=== PATIENT | female | born 1945 | race Caucasian/White ===

== ENCOUNTER → 2017-04-07 | Outpatient (CLI) | payer BC ==
[~2017-04-07] MED LIST: ASPI81TA21 PO; CALCCHW57 PO; CHOL100027 PO; DOXY100C76 PO; FSMD/70 PO; LOPE2TAB84 PO; NAPR1TAB9 PO
--- NOTE | 2017-04-07 13:38 | MAMMOGRAPHY REPORT ---
BILATERAL DIGITAL SCREENING MAMMOGRAM WITH CAD: 04/07/2017 CLINICAL HISTORY: Routine screening. Patient has no complaints. TECHNIQUE: Current study was also evaluated with a Computer Aided Detection (CAD) system. Bilateral CC and MLO views were obtained. COMPARISON: Comparison is made to exams dated: 03/16/2016 mammogram, 03/13/2015 mammogram, 4 mammogram, 03/11/2013 mammogram, 03/07/2012 mammogram, and 03/03/2011 mammogram - [facility]. BREAST COMPOSITION: There are scattered areas of fibroglandular density in both breasts. FINDINGS: No suspicious masses, calcifications, or areas of architectural distortion are noted in ei ther breast. There has been no significant interval change compared to prior exams. Circular markers zoltan bilateral moles. A round benign-appearing 7 mm mass within the left medial breast on the cc vi ew was previously marked with a mole marker on some of the prior exams, and is consistent with a misael gn skin mole. Bilateral benign-appearing calcifications are not significantly changed. IMPRESSION: ACR BI-RADS CATEGORY 2: BENIGN There is no mammographic evidence of malignancy. A 1 year screening mammogram is recommended. The pa tient will receive written notification of the results. Approximately 10% of breast cancers are not detected with mammography. A negative mammographic report should not delay biopsy if a clinically suggestive mass is present. Aixa Mar M.D. /:04/07/2017 12:22:22 Marketing Production Coordinator: Vinny Mccracken, M, [facility] letter sent: Normal 1/2 BI-RADS Code: ACR BI-RADS Category 2: Benign
== END | disposition home or self-care (01) ==
LOC: C.MAMM 08:43
PROVIDERS: ATTEND Obstetrics & Gynecology
DX: Z12.31 Encounter for screening mammogram for malignant neoplasm of breast (principal)

== ENCOUNTER → 2017-04-27 | Outpatient (CLI) | payer BC | END | disposition home or self-care (01) | LOC: C.MAMM 09:56 | PROVIDERS: ATTEND Nurse Practitioner Family | DX: M81.0 Age-related osteoporosis without current pathological fracture (principal); M85.851 Other specified disorders of bone density and structure, right thigh; M85.852 Other specified disorders of bone density and structure, left thigh ==

== ENCOUNTER → 2017-05-09 | Outpatient (CLI) | payer BC ==
--- NOTE | 2017-05-09 10:12 | DIAGNOSTIC IMAGING REPORT ---
CHEST 2 VIEWS ROUTINE CLINICAL HISTORY: Memory loss. COMPARISON STUDY: Chest radiograph August 26, 2014. FINDINGS: Lung volumes are normal. Lungs are clear. No pneumothorax or pleural effusion is noted. Cardiomediastinal silhouette is normal. Pulmonary vascularity is normal. IMPRESSION: No acute cardiopulmonary findings. Electronically signed by: Piotr Dobbs M.D. 05/09/2017 10:11 AM Dictated Date/Time: 05/09/2017 10:04 AM
== END | disposition home or self-care (01) ==
LOC: C.RAD 09:43
PROVIDERS: ATTEND Nurse Practitioner Family
DX: R41.3 Other amnesia (principal)

== ENCOUNTER → 2017-05-26 | Outpatient (CLI) | payer BC ==
[~2017-05-26] MED LIST changes: +GADAVIST IV PRN
--- NOTE | 2017-05-26 10:55 | DIAGNOSTIC IMAGING REPORT ---
BRAIN COMBO CLINICAL HISTORY: R41.3 COMPARISON STUDY: No previous studies for comparison. TECHNIQUE: Utilizing a 1.5 Afsaneh magnet and dedicated coil, multiplanar, multiecho imaging of the brain was performed pre and postcontrast administration. IV administration of 7.5 mL of Gadavist contrast was uneventful. FINDINGS: Significant atrophy over the cerebral convexities. Mild chronic small vessel change of aging. No evidence for an acute ischemic insult on diffusion. No abnormal postcontrast enhancement. Ventricular system is midline. Sella and parasellar regions are unremarkable. IMPRESSION: 1. Atrophy primarily over the cerebral convexities. 2. Mild chronic small vessel change. 3. Otherwise negative study. The above report was generated using voice recognition software. It may contain grammatical, syntax or spelling errors. Electronically signed by: Rao Stratton M.D. 05/26/2017 10:53 AM Dictated Date/Time: 05/26/2017 10:39 AM
== END | disposition home or self-care (01) ==
LOC: C.MRI 09:33
PROVIDERS: ATTEND Nurse Practitioner Family
DX: R41.3 Other amnesia (principal)

== ENCOUNTER 2020-01-20 09:38 | Observation (INO) ==
[2020-01-20 10:11] LABS: Basophils # (auto) 0.02 K/uL (0-0.2); Basophils % (auto) 0.4 %; Hematocrit (blood only) 46.2 % (37-47); Hemoglobin 16.1 g/dL (12.0-16.0); Lymphocytes # (auto) 1.43 K/uL (1.2-3.4); Lymphocytes % (auto) 29.2 %; Mean Corpuscular Hemoglobin 33.5 pg (25-34); Mean Corpuscular Hgb Conc 34.8 g/dL (32-36); Mean Corpuscular Volume 96.3 fL (80-100); Monocytes # (auto) 0.39 K/uL (0.11-0.59); Neutrophils # (auto) 2.95 K/uL (1.4-6.5); Neutrophils % (auto) 60.4 %; Platelet Count 188 K/uL (130-400); RDW Standard Deviation 45.3 fL (36.4-46.3); White Blood Count 4.89 K/uL (4.8-10.8)
[2020-01-20 10:31] LABS: Albumin Level 3.9 gm/dl (3.4-5.0); BUN Creatinine Ratio 14.2 (10-20); Blood Urea Nitrogen 11 mg/dl (7-18); Calcium 9.5 mg/dl (8.5-10.1); Carbon Dioxide 26 mmol/L (21-32); Chloride 107 mmol/L (98-107); Creatinine Clr Calc Pharmacy 67.2 ml/min; Est GFR (African American) 87.5; Est GFR (Non-African American) 75.5; Glucose 83 mg/dl (70-99); Magnesium 2.3 mg/dl (1.8-2.4); Potassium 3.9 mmol/L (3.5-5.1); Sodium 141 mmol/L (136-145)
[2020-01-20] MEDS ORDERED: dilTIAZem HCl 5 MG/ML 5 ML VIAL IV STA (10:31)
--- NOTE | 2020-01-20 10:31 | Emergency Department Note ---
Impression & Plan Atrial fibrillation with RVR, Light-headed ED Provider Note NAME: MARION OLMOS AGE: 74 SEX: F : 1945 ARRIVES VIA: Walk-In INFORMANT: Patient, ED PROVIDER(S): Amol Singleton MD Chief Complaint: DrClarissa referral, palpitations, lightheadedness HPI: [facility] as the patient did have some associated tachycardia and likely atrial fibrillation. Patient has had some associated lightheadedness for several months and palpitations that have been occasional. Patient denies any prior history of irregular heartbeat. The patient's caffeine intake has been normal occasional alcohol use patient denies any tobacco or supplements. Patient has been compl iant with medications. The only recent change was after seeing Dr. Chen she had been given some trazodone as she has had some cognitive issues. Patient denies any fevers, chest pains, shortness of breath, abdominal pain, nausea, vomiting, fevers, chills, or cough. The patient denies any history of DVT or PE is not on blood thinning medications and denies lower extremity swelling. ROS: See HPI for pertinent positives and negatives. A total of 10 systems were reviewed and otherwise negative. Past medical history: See below Surgical history: See below Social history: See below Physical Exam: GENERAL: Wearing glasses and a mask. NAD, non-toxic. EYE EXAM: Normal conjunctiva. PERRL, no anisocoria and EOM's grossly intact w/o pain. NECK: Supple, no nuchal rigidity, no adenopathy, non-tender. No signs of meningismus. LUNGS: Clear to auscultation. Normal chest wall mechanics. HEART: Tachycardic and irregularly irregular, no MRG. ABDOMEN: Abdomen soft, non-tender, normo-active bowel sounds, no masses, no rebound or guarding. BACK: No CVA TTP. SKIN: No rashes and no bruising. UPPER EXTREMITIES: Upper extremities are grossly normal. LOWER EXTREMITIES: Grossly normal, no edema. NEURO EXAM: A&O x3, cranial nerves II-XII grossly intact, normal speech, moves all 4 extremities on command w/o issue. Differential diagnoses: Premature contractions, electrolyte abnormality, cardiac dysrhythmia, thyroid dysfunction, pulmonary embolism, infection, gastrointestinal, as well as other pathologies. Course: Patient was seen and evaluated the bedside. Full history physical exam was p erformed. EKG: Location: Palpitations EKG was obtained after the patient had spontaneously converted. Normal sinus rhythm, rate 82, normal intervals, normal axis, no ST changes or T WI. Imaging Studies: None Cardiac monitoring: An order was placed for continuous cardiac monitoring. The monitor shows a rate of 125 with irregularly irregular rhythm. MDM: Patient was seen due to concern for palpitations. The patient is in A. fib with RVR. Blood work was obtained the patient was given Cardizem. The patient did have improvement in her rate control. Patient was started on heparin drip and I did speak with the on-call hospitalist and the patient was subsequently admitted to the medicine service. I did speak with the on-call spray machine tender Dr. Morin given the patient spontaneous conversion, [id number], still elevated and would warrant anticoagulant medication at this time. This was ordered. I did speak with Dr. Schaeffer of the internal medicine service. Patient was updated with the findings and is agreeable to plan of care. Critical Care: I have personally spent 45 minutes of critical care time in direct management of this patient. This includes bedside care, interpretation of diagnostic studies, and testing, discussion with consultants, patient, and family members, and other require inpatient management activities. This 45 minutes is in excess of all separately billable procedures. Past Med/Surg History Medical History Adjustment disorder with depressed mood Eustachian tube dysfunction FH: cholecystectomy Mild cognitive impairment Rosacea Surgical History S/P abdominal hysterectomy S/P total knee arthroplasty Family History Mother Colon cancer Cancer Father Colon cancer Lung cancer Cancer Social History Smoking Status: Former smoker Tobacco Type: Cigarettes Feels Safe at Home: Yes Allergies Allergies Allergy/AdvReac Type Severity Reaction Status Date / Time Cipro Allergy Unknown rash Verified 02/18/16 06:42 ciprofloxacin Allergy Unknown rash Verified 01/20/20 11:08 Home Meds Home Medications Medication Instructions Recorded Confirmed cholecalciferol (vitamin D3) 125 5,000 unit PO QAM tab 12/21/18 01/20/20 mcg (5,000 unit) tablet alendronate 70 mg tablet 70 mg PO WK tab 01/09/19 01/20/20 multivitamin 1 tab PO QAM 01/09/19 01/20/20 aspirin 81 mg PO WK 01/20/20 01/20/20 calcium carbonate [Tums] 600 mg PO QAM 01/20/20 01/20/20 loperamide 2 mg PO Q6H PRN 01/20/20 01/20/20 Previous Rx's Medication Instructions Recorded donepezil 10 mg tablet 10 mg PO QAM #90 tab 01/15/20 trazodone 50 mg tablet 50 mg PO HS #90 tab 01/15/20 Results & Data (ED) Vital Signs Vital Signs - 24 hr 01/20/20 09:42 01/20/20 10:40 01/20/20 10:50 Temperature 36.3 C L Temperature Source Oral Pulse Rate 122 H 83 Pulse Rate from SpO2 Sensor 74 86 Respiratory Rate 20 19 Blood Pressure 147/86 H Blood Pressure Mean 106 Pulse Oximetry 93 96 97 Oxygen Delivery Method Room Air Sepsis Recent Fever Within 48 Hours No Sepsis New/Unexplained Change in Mental Status N/A Sepsis Action Taken by Nursing No Action Required Home Medications Current Medication List: was personally reviewed by me Laboratory Data Attestation: I reviewed the patient's lab results. Result diagrams: 01/20/20 10:02 01/20/20 10:02 Lab Results 01/20/20 01/20/20 Range/Units 10:02 10:02 WBC 4.89 (4.8-10.8) K/uL RBC 4.80 (4.2-5.4) M/uL Hgb 16.1 H (12.0-16.0) g/dL Hct 46.2 (37-47) % MCV 96.3 (80-100) fL MCH 33.5 (25-34) pg MCHC 34.8 (32-36) g/dL RDW Std Deviation 45.3 (36.4-46.3) fL RDW Coeff of Dave 13.0 (11.5-14.5) % Plt Count 188 (130-400) K/uL MPV 11.0 H (7.4-10.4) fL Immature Gran % (Auto) 0.0 % Neut % (Auto) 60.4 % Lymph % (Auto) 29.2 % Ector % (Auto) 8.0 % Eos % (Auto) 2.0 % Baso % (Auto) 0.4 % Neut # (Auto) 2.95 (1.4-6.5) K/uL Lymph # (Auto) 1.43 (1.2-3.4) K/uL Ector # (Auto) 0.39 (0.11-0.59) K/uL Eos # (Auto) 0.10 (0-0.5) K/uL Baso # (Auto) 0.02 (0-0.2) K/uL Immature Gran # (Auto) 0.00 (0.00-0.02) K/uL Sodium 141 (136-145) mmol/L Potassium 3.9 (3.5-5.1) mmol/L Chloride 107 (98-107) mmol/L Carbon Dioxide 26 (21-32) mmol/L Anion Gap 8.0 (3-11) BUN 11 (7-18) mg/dl Creatinine 0.77 (0.6-1.2) mg/dl Est Cr Clr Drug Dosing 67.2 ml/min Est GFR ( Amer) 87.5 Est GFR (Non-Af Amer) 75.5 BUN/Creatinine Ratio 14.2 (10-20) Glucose 83 (70-99) mg/dl Calcium 9.5 (8.5-10.1) mg/dl Phosphorus 3.0 (2.5-4.9) mg/dl Magnesium 2.3 (1.8-2.4) mg/dl Total Bilirubin 0.7 (0.2-1) mg/dl AST 19 (15-37) U/L ALT 24 (12-78) U/L Alkaline Phosphatase 51 (45-117) U/L Troponin I < 0.015 (0-0.045) ng/ml Total Protein 7.3 (6.4-8.2) gm/dl Albumin 3.9 (3.4-5.0) gm/dl Globulin 3.4 (2.5-4.0) gm/dl Albumin/Globulin Ratio 1.1 (0.9-2) TSH 0.722 (0.300-4.500) uIu/ml Administered Medications Discontinued Medications Diltiazem HCl (Diltiazem Hcl 5 Mg/Ml 5 Ml Vial) 18 mg IV NOW STA Stop: 01/20/20 10:32 Last Admin: 01/20/20 10:50 Dose: Not Given Documented by: [id number] Discharge Plan Visit Data Chief Complaint: Arrhythmia/Palpitations Stated Complaint: AFIB ED Provider: Amol Singleton Discharge Problem: Atrial fibrillation with RVR, Light-headed Forms Stand Alone Forms: [facility] Prescriptions Prescriptions: No Action trazodone 50 mg tablet 50 mg PO HS Qty: 90 RF: 1 donepezil 10 mg tablet 10 mg PO QAM Qty: 90 RF: 1 cholecalciferol (vitamin D3) 5,000 unit tablet 5,000 unit PO QAM RF: 0 alendronate 70 mg tablet 70 mg PO WK RF: 0 multivitamin [Multiple Vitamins] tablet 1 tab PO QAM RF: 0 loperamide 2 mg Tablet 2 mg PO Q6H PRN (Reason: Diarrhea) RF: 0 calcium carbonate [Tums] 300 mg (750 mg) Tablet,Chewable 600 mg PO QAM RF: 0 aspirin 81 mg Tablet,Delayed Release (Dr/Ec) 81 mg PO WK RF: 0
[2020-01-20 10:42] LABS: Alanine Aminotransferase 24 U/L (12-78); Albumin Globulin Ratio 1.1 (0.9-2); Alkaline Phosphatase 51 U/L (45-117); Aspartate Aminotransferase 19 U/L (15-37); Bilirubin,Total 0.7 mg/dl (0.2-1); Globulin 3.4 gm/dl (2.5-4.0); Thyroid Stimulating Hormone 0.722 uIu/ml (0.300-4.500); Total Protein 7.3 gm/dl (6.4-8.2); Troponin I < 0.015 ng/ml (0-0.045)
[2020-01-20] MEDS ORDERED: Heparin IV Standard *NO* Bolus IV ONE (11:02)
[2020-01-20] MEDS ORDERED: HEPARIN SODIUM/DEXTROSE 25,000 UNITS/500 ML BAG IV SCH (11:15)
--- NOTE | 2020-01-20 11:25 | History & Physical Report ---
Date of Service January 20, 2020 Assessment & Plan (1) Atrial fibrillation with RVR: - Admit to tele for obs -likely ongoing for 3-6 months with symptoms - Initially EKG showed afib with RVR in the 140s-150s, but then spontaneously converted prior to receiving any medication in the ER. Will start metoprolol tartrate 25 mg BID as her BP can tolerate this with being slightly elevated at 147/86. - Consult cardiology [id number] score 3 for female age 74, high risk - Started on heparin gtt, will continue - likely can switch to DOAC tomorrow pending cardiology recs - Trend cardiac biomarkers, initial set was negative - EKG reviewed - Check 2 D echo -was on ASA 1x/week at home-hold/dc in favor of anticoagulation - PT/OT consulted (2) Rosacea: - noted (3) Mild cognitive impairment: - Cont aricept, some difficulty recalling short term events at baseline. Spouse helps support the history at bedside. (4) Osteoporosis: continue Fosamax, Vit D, calcium (5) Insomnia: stable, continue trazodone (6) DVT prophylaxis: - heparin gtt CODE: Full Dispo: admit to PCU on OBS History of Present Illness Primary Care Provider: EMILEE Fermin This is a 74 yo female with PMHx of mild cognitive impairment, rosacea, who presents with acute onset of palpitations, with reports of lightheadedness intermittently over the past 6 months. She was having palpitations and had lightheadedness therefore went to her PCPs office this morning. There EKG was completed showing A. fib awith RVR in the 140s to 150s and was referred to the ER. Once here she was ordered to have IV diltiazem, however spontaneously converted prior to receiving any medication. At bedside the patient denies any palpitations, lightheadedness, dizziness. She was seen back in May by PCP where she wore a Holter monitor for 24 hours which did not result in any abnormal findings. She does not currently take any cardiac medications or has ever required seeing a floating derrick operator in the past. Patient walks approximately 1/2 miles per day but otherwise does not exercise routinely. She drinks 1 glass of wine daily, and quit smoking 30 years ago, where she smoked 1 pack/day x 20 years. Her , Xochilt, is present with her at bedside and helps support the history. Allergies Allergy/AdvReac Type Severity Reaction Status Date / Time Cipro Allergy Unknown rash Verified 02/18/16 06:42 ciprofloxacin Allergy Unknown rash Verified 01/20/20 11:08 Home Medications Home Medications Medication Instructions Recorded Confirmed Type cholecalciferol (vitamin D3) 125 5,000 unit PO QAM tab 12/21/18 01/20/20 History mcg (5,000 unit) tablet alendronate 70 mg tablet 70 mg PO WK tab 01/09/19 01/20/20 History multivitamin 1 tab PO QAM 01/09/19 01/20/20 History donepezil 10 mg tablet 10 mg PO QAM #90 tab 01/15/20 01/20/20 Rx trazodone 50 mg tablet 50 mg PO HS #90 tab 01/15/20 01/20/20 Rx aspirin 81 mg PO WK 01/20/20 01/20/20 History calcium carbonate [Tums] 600 mg PO QAM 01/20/20 01/20/20 History loperamide 2 mg PO Q6H PRN 01/20/20 01/20/20 History Past Med/Surg History Medical History Adjustment disorder with depressed mood Eustachian tube dysfunction FH: cholecystectomy Mild cognitive impairment Osteoporosis Rosacea Surgical History S/P abdominal hysterectomy S/P cholecystectomy S/P total knee arthroplasty bilateral, 2009 and 2004 Family History Mother Colon cancer Cancer Father Colon cancer Lung cancer Cancer Social History (Updated 01/20/20 @ 12:31 by Anamaria Schaeffer MD) Smoking Status: Former smoker Tobacco Type: Cigarettes Age Quit Using Tobacco: 44; Cigarettes Per Day: 20; Hx Alcohol Use: Yes Alcohol type: wine Hx Substance Use: No Preferred Language: Maori Communication Ability: Effective Auto Garage Mechanic Required: No Beliefs That Will Affect Care: None Current Living Situation: Spouse Other Information That Helps Us Care for You: No Feels Safe at Home: Yes Safety Concerns: Feels Safe At This Time Assistive Devices: Glasses Review of Systems Review of Systems: Constitutional: No fever, sweats or chills Eyes: No diplopia, no worsening or blurred vision ENT: normal hearing, no trouble swallowing Respiratory: No cough, sputum, dyspnea at rest or on exertion Cardiovascular: No chest pain, tightness or palpitations Abdomen: No pain, nausea, vomiting, diarrhea or constipation Musculoskeletal: No joint pain, calf pain, swelling Neurologic: No weakness, numbness/tingling, or balance problems Psychiatric: No anxiety or depression Skin: No rash or itch Physical Exam Physical Exam: General: awake, alert, no apparent distress Head: Normocephalic, atraumatic ENT: PERRL, EOMI, no pharyngeal exudate, mucous membranes moist Chest: Clear to auscultation, on room air, no adventitious breath sounds Cardiac: Regular rate and rhythm, no murmur, no JVD, normal peripheral pulses, good capillary refill Abdominal: NABS x 4 quadrants, soft, nondistended, nontender to palpation, no r ebound or guarding Extremities: Normal inspection, no peripheral edema or erythema, calfs nontender to palpation Psych: Normal mood and affect Neuro: AAO x 3, strength intact bilaterally and rated 5/5, no motor deficits, speech is clear, no peripheral sensory deficits Results & Data Results & Data ([facility]) Vital Signs (Past 12 Hours) Vital Signs Temp Pulse Resp BP Pulse Ox 01/20/20 10:50 83 19 97 01/20/20 10:40 96 01/20/20 09:42 36.3 C L 122 H 20 147/86 H 93 ECG Additional Comments: 20-JAN-2020 09:49:56 [facility]-EDSTAT ROUTINE RETRIEVAL Atrial fibrillation with rapid ventricular response Marked ST abnormality, possible inferior subendocardial injury Abnormal ECG When compared with ECG of 09-FEB-2016 16:27, Atrial fibrillation has replaced Sinus rhythm Vent. rate has increased BY [address] now depressed in Inferior leads ST now depressed in Anterolateral leads Nonspecific T wave abnormality now evident in Inferior leads T wave inversion now evident in Lateral leads 25mm/s 10mm/mV 150Hz 9.0.9 12SL 241 LYNEN: 16 Referred by: REFERRED SELF Unconfirmed Vent. rate 147 BPM GA interval * ms QRS duration 96 ms QT/QTc 288/450 ms P-R-T axes * 50 207 Code Status & VTE Plan Code Status Full code-discussed with the patient at bedside Supervising Physician Co-Signing Physician Notes PA Supervision Note: I personally saw and examined the patient. I verified all gonzalez points and agree with YVETTE Reno with the following exceptions and/or additions: Pt presented with intermittent palpitations for several months, found ot have rapid afib in PCP office today and sent to ER for further assessment, SPontaneously converted to NSR in ER without any medication being given. Has been having palpitations, occasional dizziness for several months. PMH and ROS reviewed as above Vitals reviewed Gen: AAOx3, NAD HEENT: Anicteric sclerae, EOMI CV: RRR no mgr nl S1S2 Pulm: CTAB no wcr Abd: +BS soft NT ND no masses or hernias Ext: No edema, 2+ DP pulses Skin: No rashes, warm/dry Neuro: Full strength throughout Laboratory values, ECG all personally reviewed by me 74-year-old female with history of osteoporosis, insomnia, and mild cognitive impairment, here with new onset of rapid atrial fibrillation. We will attempt rate control strategy by adding metoprolol tartrate and carefully watching blood pressure and heart rate. Check echocardiogram and consult cardiology for further recommendations. May end up needing antiarrhythmic strategy as she typically has a low resting heart rate and low blood pressure as per her home readings. May not tolerate AV theron rate control strategy. Continue with heparin drip started in the ER for now and as above, will likely convert to DOAC if cost affordable. This was discussed with patient who is agreeable to all treatment. Follow BMP and CBC, replete electrolytes as needed, and watch for any evidence of bleeding while on anticoagulation. Continue other home medications as above. PG Care Time/CCT Total # of Minutes Spent Total Time Spent with Patient: Total time spent is greater than 50% in coordination of care (as documented) at patient's floor/unit and/or counseling patient: Coding Level of Care Code 22445 OBS Care - Level 3 Diagnoses Atrial fibrillation with RVR I48.91 Rosacea L71.9 Mild cognitive impairment G31.84 Osteoporosis M81.0 Insomnia G47.00 DVT prophylaxis Z29.9
[2020-01-20] MEDS ORDERED: METOPROLOL TARTRATE 25 MG TAB PO SCH ×2 (12:00→16:40)
[2020-01-20] MEDS ORDERED: ONDANSETRON INJ 2 MG/ML 2 ML VIAL IV PRN (14:39)
[2020-01-20] MEDS ORDERED: ACETAMINOPHEN 325 MG TAB PO PRN (14:39)
--- NOTE | 2020-01-20 15:48 | Cardiology Consultation ---
Date of Consultation January 20, 2020 Assessment & Plan (1) Atrial fibrillation with RVR: She presents with atrial fibrillation and symptoms of palpitations but not lightheadedness or dizziness. She has had intermittent palpitations over the last month but she describes these being brief, 10 to 15 seconds, so it is not clear if this represents prior atrial fibrillation. I suspect her memory is not very accurate however. In any case I would try rate control (she does have a low blood pressure but she needs to be on something for rate control) and anticoagulation. Currently on heparin, I would transition to one of the newer agents. Her echocardiogram visually looks unremarkable when I reviewed it quickly in the echo reading room. History of Present Illness Reason for Consultation: AF with rapid ventricular response Attending Physician: Anamaria Schaeffer MD History of Present Illness This is a 74-year-old woman with a history of osteoporosis who presents with intermittent palpitations. The duration of the palpitations is unclear but she has had intermittent palpitations for some months. She apparently has had lightheadedness and palpitations on occasion although they have been infrequent and brief. Her memory may not be clear due to some cognitive impairment. Typically she tells me the palpitations are 10 to 15 seconds although perhaps there longer. She presented after being identified as having tachycardia identified at [facility]. In the emergency room she was observed to have atrial fibrillation with a heart rate of about 140 bpm, this converted after about 1/2- hour to sinus rhythm. She was admitted, anticoagulated with heparin. I evaluated her in the echo room when she was getting her echo done. Following conversion she felt well, she has no other cardiovascular symptoms such as shortness of breath, chest discomfort or activity limitation by her history. Allergies Allergy/AdvReac Type Severity Reaction Status Date / Time Cipro Allergy Unknown rash Verified 02/18/16 06:42 ciprofloxacin Allergy Unknown rash Verified 01/20/20 11:08 Home Medications Home Medications Medication Instructions Recorded Confirmed Type cholecalciferol (vitamin D3) 125 5,000 unit PO QAM tab 12/21/18 01/20/20 History mcg (5,000 unit) tablet alendronate 70 mg tablet 70 mg PO WK tab 01/09/19 01/20/20 History multivitamin 1 tab PO QAM 01/09/19 01/20/20 History donepezil 10 mg tablet 10 mg PO QAM #90 tab 01/15/20 01/20/20 Rx trazodone 50 mg tablet 50 mg PO HS #90 tab 01/15/20 01/20/20 Rx aspirin 81 mg PO WK 01/20/20 01/20/20 History calcium carbonate [Tums] 600 mg PO QAM 01/20/20 01/20/20 History loperamide 2 mg PO Q6H PRN 01/20/20 01/20/20 History Patient History Medical History Adjustment disorder with depressed mood Eustachian tube dysfunction FH: cholecystectomy Mild cognitive impairment Osteoporosis Rosacea Surgical History S/P abdominal hysterectomy S/P cholecystectomy S/P total knee arthroplasty bilateral, 2009 and 2004 Family History Mother Colon cancer Cancer Father Colon cancer Lung cancer Cancer Social History Smoking Status: Former smoker Tobacco Type: Cigarettes Age Quit Using Tobacco: 44; Cigarettes Per Day: 20; Hx Alcohol Use: Yes Alcohol type: wine Hx Substance Use: No Preferred Language: Samoan Communication Ability: Effective Chemistry Faculty Member Required: No Beliefs That Will Affect Care: None Current Living Situation: Spouse Other Information That Helps Us Care for You: No Feels Safe at Home: Yes Safety Concerns: Feels Safe At This Time Assistive Devices: None Review of Systems Review of Systems: All systems reviewed & are unremarkable except as noted in HPI & below Physical Exam Physical Exam: Constitutional: Alert, cooperative and in no distress. HEENT: Unremarkable Neck: No jugular venous distention, carotid pulses are normal and equal bilaterally without bruits. Pulmonary: Clear to auscultation bilaterally. Cardiac: Regular rhythm with no murmur, gallop or rub. Abdomen: Soft, nontender with normal bowel sounds. Extremities: No edema. Distal pulses intact. Neurologic: No focal findings. Gait is steady. Skin: No rash, ecchymoses or petechiae. Results & Data ([facility]) Vital Signs (Past 12 Hours) Vital Signs Temp Pulse Pulse Resp BP BP Pulse Ox 01/20/20 15:00 36.6 C 66 18 141/77 H 95 01/20/20 14:39 72 01/20/20 14:31 36.6 C 66 18 141/77 H 95 01/20/20 13:50 71 21 97 01/20/20 13:40 70 21 98 01/20/20 13:30 75 23 119/67 96 01/20/20 13:20 73 18 96 01/20/20 13:10 74 22 95 01/20/20 13:00 74 16 126/74 95 01/20/20 12:50 73 19 97 01/20/20 12:44 73 21 97 01/20/20 12:30 77 17 117/78 96 01/20/20 12:20 77 21 96 01/20/20 12:10 80 19 97 01/20/20 12:00 73 19 133/61 98 01/20/20 11:50 70 19 97 01/20/20 11:40 77 22 96 01/20/20 11:30 74 19 148/82 H 96 01/20/20 11:20 75 21 94 01/20/20 11:10 83 18 96 01/20/20 11:00 88 17 123/82 95 01/20/20 10:50 83 19 97 01/20/20 10:40 96 01/20/20 09:42 36.3 C L 122 H 20 147/86 H 93 Diagnostic Findings Telemetry: Atrial fibrillation for the first half hour in the emergency room followed by termination to sinus rhythm. Rate about 140 bpm during atrial fibrillation. Electrocardiogram: Her presenting electrocardiogram on January 20, 2020 at 9:49 AM shows atrial fibrillation with a heart rate of 147 bpm. Her prior electrocardiogram from January 2016 showed sinus rhythm. A subsequent electrocardiogram at 10:47 AM shows sinus rhythm at 82 bpm. Echocardiogram: Normal LV function, no significant valvular abnormalities. She does have MAC. PG Care Time/CCT Total # of Minutes Spent Total Time Spent with Patient: Total time spent is greater than 50% in coordination of care (as documented) at patient's floor/unit and/or counseling patient: Coding Level of Care Code 90953 Initial Inpt Care Lvl 3 Diagnoses Atrial fibrillation with RVR I48.91
--- NOTE | 2020-01-20 16:32 | XCELERA ---
[id number] \\[id number]
[2020-01-20 18:43] LABS: Partial Thromboplastin Ratio 2.1
[2020-01-20 18:56] LABS: Partial Thromboplastin Time 57.6 Seconds (21.0-31.0)
[2020-01-20 19:30] LABS: Basophils # (auto) 0.03 K/uL (0-0.2); Basophils % (auto) 0.6 %; Eosinophils # (auto) 0.08 K/uL (0-0.5); Eosinophils % (auto) 1.5 %; Hematocrit (blood only) 43.5 % (37-47); Hemoglobin 14.9 g/dL (12.0-16.0); Immature Granulocytes # (auto) 0.01 K/uL (0.00-0.02); Immature Granulocytes % (auto) 0.2 %; Lymphocytes # (auto) 1.82 K/uL (1.2-3.4); Lymphocytes % (auto) 33.8 %; Mean Corpuscular Hemoglobin 33.2 pg (25-34); Mean Corpuscular Hgb Conc 34.3 g/dL (32-36); Mean Corpuscular Volume 96.9 fL (80-100); Mean Platelet Volume 11.1 fL (7.4-10.4); Monocytes # (auto) 0.39 K/uL (0.11-0.59); Monocytes % (auto) 7.2 %; Neutrophils # (auto) 3.06 K/uL (1.4-6.5); Neutrophils % (auto) 56.7 %; Platelet Count 188 K/uL (130-400); RDW Coefficient of Variation 12.8 % (11.5-14.5); RDW Standard Deviation 45.4 fL (36.4-46.3); Red Blood Count 4.49 M/uL (4.2-5.4); White Blood Count 5.39 K/uL (4.8-10.8)
[2020-01-20] MEDS: TRAZODONE HCL 50 MG TAB PO SCH (20:37)
[2020-01-20] MEDS: APIXABAN 5 MG TABLET PO SCH (20:37)
[2020-01-21 07:03] LABS: Albumin Level 3.4 gm/dl (3.4-5.0); BUN Creatinine Ratio 15.6 (10-20); Calcium 8.9 mg/dl (8.5-10.1); Creatinine Clr Calc Pharmacy 66.5 ml/min; Est GFR (African American) 87.5; Est GFR (Non-African American) 75.5; Magnesium 2.4 mg/dl (1.8-2.4); Potassium 4.4 mmol/L (3.5-5.1)
[2020-01-21 07:06] LABS: Albumin Globulin Ratio 1.1 (0.9-2); Bilirubin,Total 0.9 mg/dl (0.2-1); Globulin 3.1 gm/dl (2.5-4.0); Total Protein 6.5 gm/dl (6.4-8.2)
[2020-01-21] MEDS: CALCIUM CARBONATE 500 MG CHEWABLE TAB PO SCH (08:43)
[2020-01-21] MEDS: CHOLECALCIFEROL 1,000 UNITS 25 MCG TAB PO SCH (08:44)
[2020-01-21] MEDS: DONEPEZIL HCL 10 MG TAB PO SCH (08:44)
[2020-01-21] MEDS: APIXABAN 5 MG TABLET PO SCH ×2 (08:44→19:42)
[2020-01-21] MEDS: MULTIVITAMIN TAB PO SCH (08:44)
[2020-01-21] MEDS: METOPROLOL SUCC 25MG EXT REL TAB PO SCH ×2 (08:48→10:44)
--- NOTE | 2020-01-21 09:03 | Cardiology Progress Note ---
Date of Service January 21, 2020 Assessment & Plan (1) Atrial fibrillation with RVR: She presented with atrial fibrillation and symptoms of palpitations but not lightheadedness or dizziness at that time. She has had intermittent palpitations over the last month but she describes these being brief, 10 to 15 seconds, so it is not clear if this represents prior atrial fibrillation. I suspect her memory is not very accurate however. In any case I would continue with rate control (she does have a labile blood pressure but she needs to be on something for rate control and she is tolerating low-dose metoprolol) and anticoagulation. Currently on Eliquis at the proper dose. I am going to increase her metoprolol to 25 mg twice a day to help control heart rate. We can see her in the office rather than keep her here, although she is having enough atrial fibrillation that we could continue with rate control in-house for another day or so if desired. Admission and Anticipated Discharge Date Admission Date: January 20, 2020 Subjective She is feeling very well today, she has no complaints including no palpitations despite the fact that she is in atrial fibrillation this morning. We did start low-dose metoprolol yesterday (in part because her blood pressure was on the low side) which she is tolerating well with no symptoms of dizziness. She is doing well on Eliquis with no side effects or bleeding. Physical Exam Physical Exam: Constitutional: Alert, cooperative and in no distress. HEENT: Unremarkable Neck: No jugular venous distention, carotid pulses are irregular but otherwise normal and equal bilaterally without bruits. Pulmonary: Clear to auscultation bilaterally. Cardiac: Irregular somewhat rapid rhythm with no murmur, gallop or rub. Abdomen: Soft, nontender with normal bowel sounds. Extremities: No edema. Distal pulses intact. Neurologic: No focal findings. Gait is steady. Skin: No rash, ecchymoses or petechiae. Results & Data ([facility]) Vital Signs (Past 12 Hours) Vital Signs Temp Pulse Pulse Resp BP Pulse Ox 01/21/20 07:15 59 L 01/21/20 07:03 36.5 C 18 L 18 156/79 H 93 01/21/20 04:58 36.7 C 62 20 131/76 96 01/21/20 00:00 58 L 01/20/20 22:44 36.6 C 62 18 120/68 94 Laboratory Results Cardiac Enzymes 01/20/20 01/20/20 01/21/20 Range/Units 10:02 17:56 05:48 AST 19 17 (15-37) U/L Troponin I < 0.015 < 0.015 (0-0.045) ng/ml Coagulation 01/20/20 Range/Units 17:56 APTT 57.6 H* (21.0-31.0) Seconds CBC 01/20/20 01/20/20 Range/Units 10:02 19:12 WBC 4.89 5.39 (4.8-10.8) K/uL RBC 4.80 4.49 (4.2-5.4) M/uL Hgb 16.1 H 14.9 (12.0-16.0) g/dL Hct 46.2 43.5 (37-47) % Plt Count 188 188 (130-400) K/uL Neut # (Auto) 2.95 3.06 (1.4-6.5) K/uL Lymph # (Auto) 1.43 1.82 (1.2-3.4) K/uL [place] # (Auto) 0.39 0.39 (0.11-0.59) K/uL Eos # (Auto) 0.10 0.08 (0-0.5) K/uL Baso # (Auto) 0.02 0.03 (0-0.2) K/uL Comprehensive Metabolic Panel 01/20/20 01/21/20 Range/Units 10:02 05:48 Sodium 141 140 (136-145) mmol/L Potassium 3.9 4.4 (3.5-5.1) mmol/L Chloride 107 107 (98-107) mmol/L Carbon Dioxide 26 29 (21-32) mmol/L BUN 11 12 (7-18) mg/dl Creatinine 0.77 0.77 (0.6-1.2) mg/dl Glucose 83 83 (70-99) mg/dl Calcium 9.5 8.9 (8.5-10.1) mg/dl AST 19 17 (15-37) U/L ALT 24 22 (12-78) U/L Alkaline Phosphatase 51 47 (45-117) U/L Total Protein 7.3 6.5 (6.4-8.2) gm/dl Albumin 3.9 3.4 (3.4-5.0) gm/dl Intake and Output 01/20/20 01/21/20 01/21/20 22:59 06:59 14:59 Intake Total 561.6 / 1111.6 550 / 1111.6 Balance 561.6 / 1111.6 550 / 1111.6 Intake: IV 211.6 / 211.6 HEPARIN SODIUM/DEXTROSE 25,000 211.6 / 211.6 units In 500 ml @ 1,200 UNITS/ HR 24 mls/hr IV .[id number] ANH Rx #:[id number] Oral 350 / 900 550 / 900 Other: # Unmeasured Voids 1 Weight 74.4 kg Diagnostic Findings Telemetry: Mostly sinus rhythm and sinus bradycardia with a heart rate generally in the 60s during sinus rhythm. Intermittent atrial fibrillation, the episodes tend to be brief, she does not seem to notice them, currently at the time my evaluation she was in atrial fibrillation a heart rate of about 140 bpm. PG Care Time/CCT Total # of Minutes Spent Total Time Spent with Patient: Total time spent is greater than 50% in coordination of care (as documented) at patient's floor/unit and/or counseling patient: Coding Level of Care Code 76424 Subseq Hosp Care Lvl 3 Diagnoses Atrial fibrillation with RVR I48.91
[2020-01-21] MEDS ORDERED: METOPROLOL TARTRATE 1 MG/ML VIAL IV ONE (09:15)
[2020-01-21] MEDS: METOPROLOL TARTRATE 25 MG TAB PO SCH ×2 (10:44→19:42)
--- NOTE | 2020-01-21 11:04 | Hospitalist Progress Note ---
Date of Service January 21, 2020 Assessment & Plan (1) Atrial fibrillation with RVR: Previous negative holter monitor, but given HPI on admission, likely occuring for at least past 3-6 months * Continue to monitor on telemetry --> patient had spontaneous conversion on the ER back to NSR, although has been flipping in and out of afib with rates up to the 150s. * Had been initiated on metoprolol tartrate 12.5mg BID on admission for rate control and maintaining normal rhythm although home BP readings have been on the lower side so will need to monitor closely. * --> Appears BP tolerating well, 156/79 morning of 01/20 and still 132/69 after increased metoprolol tartrate to 25mg BID * Of note, incorrectly ordered and charted this morning although patient did receive correct metorpolol tartrate 25mg instead of 12.5mg dose as cardiology was in the room with patient at the time of administration and requested whole tablet. Ordered for 25mg BID moving forward * Cardiology consulted -- appreciate assistance * Had been on heparin on admission --> transitioned to Eliquis 5mg BID evening 01/19 and to be continued at discharge. [id number] score 3 for female age 74, high risk. Will d/c ASA * ECHO with LV systolic function normal, mod-severe mitral annular calcification, RV systolic pressure normal * TSH wnl at 0.722 * Continue to monitor on telemetry overnight (2) Rosacea: * noted (3) Mild cognitive impairment: * Continue aricept, some difficulty recalling short term events at baseline. Spouse, Xochilt, helps support the history at bedside. (4) Osteoporosis: * continue Fosamax, Vit D, calcium (5) Insomnia: * stable, continue trazodone (6) DVT prophylaxis: * Now on Eliquis PT/OT with patient at baseline. Dispo: likely discharge in AM Admission and Anticipated Discharge Date Admission Date: January 20, 2020 Subjective Patient evaluated this morning at bedside. Partner Xochilt present at this time. No further episodes of palpitations, lightheadedness or dizziness despite continually flipping into afib on monitor. Discussed that while negative Holter monitor in the past, could very well have been flipping in and out and just didn't occur during that shorter period of time. Discussed TSH wnl. Discussed conversation with cardiology to increase the metoprolol to 25mg twice daily to see if we can obtain better rate control now that she will is on the Eliquis. Agreeable to wait overnight for additional monitoring/further medication titration as needed and hopeful discharge tomorrow. No fever, chills, chest pain, shortness of breath, cough, headache, palpitations, abdominal pain, nausea, vomiting, dysuria at this time. Questions/concerns addressed. Review of Systems Review of Systems: All systems reviewed & are unremarkable except as noted in HPI & below Physical Exam Constitutional: WD/WN, vitals as above no acute distress Eyes: + anicteric sclerae and PERRL Neck: normal visual inspection Respiratory: normal respiratory effort, lungs clear to auscultation Cardiovascular: RRR, no murmur, no edema Gastrointestinal (Abdomen): normal bowel sounds, soft, nontender, no hepatosplenomegaly Musculoskeletal: no cyanosis or clubbing, extremities motor strength 5/5 Skin: warm, dry Neurologic: PERRL, EOMI, accommodation nl, no face palsy, no dysarthria Psychiatric: Orientation: alert and oriented x 3 Lymphatic: no cervical or axillary lymphadenopathy Results & Data Results & Data ([facility]) Vital Signs (Past 12 Hours) Vital Signs Temp Pulse Pulse Resp BP Pulse Ox 01/21/20 07:15 59 L 01/21/20 07:03 36.5 C 18 L 18 156/79 H 93 01/21/20 04:58 36.7 C 62 20 131/76 96 01/21/20 00:00 58 L Laboratory Results 01/21/20 01/20/20 01/20/20 Range/Units 05:48 19:12 17:56 WBC 5.39 (4.8-10.8) K/uL RBC 4.49 (4.2-5.4) M/uL Hgb 14.9 (12.0-16.0) g/dL Hct 43.5 (37-47) % MCV 96.9 (80-100) fL MCH 33.2 (25-34) pg MCHC 34.3 (32-36) g/dL RDW Std Deviation 45.4 (36.4-46.3) fL RDW Coeff of Dave 12.8 (11.5-14.5) % Plt Count 188 (130-400) K/uL MPV 11.1 H (7.4-10.4) fL Immature Gran % (Auto) 0.2 % Neut % (Auto) 56.7 % Lymph % (Auto) 33.8 % [place] % (Auto) 7.2 % Eos % (Auto) 1.5 % Baso % (Auto) 0.6 % Neut # (Auto) 3.06 (1.4-6.5) K/uL Lymph # (Auto) 1.82 (1.2-3.4) K/uL [place] # (Auto) 0.39 (0.11-0.59) K/uL Eos # (Auto) 0.08 (0-0.5) K/uL Baso # (Auto) 0.03 (0-0.2) K/uL Immature Gran # (Auto) 0.01 (0.00-0.02) K/uL APTT 57.6 H* (21.0-31.0) Seconds PTT Ratio 2.1 Sodium 140 (136-145) mmol/L Potassium 4.4 (3.5-5.1) mmol/L Chloride 107 (98-107) mmol/L Carbon Dioxide 29 (21-32) mmol/L Anion Gap 4.0 (3-11) BUN 12 (7-18) mg/dl Creatinine 0.77 (0.6-1.2) mg/dl Est Cr Clr Drug Dosing 66.5 ml/min Est GFR ( Amer) 87.5 Est GFR (Non-Af Amer) 75.5 BUN/Creatinine Ratio 15.6 (10-20) Glucose 83 (70-99) mg/dl Calcium 8.9 (8.5-10.1) mg/dl Magnesium 2.4 (1.8-2.4) mg/dl Total Bilirubin 0.9 (0.2-1) mg/dl AST 17 (15-37) U/L ALT 22 (12-78) U/L Alkaline Phosphatase 47 (45-117) U/L Troponin I (0-0.045) ng/ml Total Protein 6.5 (6.4-8.2) gm/dl Albumin 3.4 (3.4-5.0) gm/dl Globulin 3.1 (2.5-4.0) gm/dl Albumin/Globulin Ratio 1.1 (0.9-2) 01/20/20 Range/Units 17:56 WBC (4.8-10.8) K/uL RBC (4.2-5.4) M/uL Hgb (12.0-16.0) g/dL Hct (37-47) % MCV (80-100) fL MCH (25-34) pg MCHC (32-36) g/dL RDW Std Deviation (36.4-46.3) fL RDW Coeff of Dave (11.5-14.5) % Plt Count (130-400) K/uL MPV (7.4-10.4) fL Immature Gran % (Auto) % Neut % (Auto) % Lymph % (Auto) % [place] % (Auto) % Eos % (Auto) % Baso % (Auto) % Neut # (Auto) (1.4-6.5) K/uL Lymph # (Auto) (1.2-3.4) K/uL [place] # (Auto) (0.11-0.59) K/uL Eos # (Auto) (0-0.5) K/uL Baso # (Auto) (0-0.2) K/uL Immature Gran # (Auto) (0.00-0.02) K/uL APTT (21.0-31.0) Seconds PTT Ratio Sodium (136-145) mmol/L Potassium (3.5-5.1) mmol/L Chloride (98-107) mmol/L Carbon Dioxide (21-32) mmol/L Anion Gap (3-11) BUN (7-18) mg/dl Creatinine (0.6-1.2) mg/dl Est Cr Clr Drug Dosing ml/min Est GFR ( Amer) Est GFR (Non-Af Amer) BUN/Creatinine Ratio (10-20) Glucose (70-99) mg/dl Calcium (8.5-10.1) mg/dl Magnesium (1.8-2.4) mg/dl Total Bilirubin (0.2-1) mg/dl AST (15-37) U/L ALT (12-78) U/L Alkaline Phosphatase (45-117) U/L Troponin I < 0.015 (0-0.045) ng/ml Total Protein (6.4-8.2) gm/dl Albumin (3.4-5.0) gm/dl Globulin (2.5-4.0) gm/dl Albumin/Globulin Ratio (0.9-2) Diagnostic Findings ECHO PG Care Time/CCT Total # of Minutes Spent Total Time Spent with Patient: Total time spent is greater than 50% in coordination of care (as documented) at patient's floor/unit and/or counseling patient: Coding Level of Care Code 72524 Subseq Hosp Care Lvl 2 Diagnoses Atrial fibrillation with RVR I48.91 Rosacea L71.9 Mild cognitive impairment G31.84 Osteoporosis M81.0 Insomnia G47.00 DVT prophylaxis Z29.9
--- NOTE | 2020-01-21 15:26 | Electrocardiogram Report ---
Test Reason : Blood Pressure : / mmHG Vent. Rate : 147 BPM Atrial Rate : 357 BPM P-R Int : 000 ms QRS Dur : 096 ms QT Int : 288 ms P-R-T Axes : 000 050 207 degrees QTc Int : 450 ms Atrial fibrillation with rapid ventricular response Marked ST abnormality, possible inferior subendocardial injury Abnormal ECG When compared with ECG of 09-FEB-2016 16:27, Atrial fibrillation has replaced Sinus rhythm Vent. rate has increased BY [address] now depressed in Inferior leads ST now depressed in Anterolateral leads Confirmed by Misbah Valadez ([id number]) on 01/21/2020 3:25:29 PM Referred By: REFERRED SELF Confirmed By:Misbah Valadez
--- NOTE | 2020-01-21 15:30 | Electrocardiogram Report ---
Test Reason : Blood Pressure : / mmHG Vent. Rate : 082 BPM Atrial Rate : 082 BPM P-R Int : 154 ms QRS Dur : 106 ms QT Int : 360 ms P-R-T Axes : 060 029 050 degrees QTc Int : 420 ms Normal sinus rhythm Possible Left atrial enlargement Borderline ECG When compared with ECG of 20-JAN-2020 09:49, (unconfirmed) Sinus rhythm has replaced Atrial fibrillation Vent. rate has decreased BY [address] no longer depressed in Inferior leads ST no longer depressed in Anterolateral leads Confirmed by Misbah Valadez ([id number]) on 01/21/2020 3:30:03 PM Referred By: REFERRED SELF Confirmed By:Misbah Valadez
[2020-01-21] MEDS: TRAZODONE HCL 50 MG TAB PO SCH (19:42)
[2020-01-22] MEDS: CALCIUM CARBONATE 500 MG CHEWABLE TAB PO SCH (07:40)
[2020-01-22] MEDS: APIXABAN 5 MG TABLET PO SCH (07:40)
[2020-01-22] MEDS: CHOLECALCIFEROL 1,000 UNITS 25 MCG TAB PO SCH (07:40)
[2020-01-22] MEDS: MULTIVITAMIN TAB PO SCH (07:40)
[2020-01-22] MEDS: METOPROLOL TARTRATE 25 MG TAB PO SCH (07:40)
[2020-01-22] MEDS: DONEPEZIL HCL 10 MG TAB PO SCH (07:41)
[2020-01-22 08:02] LABS: Calcium 9.1 mg/dl (8.5-10.1); Potassium 4.2 mmol/L (3.5-5.1)
[2020-01-22 08:13] LABS: BUN Creatinine Ratio 16.7 (10-20); Creatinine Clr Calc Pharmacy 61.9 ml/min; Est GFR (African American) 79.9
[2020-01-22] MEDS ORDERED: METOPROLOL TARTRATE 1 MG/ML VIAL IV STA (08:55)
--- NOTE | 2020-01-22 11:38 | Hospitalist Progress Note ---
Date of Service January 22, 2020 Assessment & Plan Admission and Anticipated Discharge Date Admission Date: January 20, 2020 Results & Data Results & Data ([facility]) Vital Signs (Past 12 Hours) Vital Signs Temp Pulse Pulse Resp BP BP BP 01/22/20 10:37 80 110/84 01/22/20 08:11 111/72 01/22/20 07:36 36.6 C 89 18 99/61 L 01/22/20 07:00 96 H 01/22/20 04:00 36.9 C 78 18 133/81 01/21/20 23:46 36.5 C 84 20 142/80 H Pulse Ox 01/22/20 10:37 01/22/20 08:11 01/22/20 07:36 94 01/22/20 07:00 01/22/20 04:00 94 01/21/20 23:46 93 PG Care Time/CCT Total # of Minutes Spent Total Time Spent with Patient: Total time spent is greater than 50% in coordination of care (as documented) at patient's floor/unit and/or counseling patient: Coding
--- NOTE | 2020-01-22 11:58 | Cardiology Progress Note ---
Date of Service January 22, 2020 Assessment & Plan (1) Atrial fibrillation with RVR: She presented with atrial fibrillation and symptoms of palpitations but not lightheadedness or dizziness at that time. She has had intermittent palpitations over the last month but she describes these being brief, 10 to 15 seconds, so it is not clear if this represents prior atrial fibrillation. I suspect her memory is not very accurate however. In any case I would continue with rate control (she does have a labile blood pressure but she needs to be on something for rate control and she is tolerating metoprolol) and anticoagulation. Currently on Eliquis at the proper dose. I did increase her m etoprolol to 25 mg twice a day to help control heart rate, her heart rate may be a little bit fast in atrial fibrillation but she feels well and I would probably leave it at this dose. We can see her in the office rather than keep her here, I will arrange a follow- up visit for about 1 month. Admission and Anticipated Discharge Date Admission Date: January 20, 2020 Subjective She feels well, she is in atrial fibrillation but does not have an awareness of it. She went into atrial fibrillation last evening with a somewhat higher heart rate, overnight this morning her heart rate is adequately controlled. Physical Exam Physical Exam: Constitutional: Alert, cooperative and in no distress. HEENT: Unremarkable Neck: No jugular venous distention, carotid pulses are irregular but otherwise normal and equal bilaterally without bruits. Pulmonary: Clear to auscultation bilaterally. Cardiac: Irregular somewhat rapid rhythm with no murmur, gallop or rub. Abdomen: Soft, nontender with normal bowel sounds. Extremities: No edema. Distal pulses intact. Neurologic: No focal findings. Gait is steady. Skin: No rash, ecchymoses or petechiae. Results & Data ([facility]) Vital Signs (Past 12 Hours) Vital Signs Temp Pulse Pulse Resp BP BP BP 01/22/20 11:42 36.0 C L 85 18 116/84 01/22/20 10:37 80 110/84 01/22/20 08:11 111/72 01/22/20 07:36 36.6 C 89 18 99/61 L 01/22/20 07:00 96 H 01/22/20 04:00 36.9 C 78 18 133/81 Pulse Ox 01/22/20 11:42 96 01/22/20 10:37 01/22/20 08:11 01/22/20 07:36 94 01/22/20 07:00 01/22/20 04:00 94 Laboratory Results Comprehensive Metabolic Panel 01/22/20 Range/Units 06:57 Sodium 140 (136-145) mmol/L Potassium 4.2 (3.5-5.1) mmol/L Chloride 107 (98-107) mmol/L Carbon Dioxide 26 (21-32) mmol/L BUN 14 (7-18) mg/dl Creatinine 0.83 (0.6-1.2) mg/dl Glucose 89 (70-99) mg/dl Calcium 9.1 (8.5-10.1) mg/dl Intake and Output 01/21/20 01/22/20 01/22/20 22:59 06:59 14:59 Intake Total 200 / 840 Balance 200 / 840 Intake: Oral 200 / 840 Other: Weight 75 kg Diagnostic Findings Telemetry: Atrial fibrillation starting at 1934 last evening, rate around 120 bpm. Subsequently the rate dropped and overnight was acceptable and this morn ing after IV Lopressor the rate is 85 average. PG Care Time/CCT Total # of Minutes Spent Total Time Spent with Patient: Total time spent is greater than 50% in coordination of care (as documented) at patient's floor/unit and/or counseling patient: Coding Level of Care Code 51013 Subseq Hosp Care Lvl 2 Diagnoses Atrial fibrillation with RVR I48.91
--- NOTE | 2020-01-22 12:25 | Discharge Summary ---
Date of Service January 22, 2020 Admission HPI Per Admitting Provider This is a 74 yo female with PMHx of mild cognitive impairment, rosacea, who presents with acute onset of palpitations, with reports of lightheadedness intermittently over the past 6 months. She was having palpitations and had lightheadedness therefore went to her PCPs office this morning. There EKG was completed showing A. fib awith RVR in the 140s to 150s and was referred to the ER. Once here she was ordered to have IV diltiazem, however spontaneously converted prior to receiving any medication. At bedside the patient denies any palpitations, lightheadedness, dizziness. She was seen back in May by PCP where she wore a Holter monitor for 24 hours which did not result in any abnormal findings. She does not currently take any cardiac medications or has ever required seeing a pedodontist in the past. Patient walks approximately 1/2 miles per day but otherwise does not exercise routinely. She drinks 1 glass of wine daily, and quit smoking 30 years ago, where she smoked 1 pack/day x 20 years. Her , Xochilt, is present with her at bedside and helps support the history. Admission Exam Per Admitting Provider General: awake, alert, no apparent distress Head: Normocephalic, atraumatic ENT: PERRL, EOMI, no pharyngeal exudate, mucous membranes moist Chest: Clear to auscultation, on room air, no adventitious breath sounds Cardiac: Regular rate and rhythm, no murmur, no JVD, normal peripheral pulses, good capillary refill Abdominal: NABS x 4 quadrants, soft, nondistended, nontender to palpation, no rebound or guarding Extremities: Normal inspection, no peripheral edema or erythema, calfs nontender to palpation Psych: Normal mood and affect Neuro: AAO x 3, strength intact bilaterally and rated 5/5, no motor deficits, speech is clear, no peripheral sensory deficits Principal Diagnosis Afib with RVR Discharge Exam Constitutional WD/WN, vitals as above no acute distress Eyes PERRL, conjunctivae normal, anicteric sclerae ENMT external ear and nose normal, oropharynx normal Neck trachea midline, no thyromegaly Respiratory normal respiratory effort, lungs clear to auscultation Cardiovascular Rate/Rhythm: + irregularly irregular Heart Sounds: no murmur Vessels: no JVD Extremities: no edema Gastrointestinal (Abdomen) normal bowel sounds, soft, nontender, no hepatosplenomegaly Musculoskeletal no cyanosis or clubbing, extremities motor strength 5/5 Skin no rashes, warm and dry Neurologic patellar DTR's 2+ bilat, sensation intact and PERRL, EOMI, accommodation nl, no face palsy, no dysarthria Psychiatric A+Ox3, euthymic affect Lymphatic no cervical or axillary lymphadenopathy Discharge Data Allergies Allergy/AdvReac Type Severity Reaction Status Date / Time Cipro Allergy Unknown rash Verified 02/18/16 06:42 ciprofloxacin Allergy Unknown rash Verified 01/20/20 11:08 Consultations 01/20/20 11:22 ED Decision to Admit Stat 01/20/20 14:39 Consult Cardiology Routine Consult Case Management - Discharge Planning Routine Procedures Performed 01/19 ECHOCARDIOGRAM Hospital Course (1) Atrial fibrillation with RVR: Previous negative holter monitor, but given HPI on admission, likely occurring for at least past 3-6 months.. Presented with palpitations and found to be in afib with RVR, initially spontaneously converted back but then had paroxysms and was flipping between NSR/aflutter prior to discharge Cardiology consulted -- will have follow up in [address] Valadez Initiated on metoprolol tartrate 12.5mg BID and titrated up to 25mg BID and continued at discharge ECHO with LV systolic function normal, mod-severe mitral annular calcification, RV systolic pressure normal TSH wnl at 0.722 Given [id number] score 3, ASA discontinued and started and continued on Eliquis 5mg BID (2) Rosacea: noted, no issues (3) Mild cognitive impairment: Continued aricept, some difficulty recalling short term events at baseline. Spouse, Xochilt, helps to support history at bedside. (4) Osteoporosis: continued Fosamax, Vit D, calcium (5) Insomnia: stable, continued trazodone (6) DVT prophylaxis: Eliquis as above PT/OT with pt at baseline. Discharge home on metoprolol 25mg BID, Eliquis 5mg BID Total Time Total Time Spent Total Time Spent (In Minutes): 60 Discharge Plan Discharge Items Patient Disposition: Home - Self-Care Reason For Visit: AFIB WITH RVR Discharge Diagnosis: Atrial fibrillation with rapid ventricular response Condition on Discharge: Good Goals: You have been hospitalized for an acute medical problem. During your stay at [facility], we have made an effort to correct the problem that brought you to the hospital while keeping you as comfortable as possible. Medications were used to bring your condition under control and your discharge instructions will include directions for any medications you should take after leaving the hospital. Please make sure you see your Primary Care Provider as part of your follow up plan. Activity: Resume your previous activity Non-emergency contact: Primary Care Provider and Supervisor Customer Complaint Service Call non-emergency contact if: you have any medication questions and your symptoms worsen Follow-up/Referrals: Misbah Valadez MD [Physician] - (1 month- Dr. Valadez will arrange) Kristina Gil CRNP [Primary Care Provider] - 01/27/20 1:50 pm (You have a follow up appt with Kristina on MondayJan 26 at 1:50pm. It is important that you keep this appt. If this appt does not fit into your schedule please call [phone] to reschedule. ) Diet: Heart Healthy Addtl Attending Provider Instructions: You have been hospitalized and found to be in an irregular heart rhythm. You were treated with medication and converted back to a normal rhythm but you do have episodes continuing in afib. Given symptoms have resolved and you have not felt them overnight, it is felt safe to discharge on the following: * Metoprolol tartrate 25mg by mouth TWICE daily -- this will help with rate control as well as blood pressure * Eliquis 5mg by mouth TWICE daily -- this is to help anticoagulate and prevent blood clots, as you are at increased risk with flipping in and out of this rhythm. Please avoid any ibuprofen/motrin/NSAIDs while on Eliquis as this increases your risk of bleeding. You may utilize tylenol as needed for pain/aches/headaches. You should follow up with your primary care provider in the next week to monitor your progress. Of note, as discussed, please bring your home BP cuff to your next visit to see about the accuracy of your cuff as your blood pressures have been acceptable while inpatient. You will be set up with a follow up with Dr. Valadez (Cardiology) in the next month and they will call you with an appointment time. Please return to the emergency department with any worsening symptoms, shortness of breath, dizziness, or for any other symptoms that are concerning for you. It has been a pleasure being a part of the medical team providing for you while you have been in the hospital. Take care! 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 Anticoagulants will thin your blood to help prevent new clots. * You should take her medication exactly as directed. * Never skip a dose. * Never take a double dose. If you miss a dose, take it as soon as you remember. Call your Primary Care doctor if you experience any of the following: * Swelling or Pain in your leg * Sudden, continuous pain deep in a muscle * Pain that worsens when you are active or when you stand still for a long time * Chest Pain * Sudden Shortness of Breath * Rapid or pounding heart beat * Fainting * Dizziness * Cough with blood or bloody sputum * Sweating more than normal * Bruises * Heavy or uncontrolled bleeding * Blood in your urine, stool or vomit * Black or tarry stools Caring for Your Self at Home: * Avoid sitting, standing or lying down for long periods without moving your legs and feet * When traveling by car, stop to get out and move around at least once every 3 hours * On long airplane, train or bus rides, get up and move around when possible * If you can't get up, wiggle your toes and tighten your calves to keep your blood moving Follow Up: It is important for you to keep your follow up appointments with your medical provider. Pending Studies at Discharge: No Stand-Alone Forms: My [facility], Smoking Cessation Medications and DC Order Prescriptions: New metoprolol tartrate 25 mg Tablet 25 mg PO BID 30 Days Qty: 60 RF: 1 Eliquis 5 mg Tablet 5 mg PO BID 30 Days Qty: 60 RF: 1 Continued trazodone 50 mg tablet 50 mg PO HS Qty: 90 RF: 1 donepezil 10 mg tablet 10 mg PO QAM Qty: 90 RF: 1 cholecalciferol (vitamin D3) 5,000 unit tablet 5,000 unit PO QAM RF: 0 alendronate 70 mg tablet 70 mg PO WK RF: 0 multivitamin [Multiple Vitamins] tablet 1 tab PO QAM RF: 0 loperamide 2 mg Tablet 2 mg PO Q6H PRN (Reason: Diarrhea) RF: 0 calcium carbonate [Tums] 300 mg (750 mg) Tablet,Chewable 600 mg PO QAM RF: 0 Discontinued aspirin 81 mg Tablet,Delayed Release (Dr/Ec) 81 mg PO WK RF: 0 Discharge Orders: Discharge Order (Routine); Ordered 01/22/20 Ordered By: Ammy Swartz Admission Data Admit Date/Time: 01/20/20 11:29 Attending Provider: Cornell Arrieta Admit Provider: Anamaria Schaeffer Primary Care Provider: Kristina Gil Other Providers: Anamaria Schaeffer ; Misbah Valadez Other Interventions: Discharge Summary Assessment (RN) Last Done: 01/22/20 13:30 Coding Level of Care Code D/C Day Management >30 mins Diagnoses Atrial fibrillation with RVR I48.91 Rosacea L71.9 Mild cognitive impairment G31.84 Osteoporosis M81.0 Insomnia G47.00 DVT prophylaxis Z29.9
== END 2020-01-22 14:22 | disposition home or self-care (01) ==
LOC: 2N 09:38 → ED 09:38 → INTOOBSV 11:29 → SUATTDRO 11:57 → OBSVTOIN 11:57 → 2N 13:58
DX: Z79.899 Other long term (current) drug therapy; Z80.1 Family history of malignant neoplasm of trachea, bronchus and lung; G31.84 Mild cognitive impairment of uncertain or unknown etiology; Z88.1 Allergy status to other antibiotic agents; Z79.82 Long term (current) use of aspirin; I48.91 Unspecified atrial fibrillation; L71.9 Rosacea, unspecified; F43.21 Adjustment disorder with depressed mood; G47.00 Insomnia, unspecified; Z80.0 Family history of malignant neoplasm of digestive organs; M81.0 Age-related osteoporosis without current pathological fracture; Z87.891 Personal history of nicotine dependence

== ENCOUNTER 2020-02-08 21:39 | Inpatient (IN) ==
[2020-02-08] MEDS ORDERED: SODIUM CHLORIDE 0.9% 1000ML 1,000 ML IV STA (22:23)
[2020-02-08 22:53] LABS: Hematocrit (blood only) 44.1 % (37-47); Hemoglobin 15.3 g/dL (12.0-16.0); Mean Corpuscular Hemoglobin 33.4 pg (25-34); Mean Corpuscular Hgb Conc 34.7 g/dL (32-36); Mean Corpuscular Volume 96.3 fL (80-100); Mean Platelet Volume 11.8 fL (7.4-10.4); Platelet Count 240 K/uL (130-400); RDW Standard Deviation 45.4 fL (36.4-46.3); Red Blood Count 4.58 M/uL (4.2-5.4)
[2020-02-08 23:02] LABS: Alanine Aminotransferase 28 U/L (12-78); Albumin Level 3.6 gm/dl (3.4-5.0); Aspartate Aminotransferase 24 U/L (15-37); BUN Creatinine Ratio 17.4 (10-20); Blood Urea Nitrogen 17 mg/dl (7-18); Calcium 9.1 mg/dl (8.5-10.1); Carbon Dioxide 24 mmol/L (21-32); Chloride 109 mmol/L (98-107); Creatinine Clr Calc Pharmacy 52.2 ml/min; Est GFR (African American) 64.2; Est GFR (Non-African American) 55.4; Glucose 114 mg/dl (70-99); Magnesium 2.1 mg/dl (1.8-2.4); Potassium 3.7 mmol/L (3.5-5.1); Sodium 142 mmol/L (136-145)
[2020-02-08] MEDS ORDERED: SODIUM CHLORIDE 0.9% 1000ML 500 ML IV ONE (23:11)
[2020-02-08 23:13] LABS: Albumin Globulin Ratio 1.2 (0.9-2); Alkaline Phosphatase 51 U/L (45-117); Bilirubin,Total 0.4 mg/dl (0.2-1); Globulin 2.9 gm/dl (2.5-4.0); Total Protein 6.5 gm/dl (6.4-8.2); Troponin I < 0.015 ng/ml (0-0.045)
[2020-02-08 23:33] LABS: ALC (manual) 5.32 K/uL (1.2-3.4); ANC (manual) 3.09 K/uL (1.4-6.5); Basophils # (manual) 0.08 K/uL (0-0.2); Basophils % (manual) 0.9 %; Eosinophils # (manual) 0.24 K/uL (0-0.5); Eosinophils % (manual) 2.6 %; Large Granular Lymph # (manua 2.54 K/uL; Lymphocytes # (manual) 2.78 K/uL (1.2-3.4); Lymphocytes % (manual) 29.6 %; Monocytes # (manual) 0.66 K/uL (0.11-0.59); Neutrophils # (manual) 3.09 K/uL (1.4-6.5); Neutrophils % (manual) 32.9 %; RBC Morphology Unremarkable
--- NOTE | 2020-02-09 00:29 | Emergency Department Note ---
Impression & Plan Syncope and collapse, Bradycardia ED Provider Note INFORMANT: Patient ED PROVIDER(S): Dixon Merritt MD CHIEF COMPLAINT: Syncope PLAN: Disposition: Admitted Condition: Good MEDICAL DECISION MAKING: Patient is a 75-year-old female that had an abrupt onset of syncope this evening. She was seated. She had no prodrome. Prehospital ECG did reveal bradycardia with a rate in the 50s. There is no ischemia. Repeat ECG here reveals sinus bradycardia at 50 bpm. The patient was monitored. Her heart rate stayed in the mid 50s to low 60s. She had some mildly low blood pressures but was not symptomatic with this. Her blood work was unremarkable. She was hydrated. Given the abrupt onset and recent issues with rapid atrial fibrillation I discussed further management in the hospital. The patient feels very comfortable with the plan. Consultation was made with Dr[facility]. The patient was evaluated and admitted for further management. Triage Nursing notes reviewed and agree them. Additional history obtained from patient's partner Prior medical records reviewed regarding prior ER visit for rapid atrial fibrillation. Vital Signs: reviewed and remarkable for mildly low blood pressure and bradycardia Differential diagnosis: Vasovagal event, dehydration, infection, hypoglycemia, electrolyte abnormalities, cardiac sources, intracerebral event, pulmonary embolism, seizure, toxicologic, neurologic, as well as other pathologies. Diagnostics interpreted by me: ECG: Twelve-lead ECG was performed and reveals sinus bradycardia at 50 bpm. There is no ST elevation or depression. Normal axis and QRS. No PVCs or PACs. Cardiac Monitoring: .Cardiac monitoring ordered by me: The patient was placed on continuous cardiac monitoring and observed. It revealed a normal sinus rhythm at 60 beats per minute without ectopy or evidence of dysrhythmia. Imaging studies: Deferred Consultation(s): Dr. Varun Raygoza, [facility] service HPI: The patient is a 75 year old female who presents to the Emergency Room with complaints of syncope. This started suddenly this evening while sitting down and is resolved. It lasted about 30 seconds. There was no prodrome. The patient also notes the following associated symptoms, some nausea earlier today. The patient has taken no medication for relieving factors. Current pain is rated as 0/10. Patient was recently admitted to the hospital for new onset atrial fibrillation. She was prescribed metoprolol and Eliquis. Her PCP just recently decreased her metoprolol to 25 mg in the morning and 12.5 mg in the evening. Pt denies headache, fevers, chills, diaphoresis, visual changes, neck pain, chest pain, breathing difficulties, vomiting, abdominal pain, back pain, melena, hematochezia, urinary symptoms, numbness, weakness, lymphadenopathy, rash, or other complaints. ROS: See above HPI for pertinent positives & negatives. A total of 10 systems reviewed and were otherwise negative. PAST MEDICAL HISTORY:See Below, anticoagulated, A. fib PAST SURGICAL HISTORY:See Below, FAMILY HISTORY:See Below SOCIAL HISTORY:See Below, retired HOME MEDICATIONS:See Below ALLERGIES:See Below VITALS:See Below PHYSICAL EXAMINATION: GENERAL: Awake, alert, well-appearing, in no distress HENT: Normocephalic, atraumatic. Oropharynx unremarkable. EYES: Normal conjunctiva. Sclera non-icteric. NECK: Inspection normal. Non-tender. Supple. No nuchal rigidity. FROM. No masses. RESPIRATORY: Clear to auscultation. No wheezes. No rales. Normal respiratory effort. CARDIAC: Normal rate. Normal rhythm. No murmurs. No rubs. Extremities warm and well perfused. Pulses equal. No JVD. GI: Soft, non-distended. No tenderness to palpation. No rebound or guarding. No masses. RECTAL: Deferred. MUSCULOSKELETAL: Atraumatic. Chest examination reveals no tenderness. The back is symmetrical on inspection without obvious abnormality. There is no CVA t enderness to palpation. No joint edema. LOWER EXTREMITIES: Calves are equal size bilaterally and non-tender. No edema. No discoloration. NEURO: Normal sensorium. No sensory or motor deficits noted. SKIN: No rash or jaundice noted. Dixon Merritt MD Past Med/Surg History Medical History (Updated 02/09/20 @ 00:24 by Dixon Merritt MD) Adjustment disorder with depressed mood Eustachian tube dysfunction FH: cholecystectomy Mild cognitive impairment Osteoporosis Rosacea Surgical History S/P abdominal hysterectomy S/P cholecystectomy S/P total knee arthroplasty bilateral, 2009 and 2004 Family History Mother Colon cancer Cancer Father Colon cancer Lung cancer Cancer Social History Smoking Status: Former smoker Tobacco Type: Cigarettes Age Quit Using Tobacco: 44; Cigarettes Per Day: 20; Hx Alcohol Use: Yes Alcohol type: wine Hx Substance Use: No Preferred Language: Lebanese Communication Ability: Effective 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 Beliefs That Will Affect Care: None marital status: Current Living Situation: Spouse Feels Safe at Home: Yes Assistive Devices: Glasses Allergies Allergies Allergy/AdvReac Type Severity Reaction Status Date / Time ciprofloxacin Allergy Unknown rash Verified 02/08/20 23:22 Home Meds Home Medications Medication Instructions Recorded Confirmed alendronate 70 mg tablet 70 mg PO WK tab 01/09/19 02/08/20 multivitamin 1 tab PO QAM 01/09/19 02/08/20 loperamide 2 mg PO Q6H PRN 01/20/20 02/08/20 calcium carbonate-vitamin D3 1 tab PO QAM 02/08/20 02/08/20 [Calcium 600 + D(3)] metoprolol tartrate See Rx Instructions .ROUTE .COMPLEX 02/08/20 02/08/20 omega 7-ezd-gpy-fish oil [Fish Oil] 2 cap PO QAM 02/08/20 02/08/20 Previous Rx's Medication Instructions Recorded donepezil 10 mg tablet 10 mg PO QAM #90 tab 01/15/20 trazodone 50 mg tablet 50 mg PO HS #90 tab 01/15/20 apixaban [Eliquis] 5 mg PO BID 30 Days #60 tab 01/22/20 Results & Data (ED) Vital Signs Vital Signs - 24 hr 02/08/20 21:46 02/08/20 21:50 02/08/20 22:00 Temperature 36.4 C L Temperature Source Oral Pulse Rate - Lying Pulse Rate - Sitting Pulse Rate - Standing Pulse Rate 54 L 52 L 60 Pulse Rate [Right Finger] Pulse Rate from SpO2 Sensor 56 L 53 L 60 Pulse Rhythm Regular Pulse Rhythm [Right Finger] Pulse Strength Normal Pulse Strength [Right Finger] Respiratory Rate 19 20 20 Respiratory Effort / Characteristics Non-Labored Spontaneous Respiratory Depth Normal Respiratory Pattern Regular Blood Pressure - Lying Blood Pressure - Sitting Blood Pressure- Standing Blood Pressure 121/62 121/62 110/58 L Blood Pressure [Right Arm] Blood Pressure Mean 90 81 74 Blood Pressure Mean [Right Arm] Blood Pressure Position Sitting Pulse Oximetry 95 93 95 Oxygen Delivery Method Room Air Sepsis Recent Fever Within 48 Hours No Sepsis New/Unexplained Change in Mental Status No Sepsis Action Taken by Nursing No Action Required 02/08/20 22:10 02/08/20 22:20 02/08/20 22:30 Temperature Temperature Source Pulse Rate - Lying Pulse Rate - Sitting Pulse Rate - Standing Pulse Rate 57 L 63 67 Pulse Rate [Right Finger] Pulse Rate from SpO2 Sensor 58 L 63 66 Pulse Rhythm Pulse Rhythm [Right Finger] Pulse Strength Pulse Strength [Right Finger] Respiratory Rate 20 17 19 Respiratory Effort / Characteristics Respiratory Depth Respiratory Pattern Blood Pressure - Lying Blood Pressure - Sitting Blood Pressure- Standing Blood Pressure 92/56 L Blood Pressure [Right Arm] Blood Pressure Mean 78 Blood Pressure Mean [Right Arm] Blood Pressure Position Pulse Oximetry 94 94 95 Oxygen Delivery Method Sepsis Recent Fever Within 48 Hours Sepsis New/Unexplained Change in Mental Status Sepsis Action Taken by Nursing 02/08/20 22:34 02/08/20 22:42 02/08/20 22:43 Temperature Temperature Source Pulse Rate - Lying 64 Pulse Rate - Sitting 65 Pulse Rate - Standing Pulse Rate Pulse Rate [Right Finger] Pulse Rate from SpO2 Sensor Pulse Rhythm Pulse Rhythm [Right Finger] Pulse Strength Pulse Strength [Right Finger] Respiratory Rate Respiratory Effort / Characteristics Respiratory Depth Respiratory Pattern Blood Pressure - Lying 102/54 L Blood Pressure - Sitting 111/60 Blood Pressure- Standing Blood Pressure Blood Pressure [Right Arm] Blood Pressure Mean Blood Pressure Mean [Right Arm] Blood Pressure Position Pulse Oximetry 94 Oxygen Delivery Method Room Air Sepsis Recent Fever Within 48 Hours Sepsis New/Unexplained Change in Mental Status Sepsis Action Taken by Nursing 02/08/20 22:47 02/08/20 23:00 02/08/20 23:27 Temperature Temperature Source Pulse Rate - Lying Pulse Rate - Sitting Pulse Rate - Standing 67 Pulse Rate 58 L Pulse Rate [Right Finger] 65 Pulse Rate from SpO2 Sensor Pulse Rhythm Pulse Rhythm [Right Finger] Regular Pulse Strength Pulse Strength [Right Finger] Normal Respiratory Rate 22 20 Respiratory Effort / Characteristics Non-Labored Spontaneous Respiratory Depth Normal Respiratory Pattern Blood Pressure - Lying Blood Pressure - Sitting Blood Pressure- Standing 124/64 Blood Pressure 107/58 L Blood Pressure [Right Arm] 107/58 L Blood Pressure Mean 74 Blood Pressure Mean [Right Arm] 74 Blood Pressure Position Pulse Oximetry 97 97 Oxygen Delivery Method Room Air Room Air Sepsis Recent Fever Within 48 Hours Sepsis New/Unexplained Change in Mental Status Sepsis Action Taken by Nursing Laboratory Data Result diagrams: 02/08/20 21:20 02/08/20 21:20 Lab Results 02/08/20 02/08/20 Range/Units 21:20 21:20 WBC 9.40 (4.8-10.8) K/uL RBC 4.58 (4.2-5.4) M/uL Hgb 15.3 (12.0-16.0) g/dL Hct 44.1 (37-47) % MCV 96.3 (80-100) fL MCH 33.4 (25-34) pg MCHC 34.7 (32-36) g/dL RDW Std Deviation 45.4 (36.4-46.3) fL RDW Coeff of Dave 13.0 (11.5-14.5) % Plt Count 240 (130-400) K/uL MPV 11.8 H (7.4-10.4) fL Neutrophils % (Manual) 32.9 % Lymphocytes % (Manual) 29.6 % Monocytes % (Manual) 7.0 % Eosinophils % (Manual) 2.6 % Basophils % (Manual) 0.9 % Neutrophils # (Manual) 3.09 (1.4-6.5) K/uL Total Absolute Neuts 3.09 (1.4-6.5) K/uL Lymphocytes # (Manual) 2.78 (1.2-3.4) K/uL Total Abs Lymphocytes 5.32 H (1.2-3.4) K/uL Monocytes # (Manual) 0.66 H (0.11-0.59) K/uL Eosinophils # (Manual) 0.24 (0-0.5) K/uL Basophils # (Manual) 0.08 (0-0.2) K/uL Large Granular Lymphs 27.0 % # Lrg Granular Lymphs 2.54 K/uL RBC Morphology Unremarkable Sodium 142 (136-145) mmol/L Potassium 3.7 (3.5-5.1) mmol/L Chloride 109 H (98-107) mmol/L Carbon Dioxide 24 (21-32) mmol/L Anion Gap 9.0 (3-11) BUN 17 (7-18) mg/dl Creatinine 0.99 (0.6-1.2) mg/dl Est Cr Clr Drug Dosing 52.2 ml/min Est GFR ( Amer) 64.2 Est GFR (Non-Af Amer) 55.4 BUN/Creatinine Ratio 17.4 (10-20) Glucose 114 H (70-99) mg/dl Calcium 9.1 (8.5-10.1) mg/dl Magnesium 2.1 (1.8-2.4) mg/dl Total Bilirubin 0.4 (0.2-1) mg/dl AST 24 (15-37) U/L ALT 28 (12-78) U/L Alkaline Phosphatase 51 (45-117) U/L Troponin I < 0.015 (0-0.045) ng/ml Total Protein 6.5 (6.4-8.2) gm/dl Albumin 3.6 (3.4-5.0) gm/dl Globulin 2.9 (2.5-4.0) gm/dl Albumin/Globulin Ratio 1.2 (0.9-2) TSH 2.550 (0.300-4.500) uIu/ml Administered Medications Sodium Chloride (Nss 1000ml) 1,000 mls @ 125 mls/hr IV .Q8H STA Stop: 02/09/20 06:22 Last Admin: 02/08/20 22:49 Dose: 125 mls/hr Documented by: [id number] Discontinued Medications Sodium Chloride (Nss 1000ml) 500 mls @ 999 mls/hr IV .Q31M ONE Stop: 02/08/20 23:41 Last Infusion: 02/09/20 00:04 Dose: 0 mls/hr Documented by: [id number] Admin: 02/08/20 23:30 Dose: 999 mls/hr Documented by: [id number] Discharge Plan Visit Data Chief Complaint: Cardiac Assessment Stated Complaint: CARDIAC ASSESSENT ED Provider: Dixon Merritt Discharge Problem: Syncope and collapse, Bradycardia Forms Stand Alone Forms: My [employer] Prescriptions Prescriptions: No Action trazodone 50 mg tablet 50 mg PO HS Qty: 90 RF: 1 donepezil 10 mg tablet 10 mg PO QAM Qty: 90 RF: 1 alendronate 70 mg tablet 70 mg PO WK RF: 0 multivitamin [Multiple Vitamins] tablet 1 tab PO QAM RF: 0 calcium carbonate-vitamin D3 [Calcium 600 + D(3)] 600 mg(1,500mg) -400 unit Tablet 1 tab PO QAM RF: 0 omega 5-ego-hgl-fish oil [Fish Oil] 1,200 (144-216) mg Capsule 2 cap PO QAM RF: 0 metoprolol tartrate 25 mg tablet See Rx Instructions .ROUTE .COMPLEX RF: 0 loperamide 2 mg Tablet 2 mg PO Q6H PRN (Reason: Diarrhea) RF: 0 Eliquis 5 mg Tablet 5 mg PO BID 30 Days Qty: 60 RF: 1
--- NOTE | 2020-02-09 00:32 | History & Physical Report ---
Date of Service February 09, 2020 Assessment & Plan (1) Bradycardia: Charleen Krishnamurthy 75 year old woman with history of a fib rvr on eliquis and beta dawit presents for syncopal episode Syncopal episode. Possibly secondary to bradycardia, patient has been bradycardic consistently over the last few weeks likely exacerbated by her new metoprolol Also on the differential is falling asleep from sleep deprivation as she hadn't slept the night before, seizure, tachyarrhythmia Patients consistent bradyacardia and lightheadedness concerning for sinus node dysfunction ECG showing normal intervals just a sinus bhargav Will hold beta dawit, as well as trazodone which can slow heart rate and drop blood pressure expecially orthostatically.but if having true sinus node dysfunction may need pacemaker to imrpove symptoms cardiology Dr. Mix consulted Will supplement postassaium with oral KCl with goal >4. Atrial Fibrillation IN normal sinus now Will continue eliquis, and d/c metoprolol On monitored floor Mild cognitive impairment Continuing donepezil DVT PPx: Continuing home eliquis F/E?N: heart healthy diet encouraging good PO intake DispoL admit to telemetry for further monitoring and cardiology evaluation. Full Code (2) Syncope and collapse: (3) Osteoporosis: (4) Atrial fibrillation with RVR: (5) Insomnia: (6) Mild cognitive impairment: History of Present Illness Chief Complaint: Syncope, bradycardia Primary Care Provider: EMILEE Fermin Charleen Krishnamurthy is a 75 year old woman with a past medical history significant for recently diagnosed atrial fibrillation. She was hospitalized last month with a fib and RVR and was started on anticoagulation with eliquis and metoprolol 25 mg BID. Patient was sitting playing scrabble today with her partner when she became "dizzy" lightheaded and felt slightly nauseous when her partner noticed that she was snoring. She woke her up and she was back to her normal self within a few s econds but did have cold extremities per her partner. She has been well recently, no recent fevers, chills, sweats, no previous syncope, no palpitations, no chest pain, no shortness of breath, no cough, no N/V/D/c. She does tell me she regularly feels lightheaded while changing positions, particularly while getting up from sitting or from leaning over to tie her shoes but has not fainted before. She says this has been happening lately but also did occur prior to starting her metoprolol. She does check her blood pressure and heart rate at home and has been averaging 90's-100's/50's-60's and pulse rate has been in the 50's consistently. Has not had any further tachycardia that she is aware of. On presentation to ED patient is feeling back to her usual state of health but she is hypotensive and bradycardic to what sounds like her baseline 107/58 and pulse rate of 58. Per EMS patient was in 40's HR on the drive over. Patient was given 1.5 L nss in ED and was seen by me with her partner present. She has a remote smoking history 30+ years ago, drinks one glass of wine per day, and does not use any drugs. She lives at home with partner Xochilt here in [place]. FUll Code Allergies Allergy/AdvReac Type Severity Reaction Status Date / Time ciprofloxacin Allergy Unknown rash Verified 02/08/20 23:22 Home Medications Home Medications Medication Instructions Recorded Confirmed Type alendronate 70 mg tablet 70 mg PO WK tab 01/09/19 02/08/20 History multivitamin 1 tab PO QAM 01/09/19 02/08/20 History donepezil 10 mg tablet 10 mg PO QAM #90 tab 01/15/20 02/08/20 Rx trazodone 50 mg tablet 50 mg PO HS #90 tab 01/15/20 02/08/20 Rx loperamide 2 mg PO Q6H PRN 01/20/20 02/08/20 History apixaban [Eliquis] 5 mg PO BID 30 Days #60 tab 01/22/20 02/08/20 Rx calcium carbonate-vitamin D3 1 tab PO QAM 02/08/20 02/08/20 History [Calcium 600 + D(3)] metoprolol tartrate See Rx Instructions .ROUTE .COMPLEX 02/08/20 02/08/20 History omega 0-bro-pbz-fish oil [Fish Oil] 2 cap PO QAM 02/08/20 02/08/20 History Past Med/Surg History Medical History (Updated 02/09/20 @ 00:24 by Dixon Merritt MD) Adjustment disorder with depressed mood Eustachian tube dysfunction FH: cholecystectomy Mild cognitive impairment Osteoporosis Rosacea Surgical History S/P abdominal hysterectomy S/P cholecystectomy S/P total knee arthroplasty bilateral, 2009 and 2004 Family History Mother Colon cancer Cancer Father Colon cancer Lung cancer Cancer Social History Smoking Status: Unknown if ever smoked Tobacco Type: Cigarettes Age Quit Using Tobacco: 44; Cigarettes Per Day: 20; Hx Alcohol Use: No Hx Substance Use: No Preferred Language: Ethiopian Communication Ability: Effective Warp Picker Required: No Beliefs That Will Affect Care: None marital status: Current Living Situation: Spouse Feels Safe at Home: Yes Safety Concerns: Feels Safe At This Time Assistive Devices: Glasses Review of Systems Review of Systems: All systems reviewed & are unremarkable except as noted in HPI & below Physical Exam Physical Exam: Constitutional: Well appearing 75 year old woman appearing stated age in no distress resting comfortably in bed Eyes: PERRLA EOMMI bilaterally ENMT: NAD Neck: No JVD, no abnormalities detected REspiratory: No increased work of breathing, lung sounds vesicular in all lung reyes Cardiovascular: S1 S2 normal, bradycardic, regular rhythm, no m/r/s/g, peripheral pulses intact globally GI: Abdomen soft non tender no masses Neuro: CN II-Xii intact, muscle strength equal in all extremities, reflexes equal and normal bilaterally Results & Data Results & Data ([facility]) Vital Signs (Past 12 Hours) Vital Signs Temp Pulse Pulse Resp BP BP Pulse Ox 02/08/20 23:27 58 L 20 107/58 L 97 02/08/20 23:00 65 22 107/58 L 97 02/08/20 22:34 94 02/08/20 22:30 67 19 92/56 L 95 02/08/20 22:20 63 17 94 02/08/20 22:10 57 L 20 94 02/08/20 22:00 60 20 110/58 L 95 02/08/20 21:50 36.4 C L 52 L 20 121/62 93 02/08/20 21:46 54 L 19 121/62 95 Code Status & VTE Plan VTE Prophylaxis Plan VTE Prophylaxis will be ordered: Yes Supervising Physician Co-Signing Physician Notes Attending addendum: I have physically seen this patient, have supervised the medical residents activities, and agree with the H&P unless as otherwise noted. Assessment and Plan: Syncope with collapse- Most likely secondary to arrhythmia Will also hold trazodone as a potential aggravating factor Tachybradycardia syndrome/atrial fibrillation/bradycardia- The patient will be admitted to telemetry for serial cardiac enzymes, serial EKG's, cardiac rhythm monitoring and a 2-D echocardiogram with Dopplers. Hold metoprolol tartrate. Continue to continue Eliquis for now, if plans for pacer, will need to be converted to IV heparin. Consult cardiology Continue remaining orders as noted. Resident Activity Tracking Resident Involvement: Resident Care Provided Care Provided: Adult Hospital Medicine
[2020-02-09] MEDS ORDERED: ONDANSETRON INJ 2 MG/ML 2 ML VIAL IV PRN (03:07)
[2020-02-09] MEDS ORDERED: POLYETHYLENE (MIRALAX) 17 GM PACK PO PRN (03:07)
[2020-02-09] MEDS ORDERED: ACETAMINOPHEN 325 MG TAB PO PRN (03:07)
[2020-02-09] MEDS ORDERED: LOPERAMIDE HCL 2 MG CAP PO PRN (03:07)
[2020-02-09] MEDS: POTASSIUM CHLORIDE CRTAB 20 MEQ TABCR PO SCH ×3 (03:59→19:46)
[2020-02-09] MEDS: APIXABAN 5 MG TABLET PO SCH ×2 (08:25→19:45)
[2020-02-09] MEDS: CALCIUM 600MG + VIT D 400 IU TAB PO SCH (08:25)
[2020-02-09] MEDS: DONEPEZIL HCL 10 MG TAB PO SCH (08:25)
[2020-02-09] MEDS: MULTIVITAMIN TAB PO SCH (08:25)
[2020-02-09] MEDS: OMEGA-3 (PURIFIED FISH OIL) 1 GM CAP PO SCH (09:03)
[2020-02-09] MEDS ORDERED: METOPROLOL TARTRATE 25 MG TAB PO ONE (11:30)
--- NOTE | 2020-02-09 11:33 | Cardiology Progress Note ---
Date of Service February 09, 2020 Assessment & Plan (1) Syncope and collapse: -she is bradycardic on her recently initiated metoprolol tartrate 25 mg b.i.d.. -will decrease dose of metoprolol and observe on telemetry. -if no dysrhythmia identified, could consider a 30 day event monitor versus a loop recorder. (2) Bradycardia: -as above, reduce metoprolol dose. (3) Atrial fibrillation with RVR: -continue Eliquis at 5 mg b.i.d.. -metoprolol as above. Admission and Anticipated Discharge Date Admission Date: February 09, 2020 Subjective The patient is resting comfortably in bed without complaints. Details of her syncopal event reviewed with her life partner who is at the bedside. The patient complained of being exhausted needing to go to bed. Her head then slumped to her chest and she began snoring. Her partner went over to assist the patient and she awoke abruptly in simply stared into the distance. This episode lasted for 30-40 seconds. Physical Exam Physical Exam: In general this is a well-developed well-nourished white female in no acute distress. HEENT exam is negative. Neck is supple with full carotid upstrokes. There are no carotid bruits. Jugular venous pressure is flat at 90. There is no thyromegaly. Cardiovascular exam reveals a regular rhythm with a normal S1 and S2. No S3, S4, or murmurs are noted. Lungs are clear without rales, rhonchi, or wheezes. Abdomen is soft and nontender without bruits. Extremities reveal intact radial artery and posterior tibial pulses bilaterally. There is no peripheral edema. Results & Data ([facility] [place]) Vital Signs (Past 12 Hours) Vital Signs Temp Pulse Pulse Pulse Resp BP BP 02/09/20 08:00 36.6 C 72 20 120/51 L 02/09/20 06:38 36.9 C 65 16 115/51 L 02/09/20 02:54 61 18 02/09/20 02:41 67 18 02/09/20 01:00 67 20 02/08/20 23:27 58 L 20 107/58 L BP Pulse Ox 02/09/20 08:00 97 02/09/20 06:38 95 02/09/20 02:54 112/69 96 02/09/20 02:41 122/63 98 02/09/20 01:00 107/64 98 02/08/20 23:27 97 Laboratory Results CBC notes hemoglobin 15.3, hematocrit 44.1, white count 9.4, platelet count [id number]. Electrolytes noted sodium of 142, potassium 3.7, chloride 109, bicarb 24, BUN 17, creatinine 0.99, and glucose of 114. Troponin I levels undetectable less than 0.015. TSH is normal at 2.55. Diagnostic Findings EKG notes sinus bradycardia and a left atrial abnormality. Echocardiogram performed on January 19 noted normal systolic function with ejection fraction 55-60%. There is no valvular pathology. desk monitor notes sinus bradycardia. PG Care Time/CCT Total # of Minutes Spent Total Time Spent with Patient: Total time spent is greater than 50% in coordination of care (as documented) at patient's floor/unit and/or counseling patient: Coding Level of Care Code 47151 Subseq Hosp Care Lvl 3 Diagnoses Syncope and collapse R55 Bradycardia R00.1 Atrial fibrillation with RVR I48.91
--- NOTE | 2020-02-09 12:22 | Electrocardiogram Report ---
Test Reason : Blood Pressure : / mmHG Vent. Rate : 050 BPM Atrial Rate : 050 BPM P-R Int : 158 ms QRS Dur : 112 ms QT Int : 430 ms P-R-T Axes : 069 038 050 degrees QTc Int : 392 ms Sinus bradycardia Possible Left atrial enlargement Borderline ECG When compared with ECG of 20-JAN-2020 10:47, Vent. rate has decreased BY 32 BPM Confirmed by Cristino Mix ([id number]) on 02/09/2020 12:22:23 PM Referred By: REFERRED SELF Confirmed By:Cristino Mix
--- NOTE | 2020-02-09 19:15 | Hospitalist Progress Note ---
Date of Service February 09, 2020 Assessment & Plan (1) Bradycardia: Charleen Krishnamurthy 75 year old woman with history of a fib rvr on eliquis and beta dawit presents for possible syncopal episode Syncopal episode -Possibly secondary to bradycardia, patient has been bradycardic consistently over the last few weeks likely exacerbated by her new metoprolol -Also on the differential is falling asleep from sleep deprivation as she hadn't slept the night before, seizure, tachyarrhythmia -Patients consistent bradycardia and lightheadedness concerning for sinus node dysfunction -Will supplement potassium with oral KCl with goal >4; repeat BMP tomorrow morning. -cardiology Dr. Mix consulted; if no recurrent bradycardic episodes or dysrhythmia identified, plan for d/c home tomorrow with event monitor vs. loop recorder -will continue to follow with cardiology; appreciate their recommendations Atrial Fibrillation -In normal sinus now -Will continue eliquis -Per cardiology, pt had tachy-bhargav episode; restarted metoprolol (receiving 12.5mg po BID) at reduced dose -On monitored floor Mild cognitive impairment -Continuing donepezil DVT PPx: Continuing home eliquis F/E?N: heart healthy diet encouraging good PO intake Dispo: telemetry further monitoring and cardiology evaluation. Code status: Full Code (2) Syncope and collapse: (3) Osteoporosis: (4) Atrial fibrillation with RVR: (5) Insomnia: (6) Mild cognitive impairment: Admission and Anticipated Discharge Date Admission Date: February 09, 2020 Supervising Physician Co-Signing Physician Notes Patient seen and examined with PGY-1 Dr. Casarez. Agree with history, exam findings, assessment and plan of care as outlined. In brief, Ms Krishnamurthy is a 75 year old female with history of afib and mild cognitive impairment admitted following a syncopal episode. PCP: Kristina José with [facility]. Today, she is doing well. Did have some episodes of tachycardia where she experienced the sensation of palpitations. Does have some dizziness with positional changes. Denies chest pain, dyspnea. Has not had any further syncopal events. VS, labs, imaging and nursing notes reviewed. Well appearing. Sinus rhythm on the telemonitor. Heart with regular rate and rhythm. No peripheral edema. Lungs are clear to auscultation throughout with good air movement. 1. Syncope. Initially held metoprolol dose, but this was re-initiated after her episodes of tachycardia at metoprolol 12.5mg. Will continue to monitor on tele. If she has more episodes of tachycardia-bradycardia, may consider pacer. However, if she does not, ok to discharge home with event monitor vs loop recorder. Appreciate cardiology recommendations. 2. Afib. NSR. Anticoagulated with Eliquis. 3. Mild cognitive impairment: continue home donepezil. Dispo: possible discharge tomorrow. Subjective The patient was seen this evening with her partner, Xochilt, at bedside. Patient is doing well. She is eating dinner without difficulty, nausea, or vomiting. Patient has no complaints of chest pain, SOB, fever, chills, abdominal pain, leg pain, or leg swelling at this time. Review of Systems Constitutional: no fever and no chills Respiratory: no cough and no dyspnea Cardiovascular: no chest pain and no palpitations Gastrointestinal: no abdominal pain, no nausea and no vomiting Musculoskeletal: no swelling Physical Exam Physical Exam: GENERAL: No acute distress. Well developed and well nourished. Vital signs reviewed as above. A/O x3. EYES: EOMI. HENT: Moist mucous membranes. RESPIRATORY: Clear to auscultation bilaterally. No wheezing, rales, or rhonchi. CARDIOVASCULAR: Regular rate and rhythm. 2/6 MARIO. ABDOMEN: Soft, non-tender and non-distended. No palpable masses. Normal bowel sounds. EXTREMITIES: No edema. Non-tender. SKIN: Warm, dry. NEUROLOGIC: No focal neurological deficits. Pt is intermittently confused and looks towards partner for some answers. PSYCHIATRIC: Cooperative. Appropriate mood and affect. Results & Data Results & Data ([facility]) Vital Signs (Past 12 Hours) Vital Signs Temp Pulse Resp BP Pulse Ox 02/09/20 12:00 36.8 C 65 18 138/70 96 02/09/20 08:00 36.6 C 72 20 120/51 L 97
[2020-02-09] MEDS: METOPROLOL TARTRATE 25 MG TAB PO SCH (19:46)
--- NOTE | 2020-02-09 22:53 | Billing Data ---
Date of Service February 09, 2020 Coding Level of Care Code 30597 OBS Care - Level 3
[2020-02-10 04:37] LABS: Basophils # (auto) 0.04 K/uL (0-0.2); Basophils % (auto) 0.9 %; Eosinophils # (auto) 0.09 K/uL (0-0.5); Hematocrit (blood only) 45.7 % (37-47); Hemoglobin 15.5 g/dL (12.0-16.0); Immature Granulocytes # (auto) 0.01 K/uL (0.00-0.02); Immature Granulocytes % (auto) 0.2 %; Lymphocytes # (auto) 2.18 K/uL (1.2-3.4); Lymphocytes % (auto) 49.5 %; Mean Corpuscular Hemoglobin 32.9 pg (25-34); Mean Corpuscular Hgb Conc 33.9 g/dL (32-36); Mean Platelet Volume 10.7 fL (7.4-10.4); Monocytes # (auto) 0.28 K/uL (0.11-0.59); Monocytes % (auto) 6.4 %; Platelet Count 172 K/uL (130-400); RDW Coefficient of Variation 13.1 % (11.5-14.5); RDW Standard Deviation 46.6 fL (36.4-46.3); Red Blood Count 4.71 M/uL (4.2-5.4)
[2020-02-10 05:14] LABS: BUN Creatinine Ratio 13.9 (10-20); Creatinine Clr Calc Pharmacy 73.2 ml/min; Est GFR (Non-African American) 84.6; Potassium 3.8 mmol/L (3.5-5.1)
[2020-02-10] MEDS: APIXABAN 5 MG TABLET PO SCH ×2 (08:48→20:45)
[2020-02-10] MEDS: DONEPEZIL HCL 10 MG TAB PO SCH (08:48)
[2020-02-10] MEDS: CALCIUM 600MG + VIT D 400 IU TAB PO SCH (08:48)
[2020-02-10] MEDS: MULTIVITAMIN TAB PO SCH (08:48)
[2020-02-10] MEDS: METOPROLOL TARTRATE 25 MG TAB PO SCH ×2 (08:49→20:45)
[2020-02-10] MEDS: OMEGA-3 (PURIFIED FISH OIL) 1 GM CAP PO SCH (08:50)
[2020-02-10] MEDS: POTASSIUM CHLORIDE CRTAB 20 MEQ TABCR PO SCH ×2 (08:50→20:44)
[2020-02-10] MEDS ORDERED: METOPROLOL TARTRATE 25 MG TAB PO STA (11:06)
--- NOTE | 2020-02-10 13:39 | Cardiology Progress Note ---
Date of Service February 10, 2020 Assessment & Plan (1) Syncope and collapse: -no bhargav dysrhythmia identified thus far. -will increase dose of metoprolol due to her rapid atrial fibrillation. -continue to observe on telemetry. -could consider a 30 day event monitor versus a loop recorder. (2) Bradycardia: -as above, increase metoprolol dose. (3) Atrial fibrillation with RVR: -continue Eliquis at 5 mg b.i.d.. -metoprolol as above. Admission and Anticipated Discharge Date Admission Date: February 09, 2020 Subjective Ms. Krishnamurthy is resting comfortably in bed but is noticing palpitations and dizziness. Physical Exam Physical Exam: In general this is a well-developed well-nourished white female in no acute distress. HEENT exam is negative. Neck is supple with full carotid upstrokes. There are no carotid bruits. Jugular venous pressure is flat at 90. There is no thyromegaly. Cardiovascular exam reveals an irregularly irregular rhythm with distant heart sounds. Lungs are clear without rales, rhonchi, or wheezes. Abdomen is soft and nontender without bruits. Extremities reveal intact radial artery and posterior tibial pulses bilaterally. There is no peripheral edema. Results & Data ([facility]) Vital Signs (Past 12 Hours) Vital Signs Temp Pulse Resp BP BP Pulse Ox 02/10/20 11:47 36.8 C 87 20 130/78 98 02/10/20 07:38 36.5 C 89 19 135/72 96 02/10/20 04:00 36.5 C 104 H 19 157/87 H 94 Diagnostic Findings monitor car operator notes paroxysms of atrial fibrillation with ventricular response between 100-130 beats per minute. PG Care Time/CCT Total # of Minutes Spent Total Time Spent with Patient: Total time spent is greater than 50% in coordination of care (as documented) at patient's floor/unit and/or counseling patient: Coding Level of Care Code 87454 Subseq Hosp Care Lvl 3 Diagnoses Syncope and collapse R55 Bradycardia R00.1 Atrial fibrillation with RVR I48.91
--- NOTE | 2020-02-10 14:58 | Medical Student Progress Note ---
Date of Service February 10, 2020 Assessment & Plan (1) Atrial fibrillation with RVR: Charleen Krishnamurthy 75 y/o woman with history of afib w/ rvr on eliquis and beta dawit who presents for possible syncopal episode 1) Syncopal episode -Possibly secondary to bradycardia, patient has been bradycardic consistently over the last few weeks likely exacerbated by her new metoprolol. -On 25mg metoprolol BID on admission, titrated down to 12.5 BID during current hospitalization, back up to 25mg today per cards recs -Patients consistent bradycardia and lightheadedness concerning for sinus node dysfunction -Cardiology Dr. Mix consulted; if no recurrent bradycardic episodes or dysrhythmia identified, plan for d/c home tomorrow with event monitor vs. loop recorder -will continue to follow with cardiology; appreciate their recommendations 2) Atrial Fibrillation -Will continue eliquis 5mg BID -Per cardiology, pt had tachy-bhargav episode; restarted metoprolol (receiving 12.5mg po BID) at reduced dose, now up to 25mg BID today -On monitored floor 3) Mild cognitive impairment -Continuing donepezil DVT PPx: Continuing home eliquis F/E/N: heart healthy diet encouraging good PO intake Dispo: telemetry further monitoring and cardiology evaluation. Admission and Anticipated Discharge Date Admission Date: February 09, 2020 Supervising Attestation I personally examined the patient and verified all gonzalez points of history and exam, discussed case, and agree with decision making with Jett Zhang MS4. feeling ok - was a little lightheaded last night now better. cardiology input noted vitals noted nad heent nc at mmm breathing unlabored no accessory muscles good effort skin no rashes no pallor or icterus neuro no focal deficits mental status intact lightheaded/palpitations/syncope -continue to follow rate/rhythm as cardiology titrates beta dawit -anticipate a need for outpt monitoring once she goes home -encouraged activity. Subjective Charleen states that she has had increased dizziness and lightheadedness while getting up to use the restroom last night. She states that she is not in any pain and has not had issues with using the restroom. Review of Systems Constitutional: no fever, no chills, no sweats and no weakness Respiratory: no cough, no dyspnea, no hemoptysis and no wheezing Cardiovascular: + palpitations; no chest pain, no dyspnea and no edema Gastrointestinal: no abdominal pain, no nausea, no vomiting and no diarrhea/loose stools Physical Exam Constitutional: Well appearing female in no acute distress Eyes: PERRL, conjunctivae normal, anicteric sclerae ENMT: external ear and nose normal, oropharynx normal Respiratory: Lungs clear to auscultation bilaterally, no wheezes, rales or rhonchi Cardiovascular: Tachycardic, irregularly irregular rhythm, no murmurs, rubs or extra heart sounds, no peripheral edema. Gastrointestinal (Abdomen): normal bowel sounds, soft, nontender, no hepatosplenomegaly Musculoskeletal: no cyanosis or clubbing, extremities motor strength 5/5 Results & Data ([facility]) Vital Signs (Past 12 Hours) Vital Signs Temp Pulse Resp BP BP Pulse Ox 02/10/20 11:47 36.8 C 87 20 130/78 98 02/10/20 07:38 36.5 C 89 19 135/72 96 02/10/20 04:00 36.5 C 104 H 19 157/87 H 94
--- NOTE | 2020-02-10 16:09 | Electrocardiogram Report ---
Test Reason : Blood Pressure : / mmHG Vent. Rate : 090 BPM Atrial Rate : 000 BPM P-R Int : 000 ms QRS Dur : 114 ms QT Int : 340 ms P-R-T Axes : 000 061 060 degrees QTc Int : 415 ms Atrial fibrillation Abnormal ECG When compared with ECG of 08-FEB-2020 21:42, Atrial fibrillation has replaced Sinus rhythm Vent. rate has increased BY 40 BPM Confirmed by Cristino Mix ([id number]) on 02/10/2020 4:08:59 PM Referred By: REFERRED SELF Confirmed By:Cristino Mix
--- NOTE | 2020-02-10 16:38 | Billing Data ---
Date of Service February 10, 2020 Coding Level of Care Code 32688 Subseq Obs Care Lvl 2
[2020-02-11 04:39] LABS: Basophils # (auto) 0.03 K/uL (0-0.2); Basophils % (auto) 0.6 %; Hematocrit (blood only) 44.7 % (37-47); Hemoglobin 14.6 g/dL (12.0-16.0); Lymphocytes % (auto) 39.1 %; Mean Corpuscular Hemoglobin 31.9 pg (25-34); Mean Corpuscular Hgb Conc 32.7 g/dL (32-36); Mean Corpuscular Volume 97.8 fL (80-100); Mean Platelet Volume 10.7 fL (7.4-10.4); Monocytes # (auto) 0.42 K/uL (0.11-0.59); Monocytes % (auto) 8.2 %; Neutrophils # (auto) 2.56 K/uL (1.4-6.5); Neutrophils % (auto) 50.1 %; Platelet Count 182 K/uL (130-400); RDW Coefficient of Variation 13.2 % (11.5-14.5); RDW Standard Deviation 46.9 fL (36.4-46.3); Red Blood Count 4.57 M/uL (4.2-5.4); White Blood Count 5.11 K/uL (4.8-10.8)
[2020-02-11 05:03] LABS: BUN Creatinine Ratio 18.9 (10-20); Calcium 8.7 mg/dl (8.5-10.1); Creatinine Clr Calc Pharmacy 61.6 ml/min; Est GFR (African American) 80.6; Est GFR (Non-African American) 69.5; Potassium 4.2 mmol/L (3.5-5.1)
[2020-02-11] MEDS: METOPROLOL TARTRATE 25 MG TAB PO SCH ×2 (07:44→19:52)
[2020-02-11] MEDS: MULTIVITAMIN TAB PO SCH (07:44)
[2020-02-11] MEDS: POTASSIUM CHLORIDE CRTAB 20 MEQ TABCR PO SCH ×2 (07:44→19:52)
[2020-02-11] MEDS: OMEGA-3 (PURIFIED FISH OIL) 1 GM CAP PO SCH (07:44)
[2020-02-11] MEDS: APIXABAN 5 MG TABLET PO SCH (07:45)
[2020-02-11] MEDS: DONEPEZIL HCL 10 MG TAB PO SCH (07:45)
[2020-02-11] MEDS: CALCIUM 600MG + VIT D 400 IU TAB PO SCH (07:45)
--- NOTE | 2020-02-11 10:57 | Discharge Summary ---
Date of Service February 11, 2020 Admission HPI Per Admitting Provider Charleen Krishnamurthy is a 75 year old woman with a past medical history significant for recently diagnosed atrial fibrillation. She was hospitalized last month with a fib and RVR and was started on anticoagulation with eliquis and metoprolol 25 mg BID. Patient was sitting playing scrabble today with her partner when she became "dizzy" lightheaded and felt slightly nauseous when her partner noticed that she was snoring. She woke her up and she was back to her normal self within a few seconds but did have cold extremities per her partner. She has been well recently, no recent fevers, chills, sweats, no previous syncope, no palpitations, no chest pain, no shortness of breath, no cough, no N/V/D/c. She does tell me she regularly feels lightheaded while changing positions, particularly while getting up from sitting or from leaning over to tie her shoes but has not fainted before. She says this has been happening lately but also did occur prior to starting her metoprolol. She does check her blood pressure and heart rate at home and has been averaging 90's-100's/50's-60's and pulse rate has been in the 50's consistently. Has not had any further tachycardia that she is aware of. On presentation to ED patient is feeling back to her usual state of health but she is hypotensive and bradycardic to what sounds like her baseline 107/58 and pulse rate of 58. Per EMS patient was in 40's HR on the drive over. Patient was given 1.5 L nss in ED and was seen by me with her partner present. She has a remote smoking history 30+ years ago, drinks one glass of wine per day, and does not use any drugs. She lives at home with partner Xochilt here in on license of [facility] [place]. FUll Code Admission Exam Per Admitting Provider Constitutional: Well appearing 75 year old woman appearing stated age in no distress resting comfortably in bed Eyes: PERRLA EOMMI bilaterally ENMT: NAD Neck: No JVD, no abnormalities detected REspiratory: No increased work of breathing, lung sounds vesicular in all lung reyes Cardiovascular: S1 S2 normal, bradycardic, regular rhythm, no m/r/s/g, peripheral pulses intact globally GI: Abdomen soft non tender no masses Neuro: CN II-Xii intact, muscle strength equal in all extremities, reflexes equal and normal bilaterally Principal Diagnosis Syncope Discharge Exam Constitutional Well appearing female in no acute distress. Eyes PERRL, conjunctivae normal, anicteric sclerae ENMT external ear and nose normal, oropharynx normal Respiratory Lungs clear to auscultation bilaterally, no wheezes, rales or rhonchi Cardiovascular Bradycardic, regular rhythm, no murmurs, rubs or extra heart sounds Gastrointestinal (Abdomen) Normoactive bowel sounds, nontender to palpation, no hepatosplenomegaly. Psychiatric A+Ox3, euthymic affect Discharge Data Allergies Allergy/AdvReac Type Severity Reaction Status Date / Time ciprofloxacin Allergy Unknown rash Verified 02/08/20 23:22 Consultations 02/08/20 23:13 ED Decision to Admit Stat 02/09/20 03:07 Consult Cardiology Routine Hospital Course (1) Syncope and collapse: Charleen Krishnamurthy is a 75 y/o woman with history of afib w/ rvr on eliquis and beta dawit who presents for possible syncopal episode 1) Syncopal episode -[place] secondary to bradycardia, patient has been bradycardic consistently over the last few weeks likely exacerbated by her new metoprolol 25mg BID for afib rate control. -On 25mg metoprolol BID on admission, titrated down to 12.5 BID during current hospitalization with episodes of afib w/RVR, per cardiology she will be titrated back up to 25mg BID at discharge. - -Cardiology Dr. Mix consulted; if no recurrent bradycardic episodes or dysrhythmia identified, plan for d/c home tomorrow with event monitor vs. loop recorder -will continue to follow with cardiology; appreciate their recommendations 2) Atrial Fibrillation -Will continue eliquis 5mg BID -Per cardiology, pt had tachy-bhargav episode; restarted metoprolol (receiving 12.5mg po BID) at reduced dose, now up to 25mg BID today -On monitored floor 3) Mild cognitive impairment -Continuing donepezil Discharge Plan Discharge Items Patient Disposition: Home - Self-Care Reason For Visit: SYNCOPE Discharge Diagnosis: Syncope Activity: Per Instructions section Non-emergency contact: Primary Care Provider Call non-emergency contact if: you have any medication questions and your symptoms worsen Follow-up/Referrals: Kristina Gil CRNP [Primary Care Provider] - Diet: Regular Addtl Attending Provider Instructions: You were admitted for syncope. We are sending you home with a heart monitor so we can evaluate for any cardiac events that are contributing to your syncope. Pick this up from the cardiology clinic at [address], just across the parking lot from [facility]. We are not sending you home with any new medications. Continue taking your home dose metoprolol (25mg twice a day). Make sure you stay well-hydrated to help prevent low blood pressure. It is very important that you move slowly and carefully when you are changing positions - when you stand up from a seated or laying position, or when you are bending over. Ask family or friends with help tying your shoes, picking something up off the floor, or any other activity that requires bending over. Use support when you can to stand up. This is all very important to prevent an injury from falling down. Please follow up with your primary care physician with one week of discharge. If you experience any new or worsening symptoms, please contact your primary care physician. If you experience any concerning symptoms, please call 911 or go to the nearest emergency department. Pending Studies at Discharge: No Stand-Alone Forms: My [facility], Smoking Cessation Medications and DC Order Prescriptions: Continued trazodone 50 mg tablet 50 mg PO HS Qty: 90 RF: 1 donepezil 10 mg tablet 10 mg PO QAM Qty: 90 RF: 1 alendronate 70 mg tablet 70 mg PO WK RF: 0 multivitamin [Multiple Vitamins] tablet 1 tab PO QAM RF: 0 calcium carbonate-vitamin D3 [Calcium 600 + D(3)] 600 mg(1,500mg) -400 unit Tablet 1 tab PO QAM RF: 0 omega 6-xpi-ktb-fish oil [Fish Oil] 1,200 (144-216) mg Capsule 2 cap PO QAM RF: 0 metoprolol tartrate 25 mg tablet See Rx Instructions .ROUTE .COMPLEX RF: 0 loperamide 2 mg Tablet 2 mg PO Q6H PRN (Reason: Diarrhea) RF: 0 Eliquis 5 mg Tablet 5 mg PO BID 30 Days Qty: 60 RF: 1 Admission Data Admit Date/Time: 02/11/20 06:30 Attending Provider: Satish Lawler Admit Provider: Gregoria,Daniele Primary Care Provider: Kristina Gil Other Providers: Varun Raygoza ; Cristino Mix ; Jyoti Gallagher
--- NOTE | 2020-02-11 11:25 | Cardiology Progress Note ---
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 Casarez. Agree with her assessment and plan. She needs metoprolol to rate control her paroxysmal afib. Bradycardia noted and may be symptomatic. Recent syncopal event noted. Case discussed with Dr. Mejias. He feels a pacemaker is indicated. Will proceed with permanent pacemaker implantation tomorrow. Subjective Patient was seen and evaluated in her room today. She was sitting in the chair at bedside and had just finished eating breakfast. Patient is resting comfortably but reports noticing persistent intermittent palpitations, dizziness, lightheadedness and nausea. She has had no vomiting. Patient denies CP, SOB, syncope, or edema. Review of Systems Constitutional: no fever and no chills Respiratory: no cough and no dyspnea Cardiovascular: + palpitations and + lightheadedness; no chest pain, no syncope and no edema Gastrointestinal: + nausea; no vomiting Musculoskeletal: no swelling Neurologic: + dizziness; no headache(s) Physical Exam Physical Exam: GENERAL: No acute distress. Well developed and well nourished. Vital signs reviewed as above. EYES: EOMI. Anicteric sclerae. HENT: Moist mucous membranes. RESPIRATORY: Clear to auscultation bilaterally. No wheezing, rales, or rhonchi. CARDIOVASCULAR: Regular rate and rhythm. No JVD. ABDOMEN: Soft and non-tender. Normal bowel sounds. EXTREMITIES: No edema. Non-tender. PSYCHIATRIC: Cooperative. Appropriate mood and affect. Results & Data ([facility]) Vital Signs (Past 12 Hours) Vital Signs Temp Pulse Pulse Pulse Resp BP BP 02/11/20 08:00 72 02/11/20 07:58 36.7 C 58 L 18 99/56 L 02/11/20 06:00 36.7 C 72 16 105/44 L 02/11/20 04:06 36.6 C 70 18 110/56 L 02/11/20 04:04 36.6 C 58 L 18 110/56 L 02/11/20 00:14 36.6 C 69 19 132/75 Pulse Ox 02/11/20 08:00 02/11/20 07:58 97 02/11/20 06:00 94 02/11/20 04:06 98 02/11/20 04:04 94 02/11/20 00:14 97 PG Care Time/CCT Total # of Minutes Spent Total Time Spent with Patient: Total time spent is greater than 50% in coordination of care (as documented) at patient's floor/unit and/or counseling patient: Coding Level of Care Code 74828 Subseq Hosp Care Lvl 3 Diagnoses Syncope and collapse R55 Bradycardia R00.1 Atrial fibrillation with RVR I48.91
--- NOTE | 2020-02-11 14:12 | Medical Student Progress Note ---
Date of Service February 11, 2020 Assessment & Plan (1) Syncope and collapse: Charleen Krishnamurthy 75 y/o woman with history of afib w/ rvr on eliquis and beta dawit who presents for possible syncopal episode 1) Syncopal episode -Possibly secondary to bradycardia, patient has been bradycardic consistently over the last few weeks likely exacerbated by her new metoprolol. -On 25mg metoprolol BID on admission, titrated down to 12.5 BID during current hospitalization, back up to 25mg BID per cards recs -Patients consistent bradycardia and lightheadedness concerning for sinus node dysfunction -Cardiology Dr. Mix consulted; will plan for implantable pacemaker 02/11. -Hold Eliquis prior to procedure. 2) Atrial Fibrillation -Hold Eliquis 5mg BID prior to procedure -Per cardiology, pt had tachy-bhargav episode; restarted metoprolol (receiving 12.5mg po BID) at reduced dose, now up to 25mg BID. -On monitored floor 3) Mild cognitive impairment -Continuing donepezil DVT PPx: Holding prior to procedure F/E/N: heart healthy diet encouraging good PO intake Dispo: Pacemaker implant 02/12/20. Admission and Anticipated Discharge Date Admission Date: February 11, 2020 Supervising Attestation I personally examined the patient and verified all gonzalez points of history and exam, discussed case, and agree with decision making with Jett Zhang MS4. feeling ok just dizzy and lightheaded. notes mostly a lightheaded sensation when getting up - but also did have a dizziness when leaning forward when tying shoes as an example of dizzy at home extensive d/w pt and partner, answered all questions to the best of my ability vitals noted nad heent nc at mmm breathing unlabored no accessory muscles good e ffort neuro no focal deficits sick sinus - agree w pacer - w her current issues w rate control it apperas that she would be headed in that direction in the near future regardless -and better to pace at current situation than when she has traumatic syncope, CHF, etc. stable for procedure. extensive discussion dizziness - difficult to discern if all lightheaded from flow vs also an element of BPV. for now will follow how she feels post pacer - then consider vestibular therapy otherwise as above Subjective Patient was seen in her room this morning while she was eating breakfast. She states that she feels more lightheaded and occasionally dizzy. This is not associated with activity. She states she has some occasional nausea but denies any vomiting. She had an episode of diarrhea but states that is not uncommon for her. Review of Systems Constitutional: no fever, no chills, no fatigue and no weakness Respiratory: no cough, no dyspnea, no hemoptysis and no wheezing Cardiovascular: + palpitations and + lightheadedness; no chest pain, no dyspnea, no orthopnea and no edema Gastrointestinal: + nausea; no abdominal pain, no vomiting and no constipation Physical Exam Constitutional: Well appearing woman in no acute distress sitting in her chair. Respiratory: Lungs clear to auscultation, no wheezes, rales or rhonchi Cardiovascular: Regular rate and rhythm, no murmurs, rubs or extra heart sounds. No peripheral edema. Gastrointestinal (Abdomen): Normoactive bowel sounds, nontender to palpation, no hepatosplenomegaly Psychiatric: A+Ox3, euthymic affect Results & Data ([facility]) Vital Signs (Past 12 Hours) Vital Signs Temp Pulse Pulse Pulse Resp BP BP 02/11/20 12:08 36.4 C L 59 L 17 116/42 L 02/11/20 08:00 72 02/11/20 07:58 36.7 C 58 L 18 99/56 L 02/11/20 06:00 36.7 C 72 16 105/44 L 02/11/20 04:06 36.6 C 70 18 110/56 L 02/11/20 04:04 36.6 C 58 L 18 110/56 L Pulse Ox 02/11/20 12:08 97 02/11/20 08:00 02/11/20 07:58 97 02/11/20 06:00 94 02/11/20 04:06 98 02/11/20 04:04 94
--- NOTE | 2020-02-11 17:43 | Billing Data ---
Date of Service February 11, 2020 Coding Level of Care Code 93277 Subseq Hosp Care Lvl 3
[2020-02-11] MEDS ORDERED: MELATONIN 3 MG TAB PO PRN (21:07)
[2020-02-12 05:35] LABS: Creatinine Clr Calc Pharmacy 66.5 ml/min; Est GFR (African American) 88.3; Est GFR (Non-African American) 76.2
[2020-02-12] MEDS: CALCIUM 600MG + VIT D 400 IU TAB PO SCH (09:01)
[2020-02-12] MEDS: METOPROLOL TARTRATE 25 MG TAB PO SCH ×2 (09:01→21:18)
[2020-02-12] MEDS: MULTIVITAMIN TAB PO SCH (09:01)
[2020-02-12] MEDS: OMEGA-3 (PURIFIED FISH OIL) 1 GM CAP PO SCH (09:01)
[2020-02-12] MEDS: DONEPEZIL HCL 10 MG TAB PO SCH (09:01)
[2020-02-12] MEDS: POTASSIUM CHLORIDE CRTAB 20 MEQ TABCR PO SCH ×2 (09:01→21:18)
--- NOTE | 2020-02-12 09:07 | Pre Anesthesia Assessment ---
Date of Service February 12, 2020 Pre Sedation Assessment Vital Signs Temp Pulse Pulse Pulse Resp BP BP 02/12/20 04:00 36.6 C 52 L 16 118/65 02/12/20 00:19 36.6 C 59 L 18 112/62 02/11/20 19:49 36.7 C 62 16 127/69 02/11/20 16:00 72 02/11/20 15:47 36.5 C 53 L 22 111/52 L 02/11/20 12:08 36.4 C L 59 L 17 116/42 L Pulse Ox 02/12/20 04:00 96 02/12/20 00:19 95 02/11/20 19:49 96 02/11/20 16:00 02/11/20 15:47 95 02/11/20 12:08 97 Cardiovascular + irregularly irregular Respiratory + respiratory effort normal Pre-Sedation Airway Assessment Smoking Status: Unknown if ever smoked Hx Sleep Apnea: No Hx Difficult Intubation: No Short, Thick Neck: No Thyromental Distance: > or= 3.5 Finger Breadths Oral Cavity: + WNL Mallampati Class: III ASA: ASA3 Procedure Planning Contraindications for Sedation: none Current Medications Reviewed: Yes Notes The planned sedation has been discussed with the patient. Informed Consent was obtained. I have identified the patient, determined the appropriateness of sedation and have assessed the patient immediately prior to the procedure. All medicine(s) and interventions are by my order.
--- NOTE | 2020-02-12 10:26 | Cardiology Progress Note ---
Date of Service February 12, 2020 Assessment & Plan (1) Syncope and collapse: After further discussion and evaluation yesterday, case was discussed with Dr. 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 Mejias NPO status in preparation for procedure Discussed plan for outpatient cardiac follow up with patient after discharge from hospital All questions answered to patient's and partner's satisfaction (2) Bradycardia: see above (3) Atrial fibrillation with RVR: see above This morning, on monitor patient converted back into atrial fibrillation with rates currently around 100 bpm Eliquis currently being held in preparation for today's pacemaker implantation procedure Plan to restart Eliquis 5mg po bid tonight after completion of procedure Admission and Anticipated Discharge Date Admission Date: February 11, 2020 Supervising Physician Co-Signing Physician Notes Patient seen and examined with Dr. Casarez. Agree with her assessment and plan. Permanent pacemaker by Dr. Mejias later today. Subjective Patient seen and evaluated in her room today; she was resting comfortably in bed with partner, Xochilt, in chair at bedside. Patient reports persistent lightheadedness and dizziness, both of which are exacerbated with positional changes. She also notes persistent intermittent palpitations. Prior complaint of nausea from yesterday has resolved; she has had no vomiting. Patient denies CP, SOB, syncope, or edema. Review of Systems Cardiovascular: + palpitations and + lightheadedness; no chest pain, no syncope and no edema Gastrointestinal: no nausea and no vomiting Neurologic: + dizziness; no headache(s) Physical Exam Physical Exam: GENERAL: No acute distress. Well developed and well nourished. Vital signs reviewed as above. EYES: EOMI. Anicteric sclerae. HENT: Moist mucous membranes. RESPIRATORY: Clear to auscultation bilaterally. No wheezing, rales, or rhonchi. CARDIOVASCULAR: Irregularly irregular rhythm. No JVD. ABDOMEN: Soft and non-tender. Normal bowel sounds. EXTREMITIES: No edema. Non-tender. No calf tenderness to palpation or with deep squeeze. PSYCHIATRIC: Cooperative. Appropriate mood and affect. Results & Data ([facility]) Vital Signs (Past 12 Hours) Vital Signs Temp Pulse Resp BP Pulse Ox 02/12/20 04:00 36.6 C 52 L 16 118/65 96 02/12/20 00:19 36.6 C 59 L 18 112/62 95 PG Care Time/CCT Total # of Minutes Spent Total Time Spent with Patient: Total time spent is greater than 50% in coordination of care (as documented) at patient's floor/unit and/or counseling patient: Coding Level of Care Code 02260 Subseq Hosp Care Lvl 3 Diagnoses Syncope and collapse R55 Bradycardia R00.1 Atrial fibrillation with RVR I48.91
[2020-02-12] MEDS ORDERED: BUPIVACAINE 0.25% 30 ML VIAL ONE (10:40)
[2020-02-12] MEDS ORDERED: BACITRACIN INJ 50,000 UNIT VIAL ONE (10:40)
[2020-02-12] MEDS ORDERED: LIDOCAINE HCL 1% 20 ML VIAL ONE (10:40)
[2020-02-12] MEDS ORDERED: MIDAZOLAM HCL 5 MG/ML 1 ML VIAL ONE (11:39)
[2020-02-12] MEDS ORDERED: fentaNYL citrate 100 MCG/2 ML VIAL ONE (11:39)
--- NOTE | 2020-02-12 13:01 | Electrophysiology Report ---
Date of Service February 12, 2020 Electrophysiology Procedure Electrophysiology Procedure Report Procedure performed: Implantation of dual-chamber permanent pacemaker Staff care transitions manager: Eladio Mejias MD Indication: The patient is a 75-year-old woman with a history of paroxysmal a trial fibrillation. She was noted to have rapid ventricular rates while in atrial fibrillation and bradycardia with symptoms when in sinus rhythm. 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 A pacemaker was felt to be at necessary for symptomatic nonreversible AV node dysfunction. Dual-chamber device was selected as wish to maintain AV synchrony and she is currently in sinus rhythm. Procedure in detail: The patient was informed of the risks benefits and alternatives to the intended procedure and she wished to proceed. She was taken to the electrophysiology suite in a fasting state. A preoperative antibiotic had been administered. The patient was monitored electrocardiographically throughout today's procedure and conscious sedation was administered per protocol. The left upper pectoral area is prepped and draped in usual sterile fashion. This area was anesthetized using subcutaneous administration of a xylocaine solution. An incision was made at this site and carried down to the prepectoralis fascia using sharp dissection. Electrocautery was also employed for dissection as well as for hemostasis. A device pocket was fashioned tissues above the pectoralis muscle. Subsequent to this maneuver the left axillary vein was accessed using modified Seldinger technique. Sheaths were placed over guidewires at this site and used to facilitate passage of the pacing leads to the respective chambers under fluoroscopic guidance. This included right atrial and septal right ventricular leads. For placement of the septal right ventricular lead a guiding sheath was used and pace mapping was performed. The septal lead position was evaluated with contrast injection. This demonstrated adequate position in the septum. Adequate sensing and threshold parameters were obtained prior to Active fixation of the leads to the endocardial surface. The proximal portion leads were then sutured the prepectoral fascia using nonabsorbable suture. The device pocket was irrigated with antibiotic solution. The leads were then attached to the device. The device and leads were then placed in the pocket and pocket was closed in 3 layers of absorbable suture. Steri-Strips and sterile dressing were applied. The device was tested noninvasively prior to conclusion the procedure. The patient tolerated procedure well there no immediate complications. Equipment used: New pulse generator: Repairer [employer] ftopia. Model number: [id number] serial number [id number] Right atrial lead: Repairer [employer]. Model number: 5076 serial number [id number] Right ventricular lead: Repairer [employer]. Model number: 3830 serial number [id number] Measured data: Right atrial lead: P waves measured 4.3 mV. Pacing threshold 1.25 V at 0.4 ms with a pacing impedance of 741 ohms Right ventricular lead: R waves measured greater than 20 mV. Pacing threshold 0.5 V at 0.4 ms with a pacing impedance of 950 ohms Impression: Successful implantation of dual-chamber permanent pacemaker with septal (LBB) right ventricular lead [facility] Electrophysiology codes Pacing Procedure 1: Pacin Insert/Replace Pacer A & V PG Moderate Sedation Codes Moderate Sedation Codes Procedure 1: Sedation/Anesthesia: 39970 Mod Sedation by the same physician;Init15 Min Child Age 5 & Up Procedure 2: Sedation/Anesthesia: 51722 Mod Sedation by the same physician; Ea [id number] Minutes
--- NOTE | 2020-02-12 13:01 | Post Anesthesia Assessment ---
Date of Service February 12, 2020 Post Sedation Assessment Vital Signs Temp Pulse Pulse Pulse Resp BP BP 02/12/20 08:00 69 02/12/20 07:14 36.5 C 61 17 111/69 02/12/20 04:00 36.6 C 52 L 16 118/65 02/12/20 00:19 36.6 C 59 L 18 112/62 02/11/20 19:49 36.7 C 62 16 127/69 02/11/20 16:00 72 02/11/20 15:47 36.5 C 53 L 22 111/52 L Pulse Ox 02/12/20 08:00 02/12/20 07:14 96 02/12/20 04:00 96 02/12/20 00:19 95 02/11/20 19:49 96 02/11/20 16:00 02/11/20 15:47 95 Recovery Score Activity: Moves 4 extremities Respiration: Deep Breath/Cough Circulation: +/-20% PreAnes Value Consciousness: Fully Awake Oxygen Saturation: > 92% On Room Air Discharge Sedation Level of Care: Fast Track Phase II Post Sedation Plan On clinical assessment, the patient appears to have tolerated the sedation without complications. Patient is recovering as anticipated. Patient will continue to be monitored by nursing and may be discharged when sedation discharge criteria are met per below protocol. Upon Completions of procedure up to 15 minutes continue every 5 minute vital signs and the P.A.R. score; then discharge to a Phase I or Fast Track to Phase II per the following guidelines: * Discharge Patient to appropriate Phase II area if PAR is 8 or greater or return to pre- procedure baseline. The post - procedure orders will be as directed. * If PAR score is less than 8 or not return to pre-procedure baseline then patient will follow Phase I monitoring till PAR is reached for Phase II. The Phase I may be done in procedure room or may call to secure a Phase I area. * If naloxone or flumazenil are used for reversal, hold in Phase I for continued monitoring from when last reversal dose was given for a minimum of 60 minutes or longer pending the nurse and/or physician discretion of patient condition before discharge to Phase II. Please call the Sedation Physician to re-evaluate and complete post-note for discharge to Phase II area. Do NOT discharge from procedure sedation or Phase 1 until post- sedation evaluation note is complete by procedure /sedation MD Sedation Discharge Instructions to be given to the patient at discharge to home.
[2020-02-12] MEDS ORDERED: oxyCODONE HCL IR 5 MG TAB (IMMEDIATE RELEASE) PO PRN (13:17)
--- NOTE | 2020-02-12 15:07 | Medical Student Progress Note ---
Date of Service February 12, 2020 Assessment & Plan (1) Atrial fibrillation with RVR: Charleen Krishnamurthy 75 y/o woman with history of afib w/ rvr on eliquis and beta dawit who presents for possible syncopal episode now s/p pacemaker implantation 1) Syncopal episode -Possibly secondary to bradycardia, patient has been bradycardic consistently over the last few weeks likely exacerbated by her new metoprolol. -On 25mg metoprolol BID on admission, titrated down to 12.5 BID during current hospitalization, back up to 25mg BID per cards recs -Patients consistent bradycardia and lightheadedness concerning for sinus node dysfunction -Cardiology Dr. Mix consulted; s/p implantable pacemaker 02/11. -Restart Eliquis 5mg BID this evening. 2) Atrial Fibrillation -Restart Eliquis 5mg BID this evening -Per cardiology, pt had tachy-bhargav episode; restarted metoprolol (receiving 12.5mg po BID) at reduced dose, now up to 25mg BID. -On monitored floor 3) Mild cognitive impairment -Continuing donepezil DVT PPx: Holding prior to procedure F/E/N: heart healthy diet encouraging good PO intake Dispo: Pacemaker implant 02/12/20. Admission and Anticipated Discharge Date Admission Date: February 11, 2020 Supervising Attestation I personally examined the patient and verified all gonzalez points of history and exam, discussed case, and agree with decision making with Jett Zhang MS4 feeling good - just a little sore, eating well. no distress vitals notedheent nc at mmm breathing unlabored no accessory muscles, HR 74 on monitor no focal neuro deficits L arm in a sling sick sinus - stable post pacer. contniue med management as well. hopefully home tomorrow dizziness - was difficult to discern if all lightheaded from flow vs also an element of BPV. for now will follow how she feels post pacer - then consider vestibular therapy otherwise as above Subjective Patient reports no concerns overnight. She states that she had some episodes of dizziness and lightheadedness that are not associated with movement or activity. She also had mild palpitations this morning. She denies any issues with urination or defecation. Review of Systems Constitutional: no fever, no chills, no fatigue and no weakness Respiratory: no cough, no chest congestion, no dyspnea and no wheezing Cardiovascular: + palpitations and + lightheadedness; no chest pain and no orthopnea Gastrointestinal: no abdominal pain, no nausea, no vomiting and no change in bowel habits Physical Exam Constitutional: Well appearing female in no acute distress resting comfortably in chair at bedside Eyes: PERRL, conjunctivae normal, anicteric sclerae Respiratory: Lungs clear to auscultation bilaterally, no wheezes, rales or rhonchi. Cardiovascular: Irregularly irregular, tachycardic, no JVD or peripheral edema Gastrointestinal (Abdomen): Normoactive bowel sounds, nontender to palpation thoughout Psychiatric: A+Ox3, euthymic affect Results & Data ([facility]) Vital Signs (Past 12 Hours) Vital Signs Temp Pulse Pulse Resp BP BP BP 02/12/20 13:18 60 17 105/61 02/12/20 13:05 66 17 106/60 02/12/20 08:00 69 02/12/20 07:14 36.5 C 61 17 111/69 02/12/20 04:00 36.6 C 52 L 16 118/65 Pulse Ox 02/12/20 13:18 98 02/12/20 13:05 98 02/12/20 08:00 02/12/20 07:14 96 02/12/20 04:00 96
--- NOTE | 2020-02-12 17:19 | Billing Data ---
Date of Service February 12, 2020 Coding Level of Care Code 33424 Subseq Hosp Care Lvl 2
[2020-02-12] MEDS: ceFAZolin 1000MG 1,000 MG/7.5 ML SYR IV SCH (21:17)
[2020-02-12] MEDS: APIXABAN 5 MG TABLET PO SCH (21:17)
[2020-02-13] MEDS: ceFAZolin 1000MG 1,000 MG/7.5 ML SYR IV SCH ×2 (02:50→13:56)
[2020-02-13] MEDS ORDERED: ALENDRONATE SODIUM 70 MG TAB PO SCH (06:00)
--- NOTE | 2020-02-13 09:01 | XRay Report ---
XR chest 2V PA/lateral CLINICAL HISTORY: Pacemaker insertion. COMPARISON STUDY: Chest radiograph May 19, 2017. FINDINGS: There is no pneumothorax placement of a dual-lead left subclavian pacemaker. Lead tips proj ect over the right atrial appendage and the right ventricle. Cardiac size is normal. Mediastinal cont ours are stable. There is no evidence for pulmonary edema. There is no consolidation. There is no ple ural effusion. IMPRESSION: No pneumothorax following placement of a dual-lead left subclavian pacemaker. ACT 112: Negative or not required by law. Electronically signed by: Piotr Dobbs M.D. 02/13/2020 9:00 AM
--- NOTE | 2020-02-13 09:20 | Cardiology Progress Note ---
Date of Service February 13, 2020 Assessment & Plan (1) Syncope and collapse: Likely related to bradycardia (2) Bradycardia: Dual chamber pacemaker implanted yesterday. No complications No lifting left arm above shoulder for 6 weeks. Keep wound dry and steri strip intact until f/u in 1 week Restart Eliquis tomorrow (3) Atrial fibrillation with RVR: -continue Eliquis at 5 mg b.i.d.. Can increase metoprolol as tolrated. Admission and Anticipated Discharge Date Admission Date: February 11, 2020 Subjective Patient with mild discomfort at implant site. Otherwise feeling well. Review of Systems Review of Systems: per HPI Physical Exam Physical Exam: Wound with mild ecchymosis. No hematoma. No drainage or erythema Results & Data ([facility]) Vital Signs (Past 12 Hours) Vital Signs Temp Pulse Pulse Resp BP BP Pulse Ox 02/13/20 06:59 37.0 C 66 20 144/72 H 97 02/13/20 04:01 37.1 C 62 18 113/59 L 98 02/12/20 23:12 37.2 C 63 18 131/71 97 02/12/20 22:28 95 H Diagnostic Findings CXR with good lead position and no PTX Interrogation reveals good function on both leads.
[2020-02-13] MEDS: METOPROLOL TARTRATE 25 MG TAB PO SCH (09:39)
[2020-02-13] MEDS: APIXABAN 5 MG TABLET PO SCH (09:39)
[2020-02-13] MEDS: POTASSIUM CHLORIDE CRTAB 20 MEQ TABCR PO SCH (09:40)
[2020-02-13] MEDS: DONEPEZIL HCL 10 MG TAB PO SCH (09:41)
[2020-02-13] MEDS: MULTIVITAMIN TAB PO SCH (09:42)
[2020-02-13] MEDS: CALCIUM 600MG + VIT D 400 IU TAB PO SCH (09:42)
[2020-02-13] MEDS: OMEGA-3 (PURIFIED FISH OIL) 1 GM CAP PO SCH (09:43)
--- NOTE | 2020-02-13 11:45 | Discharge Summary ---
Date of Service February 13, 2020 Admission HPI Per Admitting Provider Charleen Krishnamurthy is a 75 year old woman with a past medical history significant for recently diagnosed atrial fibrillation. She was hospitalized last month with a fib and RVR and was started on anticoagulation with eliquis and metoprolol 25 mg BID. Patient was sitting playing scrabble today with her partner when she became "dizzy" lightheaded and felt slightly nauseous when her partner noticed that she was snoring. She woke her up and she was back to her normal self within a few seconds but did have cold extremities per her partner. She has been well recently, no recent fevers, chills, sweats, no previous syncope, no palpitations, no chest pain, no shortness of breath, no cough, no N/V/D/c. She does tell me she regularly feels lightheaded while changing positions, particularly while getting up from sitting or from leaning over to tie her shoes but has not fainted before. She says this has been happening lately but also did occur prior to starting her metoprolol. She does check her blood pressure and heart rate at home and has been averaging 90's-100's/50's-60's and pulse rate has been in the 50's consistently. Has not had any further tachycardia that she is aware of. On presentation to ED patient is feeling back to her usual state of health but she is hypotensive and bradycardic to what sounds like her baseline 107/58 and pulse rate of 58. Per EMS patient was in 40's HR on the drive over. Patient was given 1.5 L nss in ED and was seen by me with her partner present. She has a remote smoking history 30+ years ago, drinks one glass of wine per day, and does not use any drugs. She lives at home with partner Xochilt here [facility]. FUll Code Admission Exam Per Admitting Provider Constitutional: Well appearing 75 year old woman appearing stated age in no distress resting comfortably in bed Eyes: PERRLA EOMMI bilaterally ENMT: NAD Neck: No JVD, no abnormalities detected REspiratory: No increased work of breathing, lung sounds vesicular in all lung reyes Cardiovascular: S1 S2 normal, bradycardic, regular rhythm, no m/r/s/g, peripheral pulses intact globally GI: Abdomen soft non tender no masses Neuro: CN II-Xii intact, muscle strength equal in all extremities, reflexes equal and normal bilaterally Principal Diagnosis Syncope Discharge Exam Constitutional Well appearing female in no acute distress, resting comfortably in bed. Eyes PERRL, conjunctivae normal, anicteric sclerae ENMT external ear and nose normal, oropharynx normal Respiratory Lungs clear to auscultation bilaterally, no wheezes, rales or rhonchi. Cardiovascular Regular rate and rhythm, no murmurs, rubs or extra heart sounds. Gastrointestinal (Abdomen) Normoactive bowel sounds, nontender to palpation, no hepatosplenomegaly Skin no rashes, warm and dry Psychiatric A+Ox3, euthymic affect Discharge Data Allergies Allergy/AdvReac Type Severity Reaction Status Date / Time ciprofloxacin Allergy Unknown rash Verified 02/08/20 23:22 Consultations 02/08/20 23:13 ED Decision to Admit Stat 02/09/20 03:07 Consult Cardiology Routine Procedures Performed Operation Date: 02/12/20 12:00 Actual Procedures p Pacer with A/V Leads (Dual) - Moise Mejias MD s Cineradiography w/Routine Exam - Moise Mejias MD s Venogram, Unilateral - Moise Mejias MD s Bundle of his Recording - Moise Mejias MD Ordered Studies 02/12/20 07:00 EP Lab Images for PACS ONCE Hospital Course (1) Syncope and collapse: Charleen Krishnamurthy 75 y/o woman with history of afib w/ rvr on eliquis and beta dawit who presents for possible syncopal episode now s/p pacemaker implantation 1) Syncopal episode -Possibly secondary to bradycardia, patient has been bradycardic consistently over the last few weeks likely exacerbated by her new metoprolol. -On 25mg metoprolol BID on admission, titrated down to 12.5 BID during current hospitalization with increased episodes of afib w/RVR so the decision was made to increase back up to 25mg BID per cards recommendations. -Her consistent bradycardia and lightheadedness concerning for sinus node dysfunction, the decision was made to place an implantable pacemaker on 02/12/20. -F/U with cardiology in outpatient setting 2) Atrial Fibrillation -Continue Eliquis 5mg BID. -Per cardiology, pt had tachy-bhargav episode; metoprolol titrated as above. 3) Mild cognitive impairment -No changes made and continued on home dose of donepezil Total Time Total Time Spent Total Time Spent (In Minutes): <30 Discharge Plan Discharge Items Patient Disposition: Home - Self-Care Reason For Visit: SYNCOPE Discharge Diagnosis: Syncope Activity: Per Instructions section Activity Comment: No raising left arm above shoulder or behind neck for 6 weeks Lifting: No more than 10 pounds Bathing: Keep incision dry Bathing Comment: keep wound dry and steri-strip intact until f/u next week Non-emergency contact: Primary Care Provider Call non-emergency contact if: you have any medication questions, your symptoms worsen, you have a fever, your wound has increased redness, your wound has increased drainage and your wound pain has increased Follow-up/Referrals: Kristnia Gil CRNP [Primary Care Provider] - 02/18/20 2:10 pm Diet: Regular Addtl Attending Provider Instructions: You were admitted for syncope. The cardiology team placed a pacemaker in your chest. We are not sending you home with any new medications. Continue taking your home dose metoprolol (25mg twice a day). Make sure you stay well-hydrated to help prevent low blood pressure. It is very important that you move slowly and carefully when you are changing positions - when you stand up from a seated or laying position, or when you are bending over. Ask family or friends with help tying your shoes, picking something up off the floor, or any other activity that requires bending over. Use support when you can to stand up. This is all very important to prevent an injury from falling down. Please follow up with your primary care physician with one week of discharge. If you experience any new or worsening symptoms, please contact your primary care physician. If you experience any concerning symptoms, please call 911 or go to the nearest emergency department. Pending Studies at Discharge: No Stand-Alone Forms: My [facility] Medications and DC Order Prescriptions: Continued trazodone 50 mg tablet 50 mg PO HS Qty: 90 RF: 1 donepezil 10 mg tablet 10 mg PO QAM Qty: 90 RF: 1 alendronate 70 mg tablet 70 mg PO WK RF: 0 multivitamin [Multiple Vitamins] tablet 1 tab PO QAM RF: 0 calcium carbonate-vitamin D3 [Calcium 600 + D(3)] 600 mg(1,500mg) -400 unit Tablet 1 tab PO QAM RF: 0 omega 1-oua-haw-fish oil [Fish Oil] 1,200 (144-216) mg Capsule 2 cap PO QAM RF: 0 metoprolol tartrate 25 mg tablet See Rx Instructions .ROUTE .COMPLEX RF: 0 loperamide 2 mg Tablet 2 mg PO Q6H PRN (Reason: Diarrhea) RF: 0 Eliquis 5 mg Tablet 5 mg PO BID 30 Days Qty: 60 RF: 1 Discharge Orders: Discharge Order (Routine); Ordered 02/13/20 Ordered By: Amol Zapata/Other Patient Handouts: Pacemakers, Causes of Syncope, Treating Syncope: Helping Your Heart Admission Data Admit Date/Time: 02/11/20 06:30 Attending Provider: Satish Lawler Admit Provider: Daniele Kinney Primary Care Provider: Kristina Gil Other Providers: Varun Raygoza ; Cristino Mix ; Jyoti Gallagher Other Interventions: Discharge Summary Assessment (RN) Last Done: 02/13/20 13:57 Supervising Physician Co-Signing Physician Notes I personally examined the patient and verified all gonzalez points of history and exam, discussed case, and agree with decision making with Jett Zhang MS4 feeling good - wants to go home vitals noted heent nc at mmm breathing unlabored no accessory muscles, arm in sling sick sinus - stable post pacer. stable for home, continue current med management dizziness - was difficult to discern if all lightheaded from flow vs also an element of BPV. for now will follow how she feels post pacer - then consider vestibular therapy otherwise as above
--- NOTE | 2020-02-13 16:19 | Billing Data ---
Date of Service February 13, 2020 Coding Level of Care Code D/C Day Management <30 mins
== END 2020-02-13 14:17 | disposition home or self-care (01) | DRG 244 ==
LOC: ED 21:39 → 1E 21:39 → SUATTDRO 02-09 00:19 → 1E 02-09 02:44 → 2S 02-12 22:14

== ENCOUNTER 2023-07-14 15:12 | Inpatient (IN) ==
--- NOTE | 2023-07-14 15:17 | ED Triage Note ---
Date of Service July 14, 2023 Provider in Triage Author: Shivani Weeks History of Present Illness This patient was briefly evaluated while in triage. An abbreviated physical exam was performed. This patient is a 78-year-old Female who presents to the ED for evaluation here yesterday after a fall at [facility] wrist fractures, c-spine fracture per spouse-staff at [facility] report patient is confused, uncooperative, refusing medications/food, complaining of a headache Physical Exam GENERAL: NAD in a wheelchair in a soft collar CARDIOVASCULAR: RRR RESPIRATORY: CTA EXT: bilateral wrists in orthoglass splints Initial orders for labs and / or imaging were placed and patient was placed in the waiting area until a bed is available. Please see further documentation for the full ED course.
[2023-07-14 15:58] LABS: Basophils # (auto) 0.03 K/uL (0.00-0.20); Basophils % (auto) 0.5 %; Eosinophils # (auto) 0.03 K/uL (0.00-0.50); Eosinophils % (auto) 0.5 %; Hematocrit (blood only) 44.8 % (37.0-47.0); Hemoglobin 15.6 g/dl (12.0-16.0); Immature Granulocytes # (auto) 0.02 K/uL (0.01-0.20); Immature Granulocytes % (auto) 0.4 %; Lymphocytes # (auto) 1.29 K/uL (1.20-3.40); Lymphocytes % (auto) 22.6 %; Mean Corpuscular Hemoglobin 32.8 pg (25.0-34.0); Mean Corpuscular Hgb Conc 34.8 g/dL (32.0-36.0); Mean Corpuscular Volume 94.3 fL (80.0-100.0); Mean Platelet Volume 11.3 fL (9.4-12.4); Monocytes # (auto) 0.44 K/uL (0.11-0.59); Monocytes % (auto) 7.7 %; Neutrophils % (auto) 68.3 %; Platelet Count 160 K/uL (130-400); RDW Coefficient of Variation 12.9 % (11.5-14.5); RDW Standard Deviation 45.2 fL (36.4-46.3); Red Blood Count 4.75 M/uL (4.20-5.40); White Blood Count 5.71 K/ul (4.8-10.8)
[2023-07-14 16:02] LABS: iSTAT Creatinine 0.6 mg/dl (0.6-1.3); iSTAT Hemoglobin 15.3 g/dl (12.0-16.0); iSTAT Ionized Calcium 1.2 mmol/l (1.12-1.32); iSTAT Potassium 4.4 mmol/L (3.3-5.0)
[2023-07-14 16:13] LABS: Alanine Aminotransferase 9 U/L (7-52); Albumin Globulin Ratio 1.5 (0.9-2); Albumin Level 4.9 gm/dl (3.4-5.0); Alkaline Phosphatase 65 U/L (34-104); Anion Gap 11 (3-11); Aspartate Aminotransferase 19 U/L (13-39); BUN Creatinine Ratio 17.4 (10-20); Bilirubin,Total 1.1 mg/dl (0.2-1.0); Blood Urea Nitrogen 12 mg/dl (6-23); Calcium 9.8 mg/dl (8.6-10.3); Carbon Dioxide 19 mmol/L (21-32); Chloride 106 mmol/L (98-107); Est GFR (Non-African American) 82.8 ml/min; Globulin 3.3 gm/dl (2.5-4.0); Glucose 108 mg/dl (70-99(Fasting)); Magnesium 2.2 mg/dl (1.7-2.4); Potassium 4.5 mmol/L (3.5-5.1); Sodium 136 mmol/L (136-145); Total Protein 8.2 gm/dl (6.0-8.3)
--- NOTE | 2023-07-14 16:17 | Emergency Department Note ---
Impression & Plan Confusion, Fall, Closed C1 fracture, Wrist fracture, bilateral, Acute UTI ED Provider Note NAME: MARION OLMOS AGE: 78 SEX: F : 1945 ARRIVES VIA: Walk-In INFORMANT: [Patient][sig other] ED PROVIDER(S): [Beto Hackett MD] CHIEF COMPLAINT: Altered mental state HISTORY OF PRESENT ILLNESS: The patient is a 78-year-old female who presents to the ER with some confusion and stuttering to her speech. She was earlier complaining of a headache. The patient is on Eliquis. She had fallen yesterday. She suffered bilateral distal radius fractures, a C1 fracture that was thought nonsurgical. Brain CT imaging yesterday did not show acute bleed or mass effect. The patient is not herself since being discharged back to [facility]. She is more confused, she has not taken any of her meds, she has no appetite. She has no headache currently but did complain of a headache earlier. As per the significant other at the bedside, the patient appears similar in her mental state as she was yesterday. PMHx/PSHx/Social Hx: See Below PHYSICAL EXAM: GENERAL: Patient is in no acute distress. HEENT: No acute trauma, normocephalic atraumatic, mucous membranes moist, no nasal congestion. NECK: No stridor, soft collar in place. LUNGS: Clear to auscultation bilaterally, no wheeze, no rhonchi, breath sounds equal. HEART: Without murmurs gallops or rubs, regular rate and rhythm. ABDOMEN: Soft, nontender, no peritonitis. EXTREMITIES: No cyanosis. Patient does have splints on both forearms/wrists. NEUROLOGIC: Awake and alert, poor historian, no speech slur, no acute motor or sensory deficits, no focal weakness. SKIN: No jaundice, no diaphoresis. DIFFERENTIAL DIAGNOSIS: Dehydration, medication reaction, electrolyte imbalance, UTI, anemia, intracranial bleeding, among others. EMERGENCY DEPARTMENT PROCEDURES: MEDICAL DECISION MAKING: There is no leukocytosis or concerning anemia. There is a normal platelet count. There is no renal failure or significant electrolyte abnormality. No concerning liver enzyme elevation. Urinalysis does show infection. Chest x-ray shows some chronic change, no pneumonia. ECG shows a normal sinus rhythm, no obvious acute ST elevation. Cardiac enzyme testing x 1 is not consistent with acute cardiac injury. Brain CT shows no acute bleed or mass effect. CT angio of the head and neck were performed, there was no clot or significant stenosis. On exam, the patient had splints on both forearms. She was wearing a soft collar. She did not seem in significant distress. There is no speech slur or facial droop. The patient received IV saline 1 L. She was given IV ceftriaxone for the UTI, she was given oral Tylenol for her fracture pain. The patient is in need of a hospital stay. She has a UTI which may explain her confusion. She has fallen. She has bilateral wrist fractures and is not doing well at her care center. Hospitalization is currently indicated. I spoke with the patient and her significant other. I spoke with case management, the on-call hospitalist was consulted. Prior/Outside records/notes reviewed: Yesterday's ED visit note discussing her fall and findings on imaging. ECG per my interpretation: Indication was confusion. The ECG shows a normal sinus rhythm with a rate of 83. There is some subtle ST depression laterally. There is no acute ST elevation, no PVCs. The QTc is 448. Continuous Cardiac Monitoring per my interpretation: An order was placed for continuous cardiac monitoring. The monitor shows a rate of 84 with normal sinus rhythm. Imaging/x-ray results per my interpretation: Chest x-ray shows some chronic change, I see no pneumonia or pneumothorax. Chronic Medical/Social conditions affecting care: Advanced age, dementia. Care/Management discussed with: Case management, the on-call hospitalist Level of care consideration(s): After review of the information above and other included data: --I believe the patient requires escalation of care to admission DISPOSITION: Admission Past Med/Surg History Medical History Frequent diarrhea Multiple thyroid nodules scheduled for biopsy of thyroid 12/30/20 @ [facility] Tremor Anticoagulant long-term use eliquis bid Soft tissue mass Dementia Seasonal allergies Paroxysmal atrial fibrillation on eliquis daily--follows with Dr. Valadez Pacemaker meditronic--inserted 02/12/20 @ [facility] Osteoporosis DVT prophylaxis Adjustment disorder with depressed mood Eustachian tube dysfunction Mild cognitive impairment Rosacea Surgical History History of cardiac pacemaker meditronic--inserted 02/12/20 @ [facility]--follows with Dr. Valadez History of colonoscopy History of foot surgery (~2015) left foot cyst removal History of removal of cyst drained off eye History of total left knee replacement (TKR) (~03/2007) History of total right knee replacement (TKR) (~2009) History of wisdom tooth extraction S/P abdominal hysterectomy humphrey bso S/P cholecystectomy Family History Mother Colon cancer Cancer Father Colon cancer Lung cancer Cancer Other No family history of adverse response to anesthesia Social History Smoking Status: Never smoker Tobacco Type: Cigarettes Age Quit Using Tobacco: 44; packs per day: 1; Second Hand Exposure: No; Do You Dip or Chew Tobacco: No; Hx Alcohol Use: No Hx Substance Use: No Preferred Language: Bulgarian Communication Ability: Effective Floriculturist Required: No Beliefs That Will Affect Care: None marital status: Current Living Situation: Spouse current occupational status: retired How many Children do You have: 2 Feels Safe at Home: Yes Assistive Devices: Glasses Allergies Allergies Allergy/AdvReac Type Severity Reaction Status Date / Time ciprofloxacin Allergy Mild rash Verified 07/14/23 17:54 Home Meds Home Medications Medication Instructions Recorded Confirmed alendronate 70 mg tablet 70 mg PO WK 01/09/19 07/14/23 multivitamin (Multiple Vitamins 1 tab PO QAM 01/09/19 07/14/23 tablet) loperamide 2 mg tablet 2 mg PO BID 01/20/20 07/14/23 calcium carbonate 600 mg-vitamin 1 tab PO QAM 02/08/20 07/14/23 D3 10 mcg (400 unit) tablet (Calcium 600 + D(3)) calcium 650 mg-vitamin D3 12.5 1 tab PO QAM 10/01/20 07/14/23 mcg-vitamin K 40 mcg chewable tablet (Viactiv) acetaminophen 500 mg tablet 500 mg PO Q6H PRN Pain 07/12/21 07/14/23 (Tylenol Extra Strength) meclizine 12.5 mg tablet 12.5 mg PO TID PRN Dizziness 07/18/22 07/14/23 Previous Rx's Medication Instructions Recorded trazodone 50 mg tablet 25 mg (1/2 x 50 mg) PO HS 90 days 10/16/21 #45 tabs apixaban 5 mg tablet (Eliquis) 5 mg PO BID #180 tabs 04/07/22 metoprolol succinate 50 mg 50 mg PO DAILY #90 tabs 05/19/22 tablet,extended release 24 hr topiramate 50 mg tablet 50 mg PO BID 30 days #60 tabs 07/11/22 oxycodone 5 mg tablet 5 mg PO Q6H PRN pain #7 tabs 07/13/23 oxycodone 5 mg tablet 5 mg PO Q6H PRN pain #7 tabs 07/14/23 Results & Data (ED) Vital Signs Vital Signs - 24 hr 07/14/23 15:13 07/14/23 15:13 07/14/23 16:37 Temperature 36.5 C Temperature Source Temporal Artery Scan Pulse Rate 84 80 Respiratory Rate 18 Blood Pressure 208/99 H Blood Pressure Mean 135 Pulse Oximetry 97 Oxygen Delivery Method Room Air Sepsis Recent Fever Within 48 Hours No Sepsis New/Unexplained Change in Mental Status N/A Sepsis Action Taken by Nursing No Action Required Home Medications Current Medication List: was personally reviewed by me Laboratory Data Attestation: I reviewed the patient's lab results. 07/14/23 15:40 07/14/23 15:40 Lab Results 07/14/23 07/14/23 07/14/23 Range/Units 15:39 15:40 15:47 WBC 5.71 (4.8-10.8) K/ul RBC 4.75 (4.20-5.40) M/uL Hgb 15.6 (12.0-16.0) g/dl POC Hgb 15.3 (12.0-16.0) g/dl Hct 44.8 (37.0-47.0) % POC Hct 45 (37-47) % MCV 94.3 (80.0-100.0) fL MCH 32.8 (25.0-34.0) pg MCHC 34.8 (32.0-36.0) g/dL RDW Std Deviation 45.2 (36.4-46.3) fL RDW Coeff of Dave 12.9 (11.5-14.5) % Plt Count 160 (130-400) K/uL MPV 11.3 (9.4-12.4) fL Immature Gran % (Auto) 0.4 % Neut % (Auto) 68.3 % Lymph % (Auto) 22.6 % [place] % (Auto) 7.7 % Eos % (Auto) 0.5 % Baso % (Auto) 0.5 % Neut # (Auto) 3.90 (1.40-6.50) K/uL Lymph # (Auto) 1.29 (1.20-3.40) K/uL [place] # (Auto) 0.44 (0.11-0.59) K/uL Eos # (Auto) 0.03 (0.00-0.50) K/uL Baso # (Auto) 0.03 (0.00-0.20) K/uL Immature Gran # (Auto) 0.02 (0.01-0.20) K/uL PT Cancelled INR Cancelled APTT Cancelled PTT Ratio Cancelled POC Sodium 138 (135-144) mmol/L Sodium 136 (136-145) mmol/L POC Potassium 4.4 (3.3-5.0) mmol/L Potassium 4.5 (3.5-5.1) mmol/L POC Chloride 108 (101-112) mmol/L Chloride 106 (98-107) mmol/L Carbon Dioxide 19 L (21-32) mmol/L POC Total CO2 21 L (24-31) mmol/L Anion Gap 11 (3-11) POC Anion Gap 15.0 L (16-25) mmol/L POC BUN 12 (7-18) mg/dl BUN 12 (6-23) mg/dl Creatinine 0.69 (0.6-1.2) mg/dl POC Creatinine 0.6 (0.6-1.3) mg/dl Est Cr Clr Drug Dosing Not Reportable Est GFR ( Amer) 96.0 ml/min Est GFR (Non-Af Amer) 82.8 ml/min BUN/Creatinine Ratio 17.4 (10-20) Glucose 108 H (70-99(Fasting)) mg/dl POC Glucose 112 H (70-99) mg/dl POC Glucose (other) 110 H (70-99) mg/dl Calcium 9.8 (8.6-10.3) mg/dl POC Ioniz Calcium Anastasiia 1.20 (1.12-1.32) mmol/l Magnesium 2.2 (1.7-2.4) mg/dl Total Bilirubin 1.1 H (0.2-1.0) mg/dl AST 19 (13-39) U/L ALT 9 (7-52) U/L Alkaline Phosphatase 65 (34-104) U/L Troponin I High Sens 5.7 (0-14) pg/ml Total Protein 8.2 (6.0-8.3) gm/dl Albumin 4.9 (3.4-5.0) gm/dl Globulin 3.3 (2.5-4.0) gm/dl Albumin/Globulin Ratio 1.5 (0.9-2) Urine Color Urine Appearance (Clear) Urine pH (4.5-7.5) Ur Specific [place] (1.000-1.030) Urine Protein (Negative) Urine Glucose (UA) (Negative) Urine Ketones (Negative) Urine Blood (Negative) Urine Nitrite (Negative) Urine Bilirubin (Negative) Urine Urobilinogen (Negative) Ur Leukocyte Esterase (Negative) Urine WBC (Auto) (0-5) /hpf Urine RBC (Auto) (0-4) /hpf U Hyaline Cast (Auto) (0-5) /lpf U Epithel Cells (Auto) (0-5) /lpf Urine Bacteria (Auto) (Negative) 07/14/23 Range/Units 17:26 WBC (4.8-10.8) K/ul RBC (4.20-5.40) M/uL Hgb (12.0-16.0) g/dl POC Hgb (12.0-16.0) g/dl Hct (37.0-47.0) % POC Hct (37-47) % MCV (80.0-100.0) fL MCH (25.0-34.0) pg MCHC (32.0-36.0) g/dL RDW Std Deviation (36.4-46.3) fL RDW Coeff of Dave (11.5-14.5) % Plt Count (130-400) K/uL MPV (9.4-12.4) fL Immature Gran % (Auto) % Neut % (Auto) % Lymph % (Auto) % [place] % (Auto) % Eos % (Auto) % Baso % (Auto) % Neut # (Auto) (1.40-6.50) K/uL Lymph # (Auto) (1.20-3.40) K/uL [place] # (Auto) (0.11-0.59) K/uL Eos # (Auto) (0.00-0.50) K/uL Baso # (Auto) (0.00-0.20) K/uL Immature Gran # (Auto) (0.01-0.20) K/uL PT INR APTT PTT Ratio POC Sodium (135-144) mmol/L Sodium (136-145) mmol/L POC Potassium (3.3-5.0) mmol/L Potassium (3.5-5.1) mmol/L POC Chloride (101-112) mmol/L Chloride (98-107) mmol/L Carbon Dioxide (21-32) mmol/L POC Total CO2 (24-31) mmol/L Anion Gap (3-11) POC Anion Gap (16-25) mmol/L POC BUN (7-18) mg/dl BUN (6-23) mg/dl Creatinine (0.6-1.2) mg/dl POC Creatinine (0.6-1.3) mg/dl Est Cr Clr Drug Dosing Est GFR ( Amer) ml/min Est GFR (Non-Af Amer) ml/min BUN/Creatinine Ratio (10-20) Glucose (70-99(Fasting)) mg/dl POC Glucose (70-99) mg/dl POC Glucose (other) (70-99) mg/dl Calcium (8.6-10.3) mg/dl POC Ioniz Calcium Anastasiia (1.12-1.32) mmol/l Magnesium (1.7-2.4) mg/dl Total Bilirubin (0.2-1.0) mg/dl AST (13-39) U/L ALT (7-52) U/L Alkaline Phosphatase (34-104) U/L Troponin I High Sens (0-14) pg/ml Total Protein (6.0-8.3) gm/dl Albumin (3.4-5.0) gm/dl Globulin (2.5-4.0) gm/dl Albumin/Globulin Ratio (0.9-2) Urine Color Yellow Urine Appearance Clear (Clear) Urine pH 7.5 (4.5-7.5) Ur Specific [place] 1.020 (1.000-1.030) Urine Protein Negative (Negative) Urine Glucose (UA) Negative (Negative) Urine Ketones Trace H (Negative) Urine Blood Trace H (Negative) Urine Nitrite Positive A (Negative) Urine Bilirubin Negative (Negative) Urine Urobilinogen Negative (Negative) Ur Leukocyte Esterase 1+ H (Negative) Urine WBC (Auto) >30 H (0-5) /hpf Urine RBC (Auto) 0-4 (0-4) /hpf U Hyaline Cast (Auto) 1-5 (0-5) /lpf U Epithel Cells (Auto) 0-5 (0-5) /lpf Urine Bacteria (Auto) 1+ H (Negative) Administered Medications Discontinued Medications Sodium Chloride (Nss) 500 mls @ 999 mls/hr IV .Q31M ONE Stop: 07/14/23 16:37 Last Infusion: 07/14/23 17:23 Dose: Infused Documented By: Admin: 07/14/23 16:48 Dose: 999 mls/hr Documented By: EDITA Acetaminophen (Ofirmev) 1,000 mg in 100 mls @ 400 mls/hr IV NOW STA Stop: 07/14/23 16:21 Last Infusion: 07/14/23 17:23 Dose: Infused Documented By: Admin: 07/14/23 16:48 Dose: 400 mls/hr Documented By: EDITA Ioversol (Optiray 320 125ml) 116 ml IV ONCE ONE Stop: 07/14/23 16:27 Last Admin: 07/14/23 16:27 Dose: 116 ml Documented By: SOBEIDA Imaging Data Radiologist's Impression: Head CT 07/14/23 15:[address] DOSE: HISTORY: neuro deficit, acute stroke suspected TECHNIQUE: Multiaxial CT images of the head were performed without the use of intravenous contrast. Automated exposure control was utilized for this study. A dose lowering technique was utilized adhering to the principles of ALARA. Comparison: Head CT and cervical spine CT 07/13/2023.. Findings: The paranasal sinuses and mastoid air cells are clear. The calvarium and skull base are intact. There is no mass, hematoma, midline shift, acute infarct. White matter hypodensity is nonspecific but suggestive of microvascular ischemic change. The ventricles and sulci demonstrate mild age-related involutional changes. Nondisplaced right C1 fracture again noted. Impression: 1. No acute infarct or intracranial hemorrhage. 2. Nondisplaced right C1 fracture again noted. ACT 112: Negative or not required by law. Electronically signed by: Kirill Forde M.D. 07/14/2023 4:57 PM Head CTA 07/14/23 15:18 HEAD CTA HISTORY: neuro deficit, acute stroke suspected TECHNIQUE: Multiaxial CT images of the head were performed both before and after the intravenous administration of contrast to evaluate the major cerebral vessels. 3D/MIP images were also obtained. Sagittal and coronal reformats were reviewed. A dose lowering technique was utilized adhering to the principles of ALARA. COMPARISON: Head CT 07/13/2023. Head CTA 09/29/2020. FINDINGS: There is no mass, hematoma, midline shift, or acute infarct. Visualized intracranial internal carotid arteries, distal vertebral arteries, and basilar artery are widely patent. There is no significant stenosis, occlusion, or aneurysm seen within the bilateral ACAs, MCAs, or speech language pathology assistant. Nondisplaced right C1 fracture again noted. The major dural venous sinuses are patent. Mild calcified plaque within the bilateral carotid siphons. IMPRESSION: 1. No significant stenosis, occlusion, or aneurysm within the [place]. 2. Nondisplaced right C1 fracture again noted. ACT 112: Negative or not required by law. Electronically signed by: Kirill Forde M.D. 07/14/2023 5:00 PM Neck CTA 07/14/23 15:18 CT ANGIOGRAPHY OF THE NECK WITH CONTRAST CLINICAL HISTORY: neuro deficit, acute stroke suspected COMPARISON STUDY: CTA of the neck September 29, 2020. Cervical spine CT July 13, 2023. Technique: CT angiography of the carotid and vertebral arteries was obtained using Optiray and 3D reconstruction on an independent workstation. NASCET criteria was utilized. Automated exposure control was utilized for the study. A dose lowering technique was utilized adhering to the principles of ALARA. CT DOSE: 974.43 mGy.cm Findings: A right lobe thyroid nodule is again noted. An acute nondisplaced fracture of the right lateral mass of C1 is unchanged since CT of July 13, 2023. No additional acute cervical spine fractures are identified. The bilateral common carotid, cervical internal carotid and vertebral arteries are patent. There is moderate plaque within the carotid bifurcations without stenosis. There is no aneurysm or dissection within the neck IMPRESSION: 1. No stenosis or dissection within the bilateral common carotid, cervical internal carotid or vertebral arteries. Moderate atherosclerotic plaque within the carotid bifurcations. 2. No change in alignment of an acute nondisplaced fracture of the right lateral mass of C1. ACT 112: Negative or not required by law. Electronically signed by: Piotr Dobbs M.D. 07/14/2023 4:50 PM Discharge Plan Visit Data Chief Complaint: Altered Mental Status Stated Complaint: COMPLAINING HEADACHE ALL DAY/CONFUSED ED Provider: Beto Hackett Discharge Problem: Confusion, Fall, Closed C1 fracture, Wrist fracture, bilateral, Acute UTI Patient Disposition: Admitted As Inpatient Condition: Fair Forms Stand Alone Forms: [employer] Prescriptions Prescriptions: No Action trazodone 50 mg tablet 25 mg PO HS 90 Days Qty: 45 1RF Eliquis 5 mg tablet 5 mg PO BID Qty: 180 3RF metoprolol succinate 50 mg tablet extended release 24 hr 50 mg PO DAILY Qty: 90 3RF topiramate 50 mg tablet 50 mg PO BID 30 Days Qty: 60 2RF Rx Instructions: For tremor and vertigo/headaches meclizine 12.5 mg tablet 12.5 mg PO TID PRN (Reason: Dizziness) alendronate 70 mg tablet 70 mg PO WK Rx Instructions: on multivitamin [Multiple Vitamins] tablet 1 tab PO QAM calcium carbonate-vitamin D3 [Calcium 600 + D(3)] 600 mg(1,500mg) -400 unit Tablet 1 tab PO QAM loperamide 2 mg Tablet 2 mg PO BID calcium-vitamin D3-vitamin K [Viactiv] 650 mg-12.5 mcg-40 mcg Tablet,Chewable 1 tab PO QAM acetaminophen [Tylenol Extra Strength] 500 mg tablet 500 mg PO Q6H PRN (Reason: Pain) oxycodone 5 mg tablet 5 mg PO Q6H PRN (Reason: pain) Qty: 7 0RF Rx Instructions: Initial Treatment oxycodone 5 mg tablet 5 mg PO Q6H PRN (Reason: pain) Qty: 7 0RF Rx Instructions: Initial Treatment Referrals Referrals: Sharron Garza CRNP [Primary Care Provider] - Discharge Problem: Fall Qualifiers: Encounter type: subsequent encounter Qualified Code(s): W19.XXXD - Unspecified fall, subsequent encounter Closed C1 fracture Qualifiers: Encounter type: subsequent encounter Fracture morphology: unspecified fracture morphology Fracture alignment: nondisplaced Fracture healing: with routine healing Qualified Code(s): S12.001D - Unspecified nondisplaced fracture of first cervical vertebra, subsequent encounter for fracture with routine healing Wrist fracture, bilateral Qualifiers: Encounter type: subsequent encounter Fracture type: closed Fracture healing: w ith routine healing Qualified Code(s): S62.101D - Fracture of unspecified carpal bone, right wrist, subsequent encounter for fracture with routine healing
[2023-07-14 16:20] LABS: Troponin I High Sensitivity 5.7 pg/ml (0-14)
[2023-07-14] MEDS: OPTIRAY 320 125ml IV ONE (16:27)
[2023-07-14] MEDS: ACETAMINOPHEN 1,000 MG/100 ML VIAL IV STA (16:48)
[2023-07-14] MEDS: SODIUM CHLORIDE 0.9% 500 ML IV ONE ×2 (16:48→18:41)
--- NOTE | 2023-07-14 16:52 | CT Scan Report ---
CT ANGIOGRAPHY OF THE NECK WITH CONTRAST CLINICAL HISTORY: neuro deficit, acute stroke suspected COMPARISON STUDY: CTA of the neck September 29, 2020. Cervical spine CT July 13, 2023. Technique: CT angiography of the carotid and vertebral arteries was obtained using Optiray and 3D rec onstruction on an independent workstation. NASCET criteria was utilized. Automated exposure control was utilized for the study. A dose lowering technique was utilized adhering to the principles of ALA RA. CT DOSE: 974.43 mGy.cm Findings: A right lobe thyroid nodule is again noted. An acute nondisplaced fracture of the right lat eral mass of C1 is unchanged since CT of July 13, 2023. No additional acute cervical spine fractures are identified. The bilateral common carotid, cervical internal carotid and vertebral arteries are p atent. There is moderate plaque within the carotid bifurcations without stenosis. There is no aneurys m or dissection within the neck IMPRESSION: 1. No stenosis or dissection within the bilateral common carotid, cervical internal carotid or verteb ral arteries. Moderate atherosclerotic plaque within the carotid bifurcations. 2. No change in alignment of an acute nondisplaced fracture of the right lateral mass of C1. ACT 112: Negative or not required by law. Electronically signed by: Piotr Dobbs M.D. 07/14/2023 4:50 PM
--- NOTE | 2023-07-14 16:59 | CT Scan Report ---
HEAD CT NONCONTRAST CT DOSE: HISTORY: neuro deficit, acute stroke suspected TECHNIQUE: Multiaxial CT images of the head were performed without the use of intravenous contrast. A utomated exposure control was utilized for this study. A dose lowering technique was utilized adheri ng to the principles of ALARA. Comparison: Head CT and cervical spine CT 07/13/2023.. Findings: The paranasal sinuses and mastoid air cells are clear. The calvarium and skull base are int act. There is no mass, hematoma, midline shift, acute infarct. White matter hypodensity is nonspecifi c but suggestive of microvascular ischemic change. The ventricles and sulci demonstrate mild age-rela zhang involutional changes. Nondisplaced right C1 fracture again noted. Impression: 1. No acute infarct or intracranial hemorrhage. 2. Nondisplaced right C1 fracture again noted. ACT 112: Negative or not required by law. Electronically signed by: Kirill Forde M.D. 07/14/2023 4:57 PM
--- NOTE | 2023-07-14 17:01 | CT Scan Report ---
HEAD CTA HISTORY: neuro deficit, acute stroke suspected TECHNIQUE: Multiaxial CT images of the head were performed both before and after the intravenous admi nistration of contrast to evaluate the major cerebral vessels. 3D/MIP images were also obtained. Sag ittal and coronal reformats were reviewed. A dose lowering technique was utilized adhering to the ezequiel Christianson. COMPARISON: Head CT 07/13/2023. Head CTA 09/29/2020. FINDINGS: There is no mass, hematoma, midline shift, or acute infarct. Visualized intracranial intelligence intern al carotid arteries, distal vertebral arteries, and basilar artery are widely patent. There is no sig nificant stenosis, occlusion, or aneurysm seen within the bilateral ACAs, MCAs, or posting clerk. Nondisplaced right C1 fracture again noted. The major dural venous sinuses are patent. Mild calcified plaque with in the bilateral carotid siphons. IMPRESSION: 1. No significant stenosis, occlusion, or aneurysm within the [place]. 2. Nondisplaced right C1 fracture again noted. ACT 112: Negative or not required by law. Electronically signed by: Kirill Forde M.D. 07/14/2023 5:00 PM
[2023-07-14 17:43] LABS: Appearance Urine Clear (Clear); Bacteria Urine Automated 1+ (Negative); Bilirubin Urine Negative (Negative); Blood Urine Trace (Negative); Color Urine Yellow; Epithelial Cell Urine Auto 0-5 /lpf (0-5); Glucose Urine UA Negative (Negative); Ketones Urine Trace (Negative); Leukocyte Esterase Urine 1+ (Negative); Nitrite Urine Positive (Negative); Protein Urine Negative (Negative); RBC Urine Automated 0-4 /hpf (0-4); Urobilinogen Urine Negative (Negative); WBC Urine Automated >30 /hpf (0-5); pH Urine 7.5 (4.5-7.5)
[2023-07-14] MEDS: cefTRIAXone SODIUM 2,000 MG/50 ML BAG IV STA (18:42)
--- NOTE | 2023-07-14 18:43 | History & Physical Report ---
Date of Service July 14, 2023 Assessment & Plan (1) Altered mental status: Plan: - Increased confusion, issues with putting sentences together, refusing to take medications - Stroke less likely given no focal neurological deficits on exam, head CT, CTA head/neck without acute findings. - Concussion possible given recent fall, C1 fracture - UA concerning for UTI; acute encephalopathy in the setting of UTI- antibiotics as per below - Superimposed delirium in the setting of chronic dementia also possible - Thyroid nodule noted on imagining; check TSH, T4 - held trazodone/oxycodone on admission due to AMS (2) Acute UTI: Plan: - UA consistent with UTI, unable to give clear answer as to whether or not she is symptomatic - Given ceftriaxone in the ED, no prior cultures for comparison; Plan to continue ceftriaxone pending culture (3) Wrist fracture, bilateral: Plan: - B/L distal radius fracture noted on XR from 07/12 - Wrists splinted B/L - Will need outpatient f/u; apt 07/16 (4) Closed C1 fracture: Plan: - noted on CT from 07/12 - case was discussed with Dr. Cardona 07/12;plan for outpatient f/u- apt 07/18 - Plan to continue with soft cervical collar as she did not tolerate [place] J collar (5) Fall: Plan: - unwitnessed fall resulting in C1 fracture and B/L distal radius fracture; questionable mechanical in nature per pt, but with her history of dementia she is a poor historian - pacemaker integrated 07/12 without events surrounding time of fall - Fall precautions (6) Atrial fibrillation with RVR: Plan: - continue Eliquis, metoprolol (7) Pacemaker: Plan: - interrogated in the ED 07/12 and no events noted around time of unwitnessed fall - was placed for tachybradycardia syndrome (8) Tremor: Plan: - on topiramate for tremor, migraine; plan to continue Plan Diet: heart healthy VTE Prophylaxis: Eliquis Code: DNR/DNI History of Present Illness Primary Care Provider: EMILEE Khan 78 year female with a past medical history of dementia, A fib w/ RVR on Eliquis, tachybradycardia syndrome s/p pacemaker, tremor, migraine, osteoporosis presenting with increased confusion. Is at memory care at [facility]. Her partner was at bedside and aided in providing history. Was seen in the ED yesterday after an unwitnessed fall. Pt does not remember what happened. She was found sitting on the ground with her hands behind her back. Yesterday in the ED she was found to have B/L distal radius fracture, C1 fracture. She was d/c back to [facility]. This morning nursing at [facility] noted increased confusion, was only putting together 3-5 word sentences, would not take her medications. Her partner states that she has not taken any of her medications since the morning of 07/12. She was given a script for oxycodone after ED visit 07/12, but did not take any. Charleen states that her only complaint is intermittent frontal headache. Denies weakness, chest pain, dyspnea, nausea/vomiting, fever/chills, vision changes. ED work significant for: Head CT, CTA Head/Neck without acute pathology. UA +blood, nitrites, LE. Was given 1.5L IVF, ceftriaxone. Allergies Allergy/AdvReac Type Severity Reaction Status Date / Time ciprofloxacin Allergy Mild rash Verified 07/14/23 17:54 Home Medications Medication Instructions Recorded Confirmed Type alendronate 70 mg tablet 70 mg PO WK 01/09/19 07/14/23 History multivitamin (Multiple Vitamins 1 tab PO QAM 01/09/19 07/14/23 History tablet) loperamide 2 mg tablet 2 mg PO BID 01/20/20 07/14/23 History calcium carbonate 600 mg-vitamin 1 tab PO QAM 02/08/20 07/14/23 History D3 10 mcg (400 unit) tablet (Calcium 600 + D(3)) calcium 650 mg-vitamin D3 12.5 1 tab PO QAM 10/01/20 07/14/23 History mcg-vitamin K 40 mcg chewable tablet (Viactiv) acetaminophen 500 mg tablet 500 mg PO Q6H PRN Pain 07/12/21 07/14/23 History (Tylenol Extra Strength) trazodone 50 mg tablet 25 mg (1/2 x 50 mg) PO HS 90 days 10/16/21 07/14/23 Rx #45 tabs apixaban 5 mg tablet (Eliquis) 5 mg PO BID #180 tabs 04/07/22 07/14/23 Rx metoprolol succinate 50 mg 50 mg PO DAILY #90 tabs 05/19/22 07/14/23 Rx tablet,extended release 24 hr topiramate 50 mg tablet 50 mg PO BID 30 days #60 tabs 07/11/22 07/14/23 Rx meclizine 12.5 mg tablet 12.5 mg PO TID PRN Dizziness 07/18/22 07/14/23 History oxycodone 5 mg tablet 5 mg PO Q6H PRN pain #7 tabs 07/13/23 07/14/23 Rx oxycodone 5 mg tablet 5 mg PO Q6H PRN pain #7 tabs 07/14/23 07/14/23 Rx Past Med/Surg History Medical History Frequent diarrhea Multiple thyroid nodules scheduled for biopsy of thyroid 12/30/20 @ [facility] Tremor Anticoagulant long-term use eliquis bid Soft tissue mass Dementia Seasonal allergies Paroxysmal atrial fibrillation on eliquis daily--follows with Dr. Valadez Pacemaker meditronic--inserted 02/12/20 @ [facility] Osteoporosis DVT prophylaxis Adjustment disorder with depressed mood Eustachian tube dysfunction Mild cognitive impairment Rosacea Surgical History History of cardiac pacemaker meditronic--inserted 02/12/20 @ [facility]--follows with Dr. Valadez History of colonoscopy History of foot surgery (~2015) left foot cyst removal History of removal of cyst drained off eye History of total left knee replacement (TKR) (~03/2007) History of total right knee replacement (TKR) (~2009) History of wisdom tooth extraction S/P abdominal hysterectomy humphrey bso S/P cholecystectomy Family History Mother Colon cancer Cancer Father Colon cancer Lung cancer Cancer Other No family history of adverse response to anesthesia Social History Smoking Status: Never smoker Tobacco Type: Cigarettes Age Quit Using Tobacco: 44; packs per day: 1; Second Hand Exposure: No; Do You Dip or Chew Tobacco: No; Hx Alcohol Use: No Hx Substance Use: No Preferred Language: Croatian Communication Ability: Effective 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: No Beliefs That Will Affect Care: None marital status: Current Living Situation: Spouse current occupational status: retired How many Children do You have: 2 Feels Safe at Home: Yes Assistive Devices: Glasses Review of Systems Review of Systems: As per above Physical Exam Physical Exam: Constitutional: well-appearing, no acute distress HEENT: NCAT, no conjunctival injection CV: regular rhythm, no murmur appreciated, extremities well-perfused, no LE edema Resp: CTABL, no wheezes/rales/rhonchi appreciated, no increased work of breathing GI: soft, nondistended, nontender, BS normoactive MSK: no gross deformities appreciated. B/L wrists splinted, soft cervical collar in place Skin: warm, dry, no rash appreciated Neuro: alert, oriented, no focal neurologic deficit appreciated. CN II-XII intact, strength 5/5 in UE and LE B/L. Results & Data Results & Data Vital Signs (Past 12 Hours) Vital Signs Temp Pulse Resp BP Pulse Ox O2 Del Method 07/14/23 16:37 80 07/14/23 15:13 Room Air 07/14/23 15:13 36.5 C 84 18 208/99 H 97 Supervising Physician Co-Signing Physician Notes Patient seen and examined, chart reviewed, case discussed with Jessica Bedoya and I agree with the assessment and plan as above except as otherwise noted Labs and images reviewed 78-year-old female with past medical history of A-fib RVR on anticoagulation, dementia, tachybradycardia syndrome s/p pacemaker, tremor is an unreliable historian but whose partner gives collateral to was seen in the ER after a fall. Yesterday she had a fall with a C1 fracture, bilateral distal radial fractures. Case was discussed with orthopedic spine, was recommended for a [place] J collar however patient was not tolerant of this and subsequent to this and was okay to be placed in a soft collar which she has been tolerating. Unfortunately patient had increase in confusion after return to [facility] and has presented to the ER. She is found to have a UTI on admission. Patient is otherwise nondistressed and denies fever, chills, sweats, chest pain, dyspnea, lightheadedness, dizziness. CT of the head and neck were unremarkable, UA is infected appearing. She is admitted on ceftriaxone. She should be continued in her cervical collar at all time, there are no new focal neurologic deficits. At bedside assessment she has intact director of exhibits strength, and sensation in her hands is intact and symmetrical bilaterally, no new facial droop or other strokelike symptoms. She has scheduled follow-up with both orthospine Dr. Cardona and also with orthopedics for her wrist fractures in the coming week. Resident Activity Tracking Resident Involvement: Resident Care Provided Care Provided: [facility] (3) Wrist fracture, bilateral Encounter type: subsequent encounter Fracture healing: with routine healing Fracture type: closed Qualified Code(s): S62.101D - Fracture of unspecified carpal bone, right wrist, subsequent encounter for fracture with routine healing; S62.102D - Fracture of unspecified carpal bone, left wrist, subsequent encounter for fracture with routine healing (4) Closed C1 fracture Encounter type: subsequent encounter Fracture alignment: nondisplaced Fracture healing: with routine healing Fracture morphology: unspecified fracture morphology Qualified Code(s): S12.001D - Unspecified nondisplaced fracture of first cervical vertebra, subsequent encounter for fracture with routine healing (5) Fall Encounter type: subsequent encounter Qualified Code(s): W19.XXXD - Unsp ecified fall, subsequent encounter
--- NOTE | 2023-07-14 18:43 | XRay Report ---
XR chest 1V portable HISTORY: Altered mental status. Fall. COMPARISON: Chest 09/29/2020. FINDINGS: There are low lung volumes. No pneumothorax. No pleural effusions. Mild chronic interstitia l thickening remains unchanged. No new focal lung consolidations to suggest a pneumonia. No evidence for pulmonary edema. Is left-sided dual-chamber pacemaker. The heart is normal in size. No acute frac tures identified. IMPRESSION: No significant change compared to the prior study. No acute process. ACT 112: Negative or not required by law. Electronically signed by: Kirill Forde M.D. 07/14/2023 6:42 PM
[2023-07-14] MEDS: ACETAMINOPHEN 325 MG TAB PO PRN (20:10)
[2023-07-14] MEDS ORDERED: Patient's HEIGHT &/or WEIGHT Needed SCH (20:45)
[2023-07-14] MEDS: traZODone HCL 50 MG TAB PO SCH (22:38)
[2023-07-14] MEDS: TOPIRAMATE 50 MG TAB PO SCH (22:38)
[2023-07-15 07:01] LABS: Basophils # (auto) 0.03 K/uL (0.00-0.20); Basophils % (auto) 0.5 %; Eosinophils # (auto) 0.06 K/uL (0.00-0.50); Eosinophils % (auto) 1.1 %; Hematocrit (blood only) 39.4 % (37.0-47.0); Hemoglobin 13.6 g/dl (12.0-16.0); Lymphocytes # (auto) 1.64 K/uL (1.20-3.40); Lymphocytes % (auto) 29.6 %; Mean Corpuscular Hemoglobin 32.7 pg (25.0-34.0); Mean Corpuscular Hgb Conc 34.5 g/dL (32.0-36.0); Mean Corpuscular Volume 94.7 fL (80.0-100.0); Mean Platelet Volume 11.6 fL (9.4-12.4); Monocytes % (auto) 10.8 %; Neutrophils # (auto) 3.21 K/uL (1.40-6.50); Platelet Count 123 K/uL (130-400); RDW Coefficient of Variation 12.9 % (11.5-14.5); Red Blood Count 4.16 M/uL (4.20-5.40); White Blood Count 5.54 K/ul (4.8-10.8)
[2023-07-15 07:15] LABS: Albumin Globulin Ratio 1.9 (0.9-2); Albumin Level 4.1 gm/dl (3.4-5.0); Bilirubin,Total 0.9 mg/dl (0.2-1.0); Calcium 8.7 mg/dl (8.6-10.3); Creatinine Clr Calc Pharmacy 73.9 ml/min; Est GFR (African American) 100.5 ml/min; Est GFR (Non-African American) 86.7 ml/min; Globulin 2.2 gm/dl (2.5-4.0); Phosphorus 2.9 mg/dl (2.5-4.9); Potassium 3.6 mmol/L (3.5-5.1); Total Protein 6.3 gm/dl (6.0-8.3)
[2023-07-15 07:34] LABS: T4 Free Thyroxine 0.92 ng/dl (0.61-1.60); Thyroid Stimulating Hormone 0.054 uIu/ml (0.300-4.500)
--- NOTE | 2023-07-15 08:38 | Electrocardiogram Report ---
Test Reason : Blood Pressure : / mmHG Vent. Rate : 083 BPM Atrial Rate : 083 BPM P-R Int : 166 ms QRS Dur : 104 ms QT Int : 382 ms P-R-T Axes : 074 017 074 degrees QTc Int : 448 ms Normal sinus rhythm Nonspecific ST abnormality Abnormal ECG When compared with ECG of 01-OCT-2020 10:58, Sinus rhythm has replaced Electronic atrial pacemaker Confirmed by Rinku Rodriguez ([id number]) on 07/15/2023 8:38:04 AM Referred By: Confirmed By:Rinku Rodriguez
[2023-07-15] MEDS: METOPROLOL SUCC 50MG EXT REL TAB PO SCH (08:58)
[2023-07-15] MEDS: CALCIUM 600MG + VIT D 400 IU TAB PO SCH (08:58)
[2023-07-15] MEDS: MULTIVITAMIN TAB PO SCH (08:58)
[2023-07-15] MEDS: APIXABAN 5 MG TABLET PO SCH (08:59)
--- NOTE | 2023-07-15 11:26 | Hospitalist Progress Note ---
Date of Service July 15, 2023 Assessment & Plan (1) Altered mental status: Plan: 2nd to UTI I also suspect some element of head injury (which led to her C1 fracture) which could also be contributing She had headache today - easily could have concussion All head imaging without ICH, acute stroke, etc Rx the UTI Avoid sedatives Melatonin 3mg HS to support sleep-wake cycles She has severe, baseline dementia and lives in memory unit at [facility] (2) Numbness of left hand: Plan: Suspect due to nerve contusion of median nerve as a result of her distal radius fracture I reviewed her C-spine imaging with radiology and there is no pathology at the lower cervical spine levels to account for the numbness If any worsening or loss of function consider MRI cervical spine, etc (3) Closed fracture of right distal radius and ulna: Plan: 2nd unwitnessed fall s/p splint on 07/13/23 in ER I corresponded with on-call orthopedics needs to be seen in the office this week for definitive Rx pain control with tylenol 1gm TID scheduled check 25-OH vit D level in am (4) Closed fracture of left distal radius: Plan: 2nd unwitnessed fall evaluated in ER on 07/12 s/p splinting spouse reports she has outpatient visit scheduled on 07/16 for evaluation but it is with sports medicine? (5) Acute UTI: Plan: 2nd GNR suspect this was brewing around the time of her fall which may have precipitated her fall cont rocephin 1gm daily follow cx (6) Closed C1 fracture: Plan: soft collar in place I corresponded with Dr Cardona from ortho-spine ok to remove collar for meals & grooming otherwise keep in place at all times has f/u appt 07/[address] Cardona by report she initially was in a [place] J collar on 07/12 but did not tolerate it (kept trying to remove it, etc) (7) Fall: Plan: pacemaker integrated 07/12 without events surrounding time of fall PT, OT evals check a B12 level CT head and CTAs head/neck without pathology to account for the fall may have been precipitated by brewing UTI (8) Atrial fibrillation with RVR: Plan: cont metoprolol hold Eliquis due to numbness complaints and out of precaution in case there is localized bleeding causing compression (9) Pacemaker: Plan: Interrogated in the ED 07/12 and no events noted around time of unwitnessed fall 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 (10) Tremor: Plan: on topiramate for tremor, migraine prevention by report (11) Thrombocytopenia: Plan: etiology? consumptive in setting of b/l radial fractures? other? check b12/folate in am (12) Dementia: Plan: advanced (13) Multiple thyroid nodules: Plan: TSH suppressed FT4 is normal should simply be repeated as outpatient has had biopsy in the past has a dominant R sided nodule Plan DVT proph - eliquis, but hold for now needs PT/OT evals spouse updated at bedside today Admission and Anticipated Discharge Date Admission Date: July 14, 2023 Subjective tele overnight wnl patient was sitting up in bed during my rounds she was awake, alert but confused and multiple times unable to answer my questions with relevant answers she was not sure where she was she did not realize she had fractures of her neck, etc she denied any pain of her neck or arms only complaint was that of L 1st/2nd/3rd finger numbness eating fair 2nd visit - late afternoon - spouse was at bedside her spouse reports that at baseline she can recognize her and knows her name however, she is not oriented to place/time even when she is feeling her best she typically talks with complete sentences late in the day had mild frontal headache Review of Systems Review of Systems: Unobtainable due to cognitive status Physical Exam Physical Exam: gen - NAD, pleasant confusion neck - c-collar in place heart - RRR, s1 s2 lungs - CTA b/l abd - soft NT ND BS+ ext - no ankle edema, pulses 2+ b/l musculo - no evidence of trauma to her legs; no pain in either hip with passive ROM; b/l splints in place arms extending from elbows to hands; ecchymoses noted over several fingers of left hand; able to fiction and nonfiction author both 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 psych - oriented to person only neuro - able to lift both arms equally; no facial droop; 5/5 strength b/l legs Results & Data Results & Data Vital Signs (Past 12 Hours) Vital Signs Temp Pulse Pulse Resp BP Pulse Ox O2 Del Method 07/15/23 10:08 71 07/15/23 07:52 36.8 C 84 16 170/73 H 96 Room Air 07/15/23 03:28 36.6 C 92 H 20 153/75 H 97 Room Air Laboratory Results Laboratory Results - last 24 hr 07/14/23 07/14/23 07/14/23 15:39 15:40 15:47 WBC 5.71 RBC 4.75 Hgb 15.6 POC Hgb 15.3 Hct 44.8 POC Hct 45 MCV 94.3 MCH 32.8 MCHC 34.8 RDW Std Deviation 45.2 RDW Coeff of Dave 12.9 Plt Count 160 MPV 11.3 Immature Gran % (Auto) 0.4 Neut % (Auto) 68.3 Lymph % (Auto) 22.6 [place] % (Auto) 7.7 Eos % (Auto) 0.5 Baso % (Auto) 0.5 Neut # (Auto) 3.90 Lymph # (Auto) 1.29 [place] # (Auto) 0.44 Eos # (Auto) 0.03 Baso # (Auto) 0.03 Immature Gran # (Auto) 0.02 PT Cancelled INR Cancelled APTT Cancelled PTT Ratio Cancelled POC Sodium 138 Sodium 136 POC Potassium 4.4 Potassium 4.5 POC Chloride 108 Chloride 106 Carbon Dioxide 19 L POC Total CO2 21 L Anion Gap 11 POC Anion Gap 15.0 L POC BUN 12 BUN 12 Creatinine 0.69 POC Creatinine 0.6 Est Cr Clr Drug Dosing Not Reportable Est GFR ( Amer) 96.0 Est GFR (Non-Af Amer) 82.8 BUN/Creatinine Ratio 17.4 Glucose 108 H POC Glucose 112 H POC Glucose (other) 110 H Calcium 9.8 POC Ioniz Calcium Anastasiia 1.20 Phosphorus Magnesium 2.2 Total Bilirubin 1.1 H AST 19 ALT 9 Alkaline Phosphatase 65 Troponin I High Sens 5.7 Total Protein 8.2 Albumin 4.9 Globulin 3.3 Albumin/Globulin Ratio 1.5 TSH Free T4 Urine Color Urine Appearance Urine pH Ur Specific [place] Urine Protein Urine Glucose (UA) Urine Ketones Urine Blood Urine Nitrite Urine Bilirubin Urine Urobilinogen Ur Leukocyte Esterase Urine WBC (Auto) Urine RBC (Auto) U Hyaline Cast (Auto) U Epithel Cells (Auto) Urine Bacteria (Auto) 07/14/23 07/15/23 17:26 06:26 WBC 5.54 RBC 4.16 L Hgb 13.6 POC Hgb Hct 39.4 POC Hct MCV 94.7 MCH 32.7 MCHC 34.5 RDW Std Deviation 45.0 RDW Coeff of Dave 12.9 Plt Count 123 L MPV 11.6 Immature Gran % (Auto) 0.0 Neut % (Auto) 58.0 Lymph % (Auto) 29.6 [place] % (Auto) 10.8 Eos % (Auto) 1.1 Baso % (Auto) 0.5 Neut # (Auto) 3.21 Lymph # (Auto) 1.64 [place] # (Auto) 0.60 H Eos # (Auto) 0.06 Baso # (Auto) 0.03 Immature Gran # (Auto) 0.00 L PT INR APTT PTT Ratio POC Sodium Sodium 137 POC Potassium Potassium 3.6 POC Chloride Chloride 111 H Carbon Dioxide 18 L POC Total CO2 Anion Gap 8 POC Anion Gap POC BUN BUN 9 Creatinine 0.60 POC Creatinine Est Cr Clr Drug Dosing 73.9 Est GFR ( Amer) 100.5 Est GFR (Non-Af Amer) 86.7 BUN/Creatinine Ratio 15.0 Glucose 107 H POC Glucose POC Glucose (other) Calcium 8.7 POC Ioniz Calcium Anastasiia Phosphorus 2.9 Magnesium 2.0 Total Bilirubin 0.9 AST 15 ALT 7 Alkaline Phosphatase 50 Troponin I High Sens Total Protein 6.3 D Albumin 4.1 Globulin 2.2 L Albumin/Globulin Ratio 1.9 TSH 0.054 L Free T4 0.92 Urine Color Yellow Urine Appearance Clear Urine pH 7.5 Ur Specific [place] 1.020 Urine Protein Negative Urine Glucose (UA) Negative Urine Ketones Trace H Urine Blood Trace H Urine Nitrite Positive A Urine Bilirubin Negative Urine Urobilinogen Negative Ur Leukocyte Esterase 1+ H Urine WBC (Auto) >30 H Urine RBC (Auto) 0-4 U Hyaline Cast (Auto) 1-5 U Epithel Cells (Auto) 0-5 Urine Bacteria (Auto) 1+ H Diagnostic Findings Microbiology 07/14/23 17:26 Urine,Clean Catch Urine Culture - Preliminary Gram negative bacilli PG Care Time/CCT Total # of Minutes Spent Total Time Spent with Patient: Total time spent is greater than 50% in coordination of care (as documented) at patient's floor/unit and/or counseling patient: Coding Level of Care Code 25060 SUB INP/OBS CARE 3/50MIN Diagnoses Altered mental status R41.82 Numbness of left hand R20.0 Closed fracture of right distal radius and ulna S52.501A; S52.601A Encounter type: initial encounter Closed fracture of left distal radius S52.502A Encounter type: initial encounter Fracture morphology: unspecified fracture morphology Acute UTI N39.0 Closed C1 fracture S12.001D Encounter type: subsequent encounter Fracture alignment: nondisplaced Fracture healing: with routine healing Fracture morphology: unspecified fracture morphology Fall W19.XXXD Encounter type: subsequent encounter Atrial fibrillation with RVR I48.91 Pacemaker Z95.0 Tremor R25.1 Thrombocytopenia D69.6 Dementia F03.90 Multiple thyroid nodules E04.2 (3) Closed fracture of right distal radius and ulna Encounter type: initial encounter Qualified Code(s): S52.501A - Unspecified fracture of the lower end of right radius, initial encounter for closed fracture; S52.601A - Unspecified fracture of lower end of right ulna, initial encounter for closed fracture (4) Closed fracture of left distal radius Encounter type: initial encounter Fracture morphology: unspecified fracture morphology Qualified Code(s): S52.502A - Unspecified fracture of the lower end of left radius, initial encounter for closed fracture (6) Closed C1 fracture Encounter type: subsequent encounter Fracture alignment: nondisplaced Fracture healing: with routine healing Fracture morphology: unspecified fracture morphology Qualified Code(s): S12.001D - Unspecified nondisplaced fracture of first cervical vertebra, subsequent encounter for fracture with routine healing (7) Fall Encounter type: subsequent encounter Qualified Code(s): W19.XXXD - Unspecified fall, subsequent encounter
[2023-07-15] MEDS: cefTRIAXone SODIUM 1,000 MG in DEXTROSE 5 % MINI-B 50 ML IV SCH (17:39)
[2023-07-15] MEDS ORDERED: risperiDONE 0.5 MG TABLET PO PRN (19:19)
[2023-07-15] MEDS: ACETAMINOPHEN 500 MG TAB PO SCH (20:57)
[2023-07-15] MEDS: MELATONIN 3 MG TAB PO SCH (20:58)
[2023-07-16 09:50] LABS: Hematocrit (blood only) 41.1 % (37.0-47.0); Mean Corpuscular Hemoglobin 32.4 pg (25.0-34.0); Mean Corpuscular Hgb Conc 34.1 g/dL (32.0-36.0); Mean Corpuscular Volume 95.1 fL (80.0-100.0); Platelet Count 151 K/uL (130-400); RDW Standard Deviation 45.3 fL (36.4-46.3); Red Blood Count 4.32 M/uL (4.20-5.40); White Blood Count 4.31 K/ul (4.8-10.8)
[2023-07-16 10:08] LABS: BUN Creatinine Ratio 17.2 (10-20); Calcium 8.9 mg/dl (8.6-10.3); Creatinine Clr Calc Pharmacy 76.5 ml/min; Est GFR (African American) 101.6 ml/min; Est GFR (Non-African American) 87.7 ml/min; Potassium 3.4 mmol/L (3.5-5.1)
[2023-07-16 10:34] LABS: Folate (Folic Acid),Ser orPlas 18.08 ng/ml (>5.38)
[2023-07-16] MEDS: CHOLECALCIFEROL 25 MCG (1000 UNITS) TAB PO SCH (13:37)
[2023-07-16] MEDS: POTASSIUM CHLORIDE CRTAB 20 MEQ TABCR PO SCH (13:37)
[2023-07-16] MEDS: cephALEXin 500 MG CAP PO SCH (19:38)
--- NOTE | 2023-07-16 20:27 | Hospitalist Progress Note ---
Date of Service July 16, 2023 Assessment & Plan (1) Altered mental status: Plan: 2nd to UTI I also suspect some element of head injury (which led to her C1 fracture) which could also be contributing She has had headaches, albeit mild, since admission; easily could have had a mild concussion from her trauma All head imaging without ICH, acute stroke, etc Rx the UTI Avoid sedatives Melatonin 3mg HS to support sleep-wake cycles She has severe, baseline dementia and lives in memory unit at [facility] Overall despite the pleasant confusion she has had NO agitation (2) Numbness of left hand: Plan: Suspect due to nerve contusion of median nerve as a result of her distal radius fracture I reviewed her C-spine imaging with radiology and there is no pathology at the lower cervical spine levels to account for the numbness If any worsening or loss of function consider MRI cervical spine, etc but again defer for now (3) Closed fracture of right distal radius and ulna: Plan: 2nd unwitnessed fall s/p splinting done in ER on 07/13/23 pain control with tylenol 1gm TID scheduled replace low vitamin D consult [facility] tomorrow for additional recs holding Eliquis just in case any operative Rx is recommended for her when ortho evaluates her (4) Closed fracture of left distal radius: Plan: 2nd unwitnessed fall evaluated in ER on 07/12 and underwent splinting spouse reports she has outpatient visit scheduled on 07/16 for evaluation - Dr Stevie Torres will cancel that appt tomorrow since she remains hospitalized (5) Acute UTI: Plan: 2nd e.coli suspect this was brewing around the time of her fall which may have precipitated her fall received 2 doses of IV rocephin stop rocephin change to keflex 500mg BID x 5 days then stop all abx (6) Closed C1 fracture: Plan: soft collar in place I corresponded with Dr Cardona from ortho-spine on 07/14 ok to remove collar for meals & grooming otherwise keep in place at all times has f/u appt 07/[address] Cardona (if she is still hospitalized) by report she initially was in a [place] J collar on 07/12 but did not tolerate it (kept trying to remove it, etc) (7) Fall: Plan: pacemaker integrated 07/12 without events surrounding time of fall PT, OT evals appreciated; platform walker advised for ambulation B12 level wnl CT head and CTAs head/neck without pathology to account for the fall may have been precipitated by brewing UTI (8) Atrial fibrillation with RVR: Plan: cont metoprolol holding Eliquis in the event operative Rx is needed for either wrist/arm (9) Pacemaker: Plan: Interrogated in the ED 07/12 and no events noted around time of unwitnessed fall 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 (10) Tremor: Plan: on topiramate for tremor, migraine prevention by report (11) Thrombocytopenia: Plan: resolved 151 today likely was consumptive in setting of her fractures or 2nd to her UTI either way resolved (12) Dementia: Plan: advanced (13) Multiple thyroid nodules: Plan: TSH suppressed FT4 is normal should simply be repeated as outpatient has had biopsy in the past has a dominant R sided nodule (14) Vitamin D insufficiency: Plan: 25-OH vit D level = 26 replace with vit D supplement - 2000 IU daily Plan DVT proph - eliquis, but hold for now PT/OT gogo appreciated; uncertain if she will need SNF portion at [facility] rather than returning to [facility] level of care spouse updated at bedside again today can d/c tele --> move to med/surg Admission and Anticipated Discharge Date Admission Date: July 14, 2023 Subjective tele - NSR overnight worked with PT today - platform walker advised PT expressed concerns she may need higher level of care than [facility] during the visit pt's spouse was at bedside spouse reports that Ms Krishnamurthy had just a slight headache today eating well patient was pleasantly confused today during the visit only c/o L 1st/2nd/3rd finger numbness no weakness in arms denies neck pain Review of Systems Review of Systems: cv - no chest pain pulm - no dyspnea GI - had a stool early this am; no N/V Physical Exam Physical Exam: gen - NAD, pleasant confusion, looks better than yesterday neck - c-collar in place heart - RRR, s1 s2, no murmur lungs - CTA b/l abd - soft NT ND BS+ ext - no ankle edema, pulses 2+ b/l musculo - b/l wrist/arm splints in place extending from elbows to wrists; ecchymoses noted over several fingers of left hand; able to pattern technician both hands - near 5/5 strength b/l psych - oriented to person only neuro - able to lift both arms equally; no facial droop; 5/5 strength b/l legs -- unchanged exam Results & Data Results & Data Vital Signs (Past 12 Hours) Vital Signs Temp Pulse Pulse Resp BP Pulse Ox O2 Del Method 07/16/23 15:49 94 H 07/16/23 11:09 36.3 C L 99 H 20 109/69 96 Room Air Laboratory Results Laboratory Results - last 24 hr 07/16/23 09:29 WBC 4.31 L RBC 4.32 Hgb 14.0 Hct 41.1 MCV 95.1 MCH 32.4 MCHC 34.1 RDW Std Deviation 45.3 RDW Coeff of Dave 13.0 Plt Count 151 MPV 11.0 Sodium 137 Potassium 3.4 L Chloride 111 H Carbon Dioxide 20 L Anion Gap 6 BUN 10 Creatinine 0.58 L Est Cr Clr Drug Dosing 76.5 Est GFR ( Amer) 101.6 Est GFR (Non-Af Amer) 87.7 BUN/Creatinine Ratio 17.2 Glucose 162 H Calcium 8.9 Vitamin B12 401 25-OH Vitamin D Total 26.0 L Folate 18.08 Diagnostic Findings Microbiology 07/14/23 17:26 Urine,Clean Catch Urine Culture - Final Escherichia coli PG Care Time/CCT Total # of Minutes Spent Total Time Spent with Patient: Total time spent is greater than 50% in coordination of care (as documented) at patient's floor/unit and/or counseling patient: Coding Level of Care Code 49384 SUB INP/OBS CARE 2/35MIN Diagnoses Altered mental status R41.82 Numbness of left hand R20.0 Closed fracture of right distal radius and ulna S52.501A; S52.601A Encounter type: initial encounter Closed fracture of left distal radius S52.502A Encounter type: initial encounter Fracture morphology: unspecified fracture morphology Acute UTI N39.0 Closed C1 fracture S12.001D Encounter type: subsequent encounter Fracture alignment: nondisplaced Fracture healing: with routine healing Fracture morphology: unspecified fracture morphology Fall W19.XXXD Encounter type: subsequent encounter Atrial fibrillation with RVR I48.91 Pacemaker Z95.0 Tremor R25.1 Thrombocytopenia D69.6 Dementia F03.90 Multiple thyroid nodules E04.2 Vitamin D insufficiency E55.9 (3) Closed fracture of right distal radius and ulna Encounter type: initial encounter Qualified Code(s): S52.501A - Unspecified fracture of the lower end of right radius, initial encounter for closed fracture; S52.601A - Unspecified fracture of lower end of right ulna, initial encounter for closed fracture (4) Closed fracture of left distal radius Encounter type: initial encounter Fracture morphology: unspecified fracture morphology Qualified Code(s): S52.502A - Unspecified fracture of the lower end of left radius, initial encounter for closed fracture (6) Closed C1 fracture Encounter type: subsequent encounter Fracture alignment: nondisplaced Fracture healing: with routine healing Fracture morphology: unspecified fracture morphology Qualified Code(s): S12.001D - Unspecified nondisplaced fracture of first cervical vertebra, subsequent encounter for fracture with routine healing (7) Fall Encounter type: subsequent encounter Qualified Code(s): W19.XXXD - Unspecified fall, subsequent encounter
[2023-07-17 09:42] LABS: BUN Creatinine Ratio 23.1 (10-20); Calcium 8.9 mg/dl (8.6-10.3); Creatinine Clr Calc Pharmacy 68.2 ml/min; Est GFR (African American) 97.9 ml/min; Est GFR (Non-African American) 84.4 ml/min; Potassium 3.9 mmol/L (3.5-5.1)
--- NOTE | 2023-07-17 12:04 | Orthopedic Consultation ---
Date of Service July 17, 2023 Assessment & Plan (1) Wrist fracture, bilateral: Patient presentation and plan discussed with Dr. Nick. I long discussion today with the patient about her bilateral wrist pathology with ample amount of time for the patient to ask any questions or state any concerns. All questions and concerns were answered to the patient's satisfaction. At this point, we are going to replace her splints with short arm cast bilaterally. Bilateral short arm cast were applied. Post application physical exam showed that motor and sensation functions maintained and matched preapplication exam. Unchanged blood flow. Less than 2-second capillary refill. Neurovascular intact. Cast cira gement instructions were given to the patient. This will probably have to be relayed by nursing staff due to her altered mental status. She was also given instructions on signs and symptoms to look out for compartment syndrome. She will have to have close follow-ups with orthopedics for fracture management. She should follow-up with orthopedics in 2 weeks post discharge for follow-up fracture care. She should continue to rest, ice, elevation procedures bilaterally. Medical management per primary. Pain analgesics per primary. Please reach out by [place] text or to [facility] orthopedics if the patient's situation is to change. History of Present Illness Reason for Consultation: . Bilateral wrist fractures Requesting Physician: . Attending Physician: Clement Dupree MD . Charleen is a 78-year-old female with some confusion today who we were asked to see on consultation for bilateral wrist fractures. She really does not remember much about what occurred but from her intake form it appears that she had an unwitnessed fall on 07/13/2023 that resulted in her bilateral wrist fractures. She notes that her pain is controlled today but does note that anytime she moves her arm she does feel some discomfort in her wrist bilaterally. She is currently splinted from the emergency department. She denies any other concerns today. Allergies Allergy/AdvReac Type Severity Reaction Status Date / Time ciprofloxacin Allergy Mild rash Verified 07/14/23 17:54 Home Medications Medication Instructions Recorded Confirmed Type alendronate 70 mg tablet 70 mg PO WK 01/09/19 07/14/23 History multivitamin (Multiple Vitamins 1 tab PO QAM 01/09/19 07/14/23 History tablet) loperamide 2 mg tablet 2 mg PO BID 01/20/20 07/14/23 History calcium carbonate 600 mg-vitamin 1 tab PO QAM 02/08/20 07/14/23 History D3 10 mcg (400 unit) tablet (Calcium 600 + D(3)) calcium 650 mg-vitamin D3 12.5 1 tab PO QAM 10/01/20 07/14/23 History mcg-vitamin K 40 mcg chewable tablet (Viactiv) acetaminophen 500 mg tablet 500 mg PO Q6H PRN Pain 07/12/21 07/14/23 History (Tylenol Extra Strength) trazodone 50 mg tablet 25 mg (1/2 x 50 mg) PO HS 90 days 10/16/21 07/14/23 Rx #45 tabs apixaban 5 mg tablet (Eliquis) 5 mg PO BID #180 tabs 04/07/22 07/14/23 Rx metoprolol succinate 50 mg 50 mg PO DAILY #90 tabs 05/19/22 07/14/23 Rx tablet,extended release 24 hr topiramate 50 mg tablet 50 mg PO BID 30 days #60 tabs 07/11/22 07/14/23 Rx meclizine 12.5 mg tablet 12.5 mg PO TID PRN Dizziness 07/18/22 07/14/23 History oxycodone 5 mg tablet 5 mg PO Q6H PRN pain #7 tabs 07/13/23 07/14/23 Rx oxycodone 5 mg tablet 5 mg PO Q6H PRN pain #7 tabs 07/14/23 07/14/23 Rx Past Med/Surg History Medical History (Updated 07/17/23 @ 05:41 by Clement Dupree MD) Frequent diarrhea Multiple thyroid nodules scheduled for biopsy of thyroid 12/30/20 @ [facility] Tremor Anticoagulant long-term use eliquis bid Soft tissue mass Dementia Seasonal allergies Paroxysmal atrial fibrillation on eliquis daily--follows with Dr. Valadez Pacemaker meditronic--inserted 02/12/20 @ [facility] Osteoporosis DVT prophylaxis Adjustment disorder with depressed mood Eustachian tube dysfunction Mild cognitive impairment Rosacea Surgical History History of foot surgery (~2015) left foot cyst removal History of total left knee replacement (TKR) (~03/2007) History of total right knee replacement (TKR) (~2009) History of colonoscopy History of wisdom tooth extraction History of removal of cyst drained off eye History of cardiac pacemaker meditronic--inserted 02/12/20 @ [facility]--follows with Dr. Valadez S/P cholecystectomy S/P abdominal hysterectomy humphrey bso Family History Mother Colon cancer Cancer Father Colon cancer Lung cancer Cancer Other No family history of adverse response to anesthesia Social History Smoking Status: Never smoker Tobacco Type: Cigarettes Age Quit Using Tobacco: 44; packs per day: 1; Second Hand Exposure: No; Do You Dip or Chew Tobacco: No; Hx Alcohol Use: No Hx Substance Use: No Preferred Language: [place] Communication Ability: Impaired Personal Companion Required: No Beliefs That Will Affect Care: None marital status: Current Living Situation: Spouse and Personal Care Facility current occupational status: retired How many Children do You have: 2 Feels Safe at Home: Yes Assistive Devices: None Review of Systems All systems reviewed & are unremarkable except as noted in HPI & below. Physical Exam . Constitutional: well-appearing, no acute distress HEENT: NCAT, no conjunctival injection CV: regular rhythm, no murmur appreciated, extremities well-perfused, no LE edema Resp: CTABL, no wheezes/rales/rhonchi appreciated, no increased work of breathing GI: soft, nondistended, nontender, BS normoactive Skin: warm, dry, no rash appreciated Neuro: alert, oriented, no focal neurologic deficit appreciated. CN II-XII intact, strength 5/5 in UE and LE B/L. Musculoskeletal On physical examination of the right wrist, while in the splint, she is currently immobilized with grossly intact motor and sensation to all 5 digits. She does note discomfort with movement in the fourth and fifth digit. Less than 2-second capillary refill. Normal sensation. Neurovascular intact. Out of the immobilizer, she has a local ecchymosis diffusely throughout the wrist and obvious deformity. Noted radial deviation. Ecchymosis travels both proximally and distally into the hand and forearm. She does have diffuse edema of the upper extremity. She does note discomfort at the wrist. Tenderness to palpation diffusely throughout the wrist. Grossly intact motor function and sensation at the elbow, and all 5 digits. +2 radial pulse. Less than 2-second capillary refill. On physical examination of the left wrist, while in the splint, she is currently immobilized with grossly intact motor and sensation to all 5 digits. Less than 2-second capillary refill. Normal sensation. Neurovascular intact. Out of the immobilizer, she has a local ecchymosis diffusely throughout the wrist. She does have diffuse edema of the upper extremity. She does have discomfort throughout the wrist more predominantly over the radial styloid. Tenderness to palpation diffusely throughout the wrist. Grossly intact motor function and sensation at the elbow, and all 5 digits. +2 radial pulse. Less than 2-second capillary refill. Results & Data Results & Data Laboratory Results . Diagnostic Findings XR wrist RT min 3V routine, XR wrist LT min 3V routine HISTORY: 78 years-old Female FALL, EVAL FX acute bilateral wrist pain status post fall COMPARISON: None TECHNIQUE: 4 views of the bilateral wrists FINDINGS: RIGHT: Demineralized appearance of the bones. 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 Chondrocalcinosis. Acute mildly displaced ulnar styloid fracture. Acute intra-articular, comminuted, mildly impacted and displaced distal radial fracture demonstrates a few millimeters of radial displacement with dorsal displacement of 6 mm. Moderate soft tissue swelling. No additional acute fracture or dislocation. LEFT: Demineralized appearance of the bones. 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 Chondrocalcinosis. Acute intra- articular comminuted distal radial fracture demonstrates 4 mm dorsal displacement/cortical buckling. Mild circumferential soft tissue swelling. No additional acute fracture or dislocation. IMPRESSION: 1. Acute bilateral distal radial fractures as above. 2. Acute and displaced right ulnar styloid fracture. ACT 112: Negative or not required by law. The above report was generated using voice recognition software. It may contain grammatical, syntax or spelling errors. PG Care Time/CCT Total # of Minutes Spent Total Time Spent with Patient: Total time spent is greater than 50% in coordination of care (as documented) at patient's floor/unit and/or counseling patient: Coding Level of Care Code 48192 IN/OBS CONSULT LVL 3,45M Diagnoses Wrist fracture, bilateral S62.101D; S62.102D Encounter type: subsequent encounter Fracture healing: with routine healing Fracture type: closed Additional Codes Fx Wrist - Distal radius: Distal radius ([id number]) (1) Wrist fracture, bilateral Encounter type: subsequent encounter Fracture healing: with routine healing Fracture type: closed Qualified Code(s): S62.101D - Fracture of unspecified carpal bone, right wrist, subsequent encounter for fracture with routine healing; S62.102D - Fracture of unspecified carpal bone, left wrist, subsequent encounter for fracture with routine healing
[2023-07-17] MEDS ORDERED: Nursing to Pharmacy Communication SCH (16:15)
--- NOTE | 2023-07-17 20:38 | Hospitalist Progress Note ---
Date of Service July 17, 2023 Assessment & Plan (1) Altered mental status: Plan: IMPROVED, near baseline per her spouse 2nd to UTI I also suspect some element of head injury (which led to her C1 fracture) which could have also been contributing She had had headaches, albeit mild, since admission; easily could have had a mild concussion from her trauma All head imaging without ICH, acute stroke, etc Cont to Rx the UTI Avoid sedatives Melatonin 3mg HS to support sleep-wake cycles She has severe, baseline dementia and lives in memory unit at [facility] Overall - despite the pleasant confusion - she has had NO agitation (2) Numbness of left hand: Plan: Suspect due to nerve contusion of median nerve as a result of her distal radius fracture Numbness improved I reviewed her C-spine imaging with radiology and there is no pathology at the lower cervical spine levels to account for the numbness If any worsening or loss of function or worsening of the numbness itself consider MRI cervical spine, etc but again defer for now (3) Closed fracture of right distal radius and ulna: Plan: 2nd unwitnessed fall s/p splinting done in ER on 07/13/23 pain control with tylenol 1gm TID scheduled replace low vitamin D appreciate consult by [facility] Orthopedics today splints removed cast placed since she will not need surgery will resume Romelia [facility] Ortho wishes to see her 2 weeks post-discharge for recheck PT recommends use of platform walker for ambulation due to b/l wrist fractures OT eval done - like PT they advise SNF level of care post-discharge (4) Closed fracture of left distal radius: Plan: 2nd unwitnessed fall evaluated in ER on 07/12 and underwent splinting appreciate [facility] ortho consult today splint removed, cast placed see #3 above (5) Acute UTI: Plan: 2nd e.coli suspect this was brewing around the time of her fall which may have precipitated her fall received 2 doses of IV rocephin this admission; now stopped finish 7 day abx course with 5 days of keflex 500mg PO BID (6) Closed C1 fracture: Plan: soft collar in place I corresponded with Dr Cardona from ortho-spine on 07/14 ok to remove collar for meals & grooming otherwise keep in place at all times has f/u appt 07/[address] Cardona but will simply ask him to see her in consult tomorrow on 07/17 by report she initially was in a [place] J collar on 07/12 but did not tolerate it (kept trying to remove it, etc) (7) Fall: Plan: pacemaker integrated 07/12 without events surrounding time of fall PT, OT gogo appreciated; platform walker advised for ambulation B12 level wnl CT head and CTAs head/neck without pathology to account for the fall may have been precipitated by brewing UTI (8) Atrial fibrillation with RVR: Plan: cont metoprolol resuming Eliquis - nonoperative Rx of her b/l wrist fractures is the plan rather than surgery (9) Pacemaker: Plan: Interrogated in the ED 07/12 and no events noted around time of unwitnessed fall 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 (10) Tremor: Plan: on topiramate for tremor, migraine prevention by report (11) Thrombocytopenia: Plan: resolved likely was consumptive in setting of her fractures or 2nd to her UTI (12) Dementia: Plan: advanced (13) Multiple thyroid nodules: Plan: TSH suppressed FT4 is normal should simply be repeated as outpatient has had biopsy in the past has a dominant R sided nodule (14) Vitamin D insufficiency: Plan: 25-OH vit D level = 26 replace with vit D supplement - 2000 IU daily Plan DVT proph - eliquis PT/OT gogo appreciated; uncertain if she will need SNF portion at [facility] rather than returning to [facility] level of care spouse updated at bedside once again today Admission and Anticipated Discharge Date Admission Date: July 14, 2023 Subjective patient had a good night she was in good spirits this am during my visit pt's spouse was at bedside [facility] already came and consulted; replaced her b/l arm splints with b/l casts for her b/l distal radial fractures pt denies any headache or neck pain today pt denies numbness of L hand had BM last pm eating fair-good pt's spouse aware of pending OT eval we are trying to figure out if she will be well enough to return to Memory unit at [facility] vs needing SNF level of care Review of Systems Review of Systems: cv - denies chest pain pulm - denies cough/dyspnea GI - no abd pain/nausea/emesis neuro - denies weakness of either arm or leg Physical Exam Physical Exam: gen - NAD, pleasant confusion, looks good today neck - c-collar in place heart - RRR, s1 s2, no murmur lungs - CTA b/l abd - soft NT ND BS+ ext - no ankle edema, pulses 2+ b/l musculo - b/l wrist/arm casts in place extending from just distal to elbows to wrists; ecchymoses noted over several fingers of left hand - improving; 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 - near 5/5 strength b/l psych - oriented to person only neuro - able to lift both arms equally; no facial droop; 5/5 strength b/l legs; speech more fluent today in comparison to prior exams Results & Data Results & Data Vital Signs (Past 12 Hours) Vital Signs Temp Pulse Resp BP Pulse Ox O2 Del Method 07/17/23 12:25 36.4 C L 64 15 132/70 98 Room Air Laboratory Results Laboratory Results - last 24 hr 07/17/23 09:02 Sodium 141 Potassium 3.9 Chloride 113 H Carbon Dioxide 23 Anion Gap 5 BUN 15 Creatinine 0.65 Est Cr Clr Drug Dosing 68.2 Est GFR ( Amer) 97.9 Est GFR (Non-Af Amer) 84.4 BUN/Creatinine Ratio 23.1 H Glucose 89 Calcium 8.9 PG Care Time/CCT Total # of Minutes Spent Total Time Spent with Patient: Total time spent is greater than 50% in coordination of care (as documented) at patient's floor/unit and/or counseling patient: Coding Level of Care Code 14351 SUB INP/OBS CARE 3/50MIN Diagnoses Altered mental status R41.82 Numbness of left hand R20.0 Closed fracture of right distal radius and ulna S52.501A; S52.601A Encounter type: initial encounter Closed fracture of left distal radius S52.502A Encounter type: initial encounter Fracture morphology: unspecified fracture morphology Acute UTI N39.0 Closed C1 fracture S12.001D Encounter type: subsequent encounter Fracture alignment: nondisplaced Fracture healing: with routine healing Fracture morphology: unspecified fracture morphology Fall W19.XXXD Encounter type: subsequent encounter Atrial fibrillation with RVR I48.91 Pacemaker Z95.0 Tremor R25.1 Thrombocytopenia D69.6 Dementia F03.90 Multiple thyroid nodules E04.2 Vitamin D insufficiency E55.9 (3) Closed fracture of right distal radius and ulna Encounter type: initial encounter Qualified Code(s): S52.501A - Unspecified fracture of the lower end of right radius, initial encounter for closed fracture; S52.601A - Unspecified fracture of lower end of right ulna, initial encounter for closed fracture (4) Closed fracture of left distal radius Encounter type: initial encounter Fracture morphology: unspecified fracture morphology Qualified Code(s): S52.502A - Unspecified fracture of the lower end of left radius, initial encounter for closed fracture (6) Closed C1 fracture Encounter type: subsequent encounter Fracture alignment: nondisplaced Fracture healing: with routine healing Fracture morphology: unspecified fracture morphology Qualified Code(s): S12.001D - Unspecified nondisplaced fracture of first cervical vertebra, subsequent encounter for fracture with routine healing (7) Fall Encounter type: subsequent encounter Qualified Code(s): W19.XXXD - Unspecified fall, subsequent encounter
[2023-07-17] MEDS: ACETAMINOPHEN 500 MG TAB PO SCH (21:04)
[2023-07-18] MEDS: ACETAMINOPHEN 500 MG TAB PO SCH (08:19)
--- NOTE | 2023-07-18 12:09 | Orthopedic Consultation ---
Date of Service July 18, 2023 Assessment & Plan (1) Closed C1 fracture: Patient presentation and plan discussed with Dr. Cardona. I had a long discussion today with the patient about her C1 lateral mass fracture in great detail with ample amount of time patient to ask any questions or state any concerns. All questions and concerns were answered to the patient satisfaction. At this time, we can proceed with nonoperative management. She will remain in her soft collar at this point due to her not being able to tolerate the [place] J hard collar. She will more likely need to maintain this mobilization till it starts healing. She may continue working with physical therapy and Occupational Therapy. She will follow-up with Dr. Cardona once she is discharged for fracture management. Medical management per primary. Please reach out by [place] text or to [facility] orthopedics if this patient's situation is to change. History of Present Illness Reason for Consultation: . C1 lateral mass fracture Requesting Physician: . Attending Physician: Glenys Arguelles MD . Charleen is a 78-year-old female with some confusion today who we were asked to see on consultation for a C1 right lateral mass fracture. She does not remember much about what occurred but from what her intake form says it appears that she had an unwitnessed fall on 07/13/2023 that resulted in her C1 right lateral mass fracture. She notes that her pain is controlled today and her soft collar. She also does have bilateral wrist fractures that were casted yesterday. She notes that she has no symptoms other than a little bit of numbness to the left hand and which has improved since her stay here. This was probably secondary to a nerve contusion. She denies any other symptoms today. Allergies Allergy/AdvReac Type Severity Reaction Status Date / Time ciprofloxacin Allergy Mild rash Verified 07/14/23 17:54 Home Medications Medication Instructions Recorded Confirmed Type alendronate 70 mg tablet 70 mg PO WK 01/09/19 07/14/23 History multivitamin (Multiple Vitamins 1 tab PO QAM 01/09/19 07/14/23 History tablet) loperamide 2 mg tablet 2 mg PO BID 01/20/20 07/14/23 History calcium carbonate 600 mg-vitamin 1 tab PO QAM 02/08/20 07/14/23 History D3 10 mcg (400 unit) tablet (Calcium 600 + D(3)) calcium 650 mg-vitamin D3 12.5 1 tab PO QAM 10/01/20 07/14/23 History mcg-vitamin K 40 mcg chewable tablet (Viactiv) acetaminophen 500 mg tablet 500 mg PO Q6H PRN Pain 07/12/21 07/14/23 History (Tylenol Extra Strength) trazodone 50 mg tablet 25 mg (1/2 x 50 mg) PO HS 90 days 10/16/21 07/14/23 Rx #45 tabs apixaban 5 mg tablet (Eliquis) 5 mg PO BID #180 tabs 04/07/22 07/14/23 Rx metoprolol succinate 50 mg 50 mg PO DAILY #90 tabs 05/19/22 07/14/23 Rx tablet,extended release 24 hr topiramate 50 mg tablet 50 mg PO BID 30 days #60 tabs 07/11/22 07/14/23 Rx meclizine 12.5 mg tablet 12.5 mg PO TID PRN Dizziness 07/18/22 07/14/23 History oxycodone 5 mg tablet 5 mg PO Q6H PRN pain #7 tabs 07/13/23 07/14/23 Rx oxycodone 5 mg tablet 5 mg PO Q6H PRN pain #7 tabs 07/14/23 07/14/23 Rx Past Med/Surg History Medical History (Updated 07/17/23 @ 05:41 by Clement Dupree MD) Frequent diarrhea Multiple thyroid nodules scheduled for biopsy of thyroid 12/30/[address] [facility] Tremor Anticoagulant long-term use eliquis bid Soft tissue mass Dementia Seasonal allergies Paroxysmal atrial fibrillation on eliquis daily--follows with Dr. Valadez Pacemaker meditronic--inserted 02/12/[address] [facility] Osteoporosis DVT prophylaxis Adjustment disorder with depressed mood Eustachian tube dysfunction Mild cognitive impairment Rosacea Surgical History History of foot surgery (~2015) left foot cyst removal History of total left knee replacement (TKR) (~03/2007) History of total right knee replacement (TKR) (~2009) History of colonoscopy History of wisdom tooth extraction History of removal of cyst drained off eye History of cardiac pacemaker meditronic--inserted 02/12/[address] [facility]--follows with Dr. Valadez S/P cholecystectomy S/P abdominal hysterectomy humphrey bso Family History Mother Colon cancer Cancer Father Colon cancer Lung cancer Cancer Other No family history of adverse response to anesthesia Social History Smoking Status: Never smoker Tobacco Type: Cigarettes Age Quit Using Tobacco: 44; packs per day: 1; Second Hand Exposure: No; Do You Dip or Chew Tobacco: No; Hx Alcohol Use: No Hx Substance Use: No Preferred Language: Spanish Communication Ability: Impaired Biometrics Instructor Required: No Beliefs That Will Affect Care: None marital status: Current Living Situation: Spouse and Personal Care Facility current occupational status: retired How many Children do You have: 2 Feels Safe at Home: Yes Assistive Devices: None Review of Systems All systems reviewed & are unremarkable except as noted in HPI & below. Physical Exam . Constitutional: well-appearing, no acute distress HEENT: NCAT, no conjunctival injection CV: regular rhythm, no murmur appreciated, extremities well-perfused, no LE edema Resp: CTABL, no wheezes/rales/rhonchi appreciated, no increased work of breathing GI: soft, nondistended, nontender, BS normoactive Skin: warm, dry, no rash appreciated Neuro: alert, oriented, no focal neurologic deficit appreciated. CN II-XII intact, strength 5/5 in UE and LE B/L. Musculoskeletal On physical examination of the cervical spine, she is currently immobilized in a soft collar. No tenderness over the spinal processes or paravertebral musculature. Range of motion of the neck was not assessed due to the need for immobilization. Grossly intact motor and sensory function to the bilateral upper extremity. +2 radial pulse. Less than 2-second capillary refill. Normal sensation. Neurovascular intact. Results & Data Results & Data Laboratory Results Exam(s): CT C SPINE EXAM: CT Cervical Spine Without Intravenous Contrast CLINICAL HISTORY: Reason for exam: Trauma. TECHNIQUE: Axial computed tomography images of the cervical spine without intravenous contrast. CTDI is 23.99 mGy and DLP is 459.06 mGy-cm. Automated exposure control was utilized for the study. A dose lowering technique was utilized adhering to the principles of ALARA. COMPARISON: No relevant prior studies available. FINDINGS: Vertebrae: Nondisplaced fracture of the right C1 lateral mass . No other fracture. Osteopenia. Multilevel degenerative disc disease with uncovertebral and facet hypertrophy. Soft tissues: Unremarkable. Thyroid: Right thyroid nodule measuring 3.6 cm. IMPRESSION: 1. Nondisplaced fracture of the right C1 lateral mass . 2. Right thyroid nodule measuring 3.6 cm. Consider nonemergent outpatient thyroid ultrasound. Electronically signed by: Jorden Phillips MD 07/13/23 21:34 PM Diagnostic Findings . PG Care Time/CCT Total # of Minutes Spent Total Time Spent with Patient: Total time spent is greater than 50% in coordination of care (as documented) at patient's floor/unit and/or counseling patient: Coding Level of Care Code 33555 IN/OBS CONSULT LVL 3,45M Diagnoses Closed C1 fracture S12.001D Encounter type: subsequent encounter Fracture alignment: nondisplaced Fracture healing: with routine healing Fracture morphology: unspecified fracture morphology Additional Codes Fx Spine - Vertebral body: Vertebral Body ([id number]) (1) Closed C1 fracture Encounter type: subsequent encounter Fracture alignment: nondisplaced Fracture healing: with routine healing Fracture morphology: unspecified fracture morphology Qualified Code(s): S12.001D - Unspecified nondisplaced fracture of first cervical vertebra, subsequent encounter for fracture with routine healing
--- NOTE | 2023-07-18 17:34 | Hospitalist Progress Note ---
Date of Service July 18, 2023 Assessment & Plan (1) Altered mental status: Plan: IMPROVED, near baseline per her spouse 2nd to UTI I also suspect some element of head injury (which led to her C1 fracture) which could have also been contributing She had had headaches, albeit mild, since admission; easily could have had a mild concussion from her trauma All head imaging without ICH, acute stroke, etc Cont to Rx the UTI Avoid sedatives Melatonin 3mg HS to support sleep-wake cycles She has severe, baseline dementia and lives in memory unit at [facility] (2) Numbness of left hand: Plan: Suspect due to nerve contusion of median nerve as a result of her distal radius fracture Numbness improved or resolved I reviewed her C-spine imaging with radiology and there is no pathology at the lower cervical spine levels to account for the numbness (3) Closed fracture of right distal radius and ulna: Plan: 2nd unwitnessed fall s/p splinting done in ER on 07/13/23 pain control with tylenol 1gm TID scheduled replace low vitamin D appreciate consult by [facility] Orthopedics, nonoperative management has bilateral casts, ambulating with platform walker, signed DME orders [facility] Ortho wishes to see her 2 weeks post-discharge for recheck (4) Closed fracture of left distal radius: Plan: 2nd unwitnessed fall casted see above (5) Acute UTI: Plan: 2nd e.coli suspect this was brewing around the time of her fall which may have precipitated her fall received 2 doses of IV rocephin this admission; now stopped finish 7 day abx course with 5 days of keflex 500mg PO BID (6) Closed C1 fracture: Plan: soft collar in place, intolerant of [place] J hard collar ok to remove collar for meals & grooming otherwise keep in place at all times -ortho spine consulted 07/17 -follow up with Dr. 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 (10) Tremor: Plan: on topiramate for tremor, migraine prevention by report (11) Thrombocytopenia: Plan: resolved likely was consumptive in setting of her fractures or 2nd to her UTI (12) Dementia: Plan: advanced (13) Multiple thyroid nodules: Plan: TSH suppressed FT4 is normal should simply be repeated as outpatient has had biopsy in the past has a dominant R sided nodule (14) Vitamin D insufficiency: Plan: 25-OH vit D level = 26 replace with vit D supplement - 2000 IU daily Plan DVT proph - eliquis plan to return to [facility] with PT/OT Admission and Anticipated Discharge Date Admission Date: July 14, 2023 Subjective doing well, saw while/after walking back from bathroom with therapist. No pain in wrists, neck currently Pleasantly confused Physical Exam 2 Physical Exam: PHYSICAL EXAMINATION Last 24h vital signs reviewed, see documentation in flowsheet General: comfortable appearing, no distress HEENT: moist mucus membranes, wearing soft cervical collar Lungs: Normal respiratory effort. Clear to auscultation bilaterally. No RRW Heart: Regular rate and rhythm, no murmurs. No JVD Abdomen: Soft, nontender, nondistended. Bowel sounds present. Extremities: Warm, dry, well-perfused. No extremity edema. bilateral wrists and forearms casted, fingers are wwp Neuro: Alert and oriented x self, partially to situation, can converse about distant events, forgetful/confused, face symmetric, moves 4 extremities well Psych: Normal affect and behavior Results & Data Results & Data Vital Signs (Past 12 Hours) Vital Signs Temp Pulse Resp BP Pulse Ox O2 Del Method 07/18/23 14:27 36.4 C L 67 18 136/84 96 Room Air 07/18/23 07:24 36.8 C 81 18 124/79 94 Room Air Laboratory Results 07/16/23 09:29 07/17/23 09:02 PG Care Time/CCT Total # of Minutes Spent Total Time Spent with Patient: Total time spent is greater than 50% in coordination of care (as documented) at patient's floor/unit and/or counseling patient: Coding Level of Care Code 16468 SUB INP/OBS CARE 2/35MIN Diagnoses Altered mental status R41.82 Numbness of left hand R20.0 Closed fracture of right distal radius and ulna S52.501A; S52.601A Encounter type: initial encounter Closed fracture of left distal radius S52.502A Encounter type: initial encounter Fracture morphology: unspecified fracture morphology Acute UTI N39.0 Closed C1 fracture S12.001D Encounter type: subsequent encounter Fracture alignment: nondisplaced Fracture healing: with routine healing Fracture morphology: unspecified fracture morphology Fall W19.XXXD Encounter type: subsequent encounter Atrial fibrillation with RVR I48.91 Pacemaker Z95.0 Tremor R25.1 Thrombocytopenia D69.6 Dementia F03.90 Multiple thyroid nodules E04.2 Vitamin D insufficiency E55.9 (3) Closed fracture of right distal radius and ulna Encounter type: initial encounter Qualified Code(s): S52.501A - Unspecified fracture of the lower end of right radius, initial encounter for closed fracture; S52.601A - Unspecified fracture of lower end of right ulna, initial encounter for closed fracture (4) Closed fracture of left distal radius Encounter type: initial encounter Fracture morphology: unspecified fracture morphology Qualified Code(s): S52.502A - Unspecified fracture of the lower end of left radius, initial encounter for closed fracture (6) Closed C1 fracture Encounter type: subsequent encounter Fracture alignment: nondisplaced F racture healing: with routine healing Fracture morphology: unspecified fracture morphology Qualified Code(s): S12.001D - Unspecified nondisplaced fracture of first cervical vertebra, subsequent encounter for fracture with routine healing (7) Fall Encounter type: subsequent encounter Qualified Code(s): W19.XXXD - Unspecified fall, subsequent encounter
--- NOTE | 2023-07-19 19:11 | Discharge Summary ---
Date of Service July 19, 2023 Admission HPI Per Admitting Provider 78 year female with a past medical history of dementia, A fib w/ RVR on Eliquis, tachybradycardia syndrome s/p pacemaker, tremor, migraine, osteoporosis presenting with increased confusion. Is at memory care at [facility]. Her partner was at bedside and aided in providing history. Was seen in the ED yesterday after an unwitnessed fall. Pt does not remember what happened. She was found sitting on the ground with her hands behind her back. Yesterday in the ED she was found to have B/L distal radius fracture, C1 fracture. She was d/c back to [facility]. This morning nursing at [facility] noted increased confusion, was only putting together 3-5 word sentences, would not take her medications. Her partner states that she has not taken any of her medications since the morning of 07/12. She was given a script for oxycodone after ED visit 07/12, but did not take any. Charleen states that her only complaint is intermittent frontal headache. Denies weakness, chest pain, dyspnea, nausea/vomiting, fever/chills, vision changes. ED work significant for: Head CT, CTA Head/Neck without acute pathology. UA +blood, nitrites, LE. Was given 1.5L IVF, ceftriaxone. Principal Diagnosis acute metabolic encephalopathy related to UTI and possible concussion, present on admission, bilateral wrist fractures, C1 cervical fracture Discharge Exam PHYSICAL EXAMINATION Last 24h vital signs reviewed, see documentation in flowsheet General: ambulating well in hallway with physical therapist standby assistance and use of bilateral platform walker HEENT: moist mucus membranes, wearing soft cervical collar Extremities: Warm, dry, well-perfused. No extremity edema. bilateral wrists and forearms casted Neuro: Alert and oriented x self, partially to situation, conversational, forgetful/confused, face symmetric, moves 4 extremities well, walks steadily with walker Psych: Normal affect and behavior Discharge Data Allergies Allergy/AdvReac Type Severity Reaction Status Date / Time ciprofloxacin Allergy Mild rash Verified 07/14/23 17:54 Consultations 07/14/23 17:32 ED Decision to Admit Stat 07/17/23 08:04 Consult Orthopedic Surgery Routine 07/18/23 07:44 Consult Orthopedic Spine Surgery Routine Ordered Studies 07/14/23 15:18 CT angio head w con Stat CT angio neck with con Stat CT head/brain wo con Stat Head CT 07/14/23 15:[address] DOSE: HISTORY: neuro deficit, acute stroke suspected TECHNIQUE: Multiaxial CT images of the head were performed without the use of intravenous contrast. Automated exposure control was utilized for this study. A dose lowering technique was utilized adhering to the principles of ALARA. Comparison: Head CT and cervical spine CT 07/13/2023.. Findings: The paranasal sinuses and mastoid air cells are clear. The calvarium and skull base are intact. There is no mass, hematoma, midline shift, acute infarct. White matter hypodensity is nonspecific but suggestive of microvascular ischemic change. The ventricles and sulci demonstrate mild age-related involutional changes. Nondisplaced right C1 fracture again noted. Impression: 1. No acute infarct or intracranial hemorrhage. 2. Nondisplaced right C1 fracture again noted. ACT 112: Negative or not required by law. Electronically signed by: Kirill Forde M.D. 07/14/2023 4:57 PM Head CTA 07/14/23 15:18 HEAD CTA HISTORY: neuro deficit, acute stroke suspected TECHNIQUE: Multiaxial CT images of the head were performed both before and after the intravenous administration of contrast to evaluate the major cerebral vessels. 3D/MIP images were also obtained. Sagittal and coronal reformats were reviewed. A dose lowering technique was utilized adhering to the principles of ALARA. COMPARISON: Head CT 07/13/2023. Head CTA 09/29/2020. FINDINGS: There is no mass, hematoma, midline shift, or acute infarct. Visualized intracranial internal carotid arteries, distal vertebral arteries, and basilar artery are widely patent. 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 Nondisplaced right C1 fracture again noted. The major dural venous sinuses are patent. Mild calcified plaque within the bilateral carotid siphons. IMPRESSION: 1. No significant stenosis, occlusion, or aneurysm within the [place]. 2. Nondisplaced right C1 fracture again noted. ACT 112: Negative or not required by law. Electronically signed by: Kirill Forde M.D. 07/14/2023 5:00 PM Neck CTA 07/14/23 15:18 CT ANGIOGRAPHY OF THE NECK WITH CONTRAST CLINICAL HISTORY: neuro deficit, acute stroke suspected COMPARISON STUDY: CTA of the neck September 29, 2020. Cervical spine CT July 13, 2023. Technique: CT angiography of the carotid and vertebral arteries was obtained using Optir[employer] and 3D reconstruction on an independent workstation. NASCET criteria was utilized. Automated exposure control was utilized for the study. A dose lowering technique was utilized adhering to the principles of ALARA. CT DOSE: 974.43 mGy.cm Findings: A right lobe thyroid nodule is again noted. An acute nondisplaced fracture of the right lateral mass of C1 is unchanged since CT of July 13, 2023. No additional acute cervical spine fractures are identified. The bilateral common carotid, cervical internal carotid and vertebral arteries are patent. There is moderate plaque within the carotid bifurcations without stenosis. There is no aneurysm or dissection within the neck IMPRESSION: 1. No stenosis or dissection within the bilateral common carotid, cervical internal carotid or vertebral arteries. Moderate atherosclerotic plaque within the carotid bifurcations. 2. No change in alignment of an acute nondisplaced fracture of the right lateral mass of C1. ACT 112: Negative or not required by law. Electronically signed by: Piotr Dobbs M.D. 07/14/2023 4:50 PM Chest X-Ray 07/14/23 17:26 XR chest 1V portable HISTORY: Altered mental status. Fall. COMPARISON: Chest 09/29/2020. FINDINGS: There are low lung volumes. No pneumothorax. No pleural effusions. Mild chronic interstitial thickening remains unchanged. No new focal lung consolidations to suggest a pneumonia. No evidence for pulmonary edema. Is left- sided dual-chamber pacemaker. The heart is normal in size. No acute fractures identified. IMPRESSION: No significant change compared to the prior study. No acute process. ACT 112: Negative or not required by law. Electronically signed by: Kirill Forde M.D. 07/14/2023 6:42 PM Hospital Course (1) Altered mental status: Altered mental status present on admission related to acute metabolic encephalopathy from urinary tract infection and possible mild concussion were present on admission IMPROVED, near baseline per her spouse 2nd to UTI suspect some element of head injury (which led to her C1 fracture) which could have also been contributing She had had headaches, albeit mild, since admission; easily could have had a mild concussion from her trauma All head imaging without ICH, acute stroke, etc Cont to Rx the UTI Avoid sedatives She has severe, baseline dementia and lives in memory unit at [facility] (2) Numbness of left hand: Suspect due to nerve contusion of median nerve as a result of her distal radius fracture Numbness improving Dr. Dupree reviewed her C-spine imaging with radiology and there is no pathology at the lower cervical spine levels to account for the numbness (3) Closed fracture of right distal radius and ulna: 2nd unwitnessed fall s/p splinting done in ER on 07/13/23 pain control with tylenol 1gm TID scheduled replace low vitamin D appreciate consult by [facility] Orthopedics, nonoperative management has bilateral casts, ambulating with platform walker, signed DME orders [facility] Ortho wishes to see her 2 weeks post-discharge for recheck (4) Closed fracture of left distal radius: 2nd unwitnessed fall casted see above (5) Acute UTI: 2nd e.coli suspect this was brewing around the time of her fall which may have precipitated her fall received 2 doses of IV rocephin this admission; now stopped finish 7 day abx course with 5 days of keflex 500mg PO BID (6) Closed C1 fracture: soft collar in place, intolerant of [place] hard collar ok to remove collar for meals & grooming otherwise keep in place at all times -ortho consulted 07/17 -follow up with Dr. Cardona (7) Fall: pacemaker integrated 07/12 without events surrounding time of fall PT, OT evals appreciated; platform walker advised for ambulation B12 level wnl CT head and CTAs head/neck without pathology to account for the fall may have been precipitated by brewing UTI (8) Atrial fibrillation with RVR: cont metoprolol, apixaban (9) Pacemaker: Interrogated in the ED 07/12 and no events noted around time of unwitnessed fall 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 (10) Tremor: on topiramate for tremor, migraine prevention by report (11) Thrombocytopenia: resolved likely was consumptive in setting of her fractures or 2nd to her UTI (12) Dementia: advanced (13) Multiple thyroid nodules: TSH suppressed FT4 is normal should simply be repeated as outpatient has had biopsy in the past has a dominant R sided nodule (14) Vitamin D insufficiency: 25-OH vit D level = 26 replace with vit D supplement - 2000 IU daily Plan return to [facility] with PT/OT Total Time Total Time Spent Total Time Spent (In Minutes): I personally spent: 35 minutes today on clinical care activities including: reviewing chart notes and vital signs discussion with attending ambulatory care examining the patient writing discharge orders and instructions documentation Discharge Plan Discharge Items Patient Disposition: Personal Usp Reason For Visit: AMS Discharge Diagnosis: fall, wrist fractures, cervical fracture, UTI Condition on Discharge: Fair Activity: Per Instructions section Non-emergency contact: Primary Care Provider Call non-emergency contact if: you have any medication questions and your symptoms worsen Follow-up/Referrals: Sharron Garza CRNP [Primary Care Provider] - Akash Cardona MD [Surgeon] - (cervical fracture) Eran Nick MD [Physician] - (wrist fractures) Diet: Regular Addtl Attending Provider Instructions: You were treated for urinary tract infection. Urine culture grew (sensitive) E. coli. Take cephalexin through the evening of 07/20, this completes a 7+ day course of treatment Follow up with orthopedics in 2 weeks for wrist fractures. The left hand numbness is likely related to a nerve contusion from the fall/fracture and seems to be improving with time. Keep the casts dry. Please schedule follow up with Dr. Cardona for the C1 cervical fracture. Wear the soft collar at all times, except you can remove it for bathing. Your vitamin D level was low - this can affect bone healing and fracture risk. Recommend vitamin D supplement 2000 units daily Ask your primary care doctor to recheck your TSH in 4-6 weeks. It was mildly abnormal in the hospital, but that often can happen with acute illnesses. PT and OT evaluate and treat Double-platform walker for ambulation, needs assistance with steering Pending Studies at Discharge: No Stand-Alone Forms: My [facility] [employer], Smoking Cessation Skilled Items Patient informed of condition?: Yes DNR: Yes Discharge Level of Care: Other Communicable Disease: No Discharge Prognosis: Improving Lines: None Urinary Catheter: No Medications and DC Order Prescriptions: New cephalexin 500 mg Capsule 500 mg PO BID Qty: 5 0RF acetaminophen [Tylenol Extra Strength] 500 mg Tablet 1,000 mg PO TID 14 Days Qty: 84 0RF Rx Instructions: may buy OTC cholecalciferol (vitamin D3) 25 mcg (1,000 unit) Capsule 50 mcg PO QAM Qty: 60 0RF Rx Instructions: may buy OTC Continued trazodone 50 mg tablet 25 mg PO HS 90 Days Qty: 45 1RF Eliquis 5 mg tablet 5 mg PO BID Qty: 180 3RF metoprolol succinate 50 mg tablet extended release 24 hr 50 mg PO DAILY Qty: 90 3RF topiramate 50 mg tablet 50 mg PO BID 30 Days Qty: 60 2RF Rx Instructions: For tremor and vertigo/headaches meclizine 12.5 mg tablet 12.5 mg PO TID PRN (Reason: Dizziness) alendronate 70 mg tablet 70 mg PO WK Rx Instructions: on multivitamin [Multiple Vitamins] tablet 1 tab PO QAM calcium carbonate-vitamin D3 [Calcium 600 + D(3)] 600 mg(1,500mg) -400 unit Tablet 1 tab PO QAM loperamide 2 mg Tablet 2 mg PO BID Held acetaminophen [Tylenol Extra Strength] 500 mg tablet 500 mg PO Q6H PRN (Reason: Pain) Hold Instructions: Resume on 08/02/23. Discontinued calcium-vitamin D3-vitamin K [Viactiv] 650 mg-12.5 mcg-40 mcg Tablet,Chewable 1 tab PO QAM oxycodone 5 mg tablet 5 mg PO Q6H PRN (Reason: pain) Qty: 7 0RF Rx Instructions: Initial Treatment oxycodone 5 mg tablet 5 mg PO Q6H PRN (Reason: pain) Qty: 7 0RF Rx Instructions: Initial Treatment Discharge Orders: Discharge Order (Routine); Ordered 07/19/23 Ordered By: Glenys Zapata/Other Patient Handouts: Cephalexin Oral Capsule Admission Data Admit Date/Time: 07/14/23 18:39 Attending Provider: Glenys Arguelles Admit Provider: Jessica Bedoya Primary Care Provider: Sharron Garza Other Providers: Lupillo Zavala; Eran Nick; Akash Cardona Other Interventions: Discharge Summary Assessment (RN) Last Done: 07/19/23 10:25 Coding Level of Care Code 97394 INP/OBS DISCH >30 MIN Diagnoses Altered mental status R41.82 Numbness of left hand R20.0 Closed fracture of right distal radius and ulna S52.501A; S52.601A Encounter type: initial encounter Closed fracture of left distal radius S52.502A Encounter type: initial encounter Fracture morphology: unspecified fracture morphology Acute UTI N39.0 Closed C1 fracture S12.001D Encounter type: subsequent encounter Fracture alignment: nondisplaced Fracture healing: with routine healing Fracture morphology: unspecified fracture morphology Fall W19.XXXD Encounter type: subsequent encounter Atrial fibrillation with RVR I48.91 Pacemaker Z95.0 Tremor R25.1 Thrombocytopenia D69.6 Dementia F03.90 Multiple thyroid nodules E04.2 Vitamin D insufficiency E55.9 Home Health Attestation I certify that this patient is under my care and that I, or a physicians assistant director of security working with me, had a face to-face encounter that meets the home health [id number] encounter requirements with this patient. The encounter with the patient was in whole, or in part, for the following medical condition, which is the primary reason for home health care (list medical condition): bilateral wrist fractures, cervical fracture I certify that, based on my findings, the following services are medically necessary home health services: physical therapy and Occupational Therapy My clinical findings support the need for the above services because: pain, impaired gait and exertional tolerance due to multiple fractures, requiring walker and assistance for ambulation Further, I certify that my clinical findings support that this patient is homebound (i.e. absences from home require considerable and taxing effort and are for medical reasons or evangelical services or infrequently or of short duration when for other reasons) because: pain, impaired gait and exertional tolerance due to multiple fractures, requiring walker and assistance for ambulation Certification for Home Health Services: Based on the above findings, I certify that this patient is confined to the home and needs intermittent nursing home care, physical therapy and/or speech therapy or continues to need occupational therapy. The patient is under my care, and I have initiated the establishment of the plan of care. This patient will be followed by a physician who will periodically review the plan of care.
--- NOTE | 2023-07-21 14:19 | Coding Query ---
To promote full compliance with coding requirements relating to patient care, physician participation is requested in all cases of alteration specialist uncertainty. Please assist us with the question(s) below: Coding Question(s): It was noted throughout the record that the patient has/is suspected to have osteoporosis. According to coding guidelines "a code for osteoporotic fracture, and not a traumatic fracture, should be used for any patient with known osteoporosis who suffers a fracture, even if the patient had a minor fall or trauma, if that fall or trauma would not usually break a normal, healthy bone." Please indicate below the type of fracture: Physician's Response(s): ( x ) Osteoporotic fracture of Bilateral Wrists and C1 Cervical Fracture ( ) Traumatic fracture of Bilateral Wrists and C1 Cervical Fracture ( ) Other, please specify MTDD
== END 2023-07-19 11:58 | disposition home or self-care (01) | DRG 689 ==
LOC: ED 15:12 → SUATTDRO 18:39 → EDINP 18:39 → 2N 20:19 → 3E 07-16 21:05